=== PATIENT | female | born 1930 | race Caucasian/White ===

== ENCOUNTER 2018-08-14 10:49 | Outpatient (CLI) | payer MEDICARE, BC ==
--- NOTE | 2018-08-14 12:06 | RAD ---
Exam: XR Hip Lt 2-3 View HISTORY: Left hip pain COMPARISON: None FINDINGS: There is a left total hip prosthesis with a lateral plate and multiple cerclage wires seen. No hardwa re complication is appreciated. No fracture or dislocation is seen. There is a remote healed fracture involving the left superior and inferior pubic rami. Osteopenia is present. Vascular calcifi cations and phleboliths overlie the pelvis. IMPRESSION: 1. Osteopenia with remote fractures involving left superior and inferior pubic rami. 2. Left total hip prosthesis without hardware complication appreciated. 3. No acute fracture or dislocation is seen.
--- NOTE | 2018-08-14 12:09 | RAD ---
EXAM: XR Lumbar Spine Bending Min 4V PROVIDED CLINICAL HISTORY: Intervertebral disc disorder with radiculopathy on the left. COMPARISON: None FINDINGS: There are 5 nonrib-bearing lumbar-type vertebral bodies. Scattered minimal osteophytes are present. A wedge-shaped compression fracture is seen involving the T11 vertebral body as well as superior endplate of the T12 vertebral body. In addition there is slight wedge-shaped deformity involving the L1 vertebral body which is likely due to minimal compression fracture of indeterminate age. Schmorl's node is seen in the inferior plate of L1 vertebral body. No level of subluxation is seen. Facet degenerative changes are noted. Vascular calcifications are seen in the abdominal aorta and involving the iliac arteries. Partial vis ualization of left total hip prosthesis is noted. IMPRESSION: 1. Compression fractures involving the T11, T12, and inferior endplate L1 vertebral bodies of indeter minate age. 2. Mild degenerative changes. 3. Prominent vascular calcifications.
--- NOTE | 2018-08-14 12:26 | RAD ---
Exam: Cervical spine 4 views: HISTORY: Spondylosis of the cervical region without radiculopathy or myelopathy FINDINGS: Exam includes standing flexion and extension views. Extensive multilevel disc osteophytosis and facet arthrosis. Mild stable anterolisthesis of C6 on C7. No evidence for abnormal translation. Heterogeneous bony demineralization. No prevertebral soft tissue swelling. IMPRESSION: Severe cervical spondylosis with mild anterolisthesis of C6 on C7 without evidence for abnormal trans lation.
== END 2018-08-14 10:50 | disposition home or self-care (01) ==
LOC: RAD 10:49
PROVIDERS: ATTEND Specialist
DX: M51.16 Intervertebral disc disorders with radiculopathy, lumbar region (principal); M25.552 Pain in left hip; M47.812 Spondylosis without myelopathy or radiculopathy, cervical region; M43.12 Spondylolisthesis, cervical region; M48.54XA Collapsed vertebra, not elsewhere classified, thoracic region, initial encounter for fracture; M47.26 Other spondylosis with radiculopathy, lumbar region; I70.0 Atherosclerosis of aorta; I70.8 Atherosclerosis of other arteries; M85.80 Other specified disorders of bone density and structure, unspecified site; Z96.642 Presence of left artificial hip joint
CPT/HCPCS: 72050; 72120

== ENCOUNTER 2018-09-19 06:54 | Day surgery (SDC) | payer MEDICARE, BC ==
[2018-09-11 15:39] VITALS: BMI 33.3
--- NOTE | 2018-09-19 09:08 | RAD ---
XR Myelogram Lumbar Spine History: Intervertebral disc disorder with radiculopathy Comparison: Lumbar spine radiographs 2019 Findings: Patient was brought to the fluoroscopy suite. All questions were answered. Informed stent i s obtained. Timeout performed. Patient's back was prepped and draped in normal sterile fashion. 2 mL lidocaine was instilled into th e superficial soft tissues. Using a 22-gauge spinal needle the thecal sac was accessed at the L3/L4 interspace. 10 mL of contrast was instilled within the thecal sac. Patient tolerated the procedure we ll without complication. Impression: Technically successful fluoroscopic guided lumbar myelogram. Fluoroscopy time: 2.2 minutes Dose area product: 566 uGy meter squared.
--- NOTE | 2018-09-19 09:55 | CT ---
CT Lumbar Spine W Con History: M [age] intervertebral disc disorder Comparison: None. Findings: Visualized lung bases are clear. Moderate sliding hiatal hernia. Moderate vascular calcific ations. Mild dilatation right renal pelvis. Abnormal thickening of the presacral soft tissues. There is a compression fracture of T11, T12, and L1. Levels are as follows: L1/L2: Circumferential disc osteophyte complex. Mild facet arthrosis. No neural foraminal or spinal c anal narrowing. L2/L3: Mild degenerative posterior disc space height loss. Broad-based posterior disc osteophyte comp judith. Mild increased posterior epidural fat. No significant spinal canal narrowing. Mild ligamentum flavum flavum hypertrophy. Moderate bilateral neural foraminal narrowing. L3/L4: Circumferential disc bulge. Moderate facet arthrosis and ligamentum flavum hypertrophy. Spinal canal is narrowed to approximately 6 mm. Moderate bilateral neural foraminal narrowing. L4/L5: Mild degenerative disc space height loss and circumferential disc bulge. Moderate facet arthro federico. Moderate ligamentum flavum hypertrophy. Spinal canal measures approximately 8 mm. L5/S1: Mild degenerative disc space height loss. Circumferential disc bulge. Moderate facet arthropat hy. Moderate bilateral neural foraminal narrowing. Impression: 1. Multilevel evbl-kg-kybewkif spondylosis as described with neural foraminal and spinal canal narrow ing. 2. Compression fractures likely chronic from T11-L1 without significant retropulsion. 3. Narrowing of the interspinous space from L2-L5 with endplate sclerosis and remodeling.
== END 2018-09-19 09:45 | disposition home or self-care (01) ==
LOC: RAD 06:54
PROVIDERS: ATTEND Specialist
DX: M51.16 Intervertebral disc disorders with radiculopathy, lumbar region (principal); I10 Essential (primary) hypertension; E11.9 Type 2 diabetes mellitus without complications; E78.5 Hyperlipidemia, unspecified; F41.9 Anxiety disorder, unspecified; M10.9 Gout, unspecified; G89.29 Other chronic pain; C18.9 Malignant neoplasm of colon, unspecified; Z88.0 Allergy status to penicillin; Z88.2 Allergy status to sulfonamides; Z88.5 Allergy status to narcotic agent
CPT/HCPCS: 62304; 72132

== ENCOUNTER 2019-04-22 19:37 | Inpatient (IN) | payer MEDICARE, BC ==
[~2019-04-22 19:37] MED LIST: Iopamidol-370 76% 500 ML 1 ML ONE
[2019-04-22 20:06] LABS: #Eosinphils 0.2 thou/uL (0.0-0.7); #Lymphocytes 2.1 thou/uL (1.20-3.40); #Monocytes 0.6 thou/uL (0.11-0.59); #Neutrophils 3.7 thou/uL (1.40-6.50); %Basophils 0.6 % (0.0-1.0); %Eosinophils 2.8 % (0.0-10.0); %Lymphocytes 31.2 % (21.0-51.0); %Monocytes 9.1 % (0.0-10.0); %Neutrophils 56.3 % (42.0-75.0); Hemoglobin 13.9 g/dL (12.0-16.0); Mean Corpuscular HGB CONC 32.4 g/dL (32.0-36.0); Mean Corpuscular Hemoglobin 30.2 pg (27.0-31.0); Mean Corpuscular Volume 93.2 fL (78.0-98.0); Mean Platelet Volume 8.6 fL (7.4-10.4); Platelet Count 189 thou/uL (130-400); RBC Distribution Width 13.3 % (11.5-14.5); Red Blood Cell (RBC) Count 4.59 mill/uL (4.20-5.40); White Blood Cell (WBC) Count 6.6 thou/uL (4.8-10.8)
--- NOTE | 2019-04-22 20:22 | RAD ---
PORTABLE CHEST: 04/22/19 HISTORY: Shortness of breath. Heart size is slightly enlarged. There are atherosclerotic changes of the aorta. The lungs are clear of infiltrates. No signs of failure. IMPRESSION: No active intrathoracic disease. POS: [facility]
[2019-04-22 20:35] LABS: Albumin 3.9 g/dL (3.4-4.8); Anion Gap 17 mmol/L (10-20); BUN (Urea Nitrogen) 16 mg/dL (9.8-20.1); Bilirubin, Total 0.3 mg/dL (0.2-1.2); Calc. Creatinine Clearance 0 mL/min (70-130); Calcium 9.2 mg/dL (7.8-10.44); Carbon Dioxide 25 mmol/L (23-31); Chloride 99 mmol/L (98-107); Estimated GFR-MDRD 34; Glucose 353 mg/dL (83-110); Potassium 4.8 mmol/L (3.5-5.1); Protein, Total 6.9 g/dL (6.0-8.3); Sodium 136 mmol/L (136-145)
[2019-04-22 20:36] LABS: ALT (SGPT) 12 U/L (8-55); AST (SGOT) 13 U/L (5-34); Alkaline Phosphatase 85 U/L (40-110); CK (CPK) 48 U/L (29-168)
[2019-04-22 20:58] LABS: CKMB 1.2 ng/mL (0-6.6)
--- NOTE | 2019-04-22 21:18 | CT ---
CTA Angio Chest W WO Con HISTORY: Shortness of breath. Tachycardia. COMPARISON: None. FINDINGS: The lungs are clear of infiltrative process. No pleural effusions. No significant mediastinal or hilar adenopathy. The thoracic aorta is normal in caliber. An aortic va lve stent is present. The pulmonary artery opacification is suboptimal I see no signs of any central embolus. More peripher al emboli are not excluded. Visualized liver parenchyma shows no focal findings. IMPRESSION: No CT evidence for pulmonary embolus, peripheral emboli are not excluded on the basis of this exam.
[2019-04-22] MEDS ORDERED: Metoprolol Tartrate 5 MG/5 ML VIAL ONE (21:30)
[2019-04-22] MEDS ORDERED: Insulin Regular 300 UNITS/3 ML VIAL ONE (21:30)
[2019-04-22] MEDS ORDERED: Aspirin 325 MG TAB ONE (21:30)
[2019-04-22 22:55] VITALS: BMI 33.1
[2019-04-22] MEDS ORDERED: Ondansetron PF 4 MG/2 ML Vial IVP PRN (23:07)
[2019-04-22] MEDS ORDERED: HYDROcodone/Acetaminophen 5/325 mg Tablet PO PRN (23:07)
[2019-04-22] MEDS ORDERED: Ondansetron ODT 4 MG TAB SL PRN (23:07)
[2019-04-23] MEDS: HYDROcodone/Acetaminophen 5/325 mg Tablet PO PRN ×2 (00:14→06:25)
[2019-04-23 00:25] LABS: Troponin I 0.034 ng/mL (< 0.028)
[2019-04-23 03:09] LABS: Troponin I 0.026 ng/mL (< 0.028)
[2019-04-23] MEDS ORDERED: Zolpidem Tartrate 5 MG TAB PO PRN (07:56)
[2019-04-23] MEDS ORDERED: Ondansetron ODT 4 MG TAB PO PRN (07:56)
[2019-04-23] MEDS ORDERED: HYDROcodone/Acetaminophen 10/325 mg Tablet PO SCH (08:15)
--- NOTE | 2019-04-23 08:42 | HP ---
PRIMARY CARE PROVIDER: Dr. Larson. HISTORY OF PRESENT ILLNESS: Referred to the [facility] Hospitalist Service by [facility]. The patient states that she was just not feeling well, dizzy, a little tightness around her chest, some shortness of breath started yesterday afternoon. She had no sweats, but had some mild nausea. She had no distinct pressure or chest pain. 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 CURRENT MEDICATIONS: 1. Hydrocodone 10/325 one every 8 hours as needed for pain. 2. Gabapentin 300 mg twice a day. 3. Crestor 10 mg a day. 4. Levothyroxine 175 mcg a day. 5. Gabapentin 300 mg a day. 6. Cymbalta 30 mg a day. 7. Norvasc 10 mg a day. 8. Metformin 500 mg a day. 9. Metoprolol 50 mg a day. 10. Amiodarone 100 mg a day. 11. Protonix 40 mg a day. 12. Colace 200 mg p.o. twice a day. ALLERGIES: TO PENICILLINS AND SULFA. STATES HER REACTIONS TO PENICILLINS ARE SEVERE. PAST SURGICAL HISTORY: TAVR in 2019, colon cancer, colectomy with a colostomy 26 years ago, appendectomy at 14 years of age, benign breast biopsy. FAMILY HISTORY: Diabetes in mother, daughter, sister; heart disease, maternal grandmother had congestive heart failure, of a stroke; one sister with breast cancer. SOCIAL HISTORY: . DNAR. Nati Kinney daughter, surrogate decision maker at bedside. Tobacco, quit in 1981. Alcohol, very occasional. REVIEW OF SYSTEMS: General: Chronic headache starts in the neck goes to posterior head that is for which she takes the hydrocodone, gabapentin, etc. She sees a pain specialist, Dr. Suarez. She has decreased vision due to macular degeneration. No double vision or flashing lights. EAR, NOSE, AND THROAT: Sinus drainage. No ear pain. No nasal bleeding. No trouble swallowing. CARDIAC: See present illness. No orthopnea or paroxysmal nocturnal dyspnea. RESPIRATIONS: No cough, wheezing, or asthma. GASTROINTESTINAL: Occasional constipation, take stool softeners. No nausea, vomiting, abdominal pain, or blood in her stools. GENITOURINARY: She has a constant sensation of dysuria. She has had urine cultures that are negative. No blood. MUSCULOSKELETAL: No pain or swelling in her legs. NEUROLOGICAL: No strokes, seizures, or focal weakness. PSYCHIATRIC: No current anxiety or depression. SKIN: No bruising, bleeding, or rash. HEME/LYMPH: No tender or swollen lymph nodes in axilla, inguinal, or cervical area. PHYSICAL EXAMINATION: GENERAL: She is alert, oriented, cooperative lady, mildly hard of hearing. VITAL SIGNS: Temperature 98, pulse 120 and constant, respirations 17, O2 saturation 96, blood pressure 125/64. HEAD, EYES, EARS, NOSE, AND THROAT: Pupils are equal, round, and reactive. Extraocular movements are intact. Bilateral arcus senilis. Sclerae are white. Tympanic membranes clear. Nose clear. Oral mucous membranes are wet. Dental hygiene is good. NECK: Supple without jugular venous distention, adenopathy, or thyromegaly. CHEST: Clear to auscultation and percussion. HEART: Regular rate and rhythm, steady at 120. No appreciated gallops or murmurs. ABDOMEN: Soft. Bowel sounds are normal. No hepatosplenomegaly. No mass. No rebound. She does have a colostomy in the left lower quadrant. EXTREMITIES: No cyanosis, clubbing, or edema. PULSES: Carotid, radial, femoral, and dorsalis pedis pulses intact. SKIN: Warm and dry without bruises or rash. HEME/LYMPH: No tender or swollen lymph nodes in axilla, inguinal, or cervical area. NEUROLOGICAL: Cranial nerves 2 through 12 are intact. Moves all extremities. DIAGNOSTIC DATA: EKG; supraventricular tachycardia with wide QRS rate 120, question of delta wave reviewed by me. Chest x-ray, borderline cardiomegaly, no evidence of CHF or infiltrate reviewed by me. CTA of the thorax was done. No evidence for pulmonary emboli (I continued to be surprised that CTs are done for pulmonary emboli without a D-dimer). LABORATORY DATA: CBC normal. Comprehensive metabolic profile; creatinine 1.47, blood sugar 353, otherwise normal. BNP 267. Troponin 0.029, 0.034, 0.026. ADMITTING DIAGNOSES: 1. Supraventricular tachycardia with wide QRS. 2. Atrial fibrillation on amiodarone. 3. History of congestive heart failure. 4. Diabetes mellitus type 2. 5. Hypertension. 6. Elevated cholesterol. 7. Presence of TAVR. 8. Colostomy. PLAN: Continue home medicines. I have called Dr. Lopez. He will see her in consultation this morning. Job ID: [id number]
[2019-04-23] MEDS ORDERED: VIT E PO SCH (09:00)
[2019-04-23] MEDS ORDERED: COPPER PO SCH (09:00)
[2019-04-23] MEDS ORDERED: ZINC PO SCH (09:00)
[2019-04-23] MEDS ORDERED: Non-Formulary Item 1 EACH (Pantoprazole Sodium [Protonix] 40 MG) PO SCH (09:00)
[2019-04-23] MEDS ORDERED: VIT C PO SCH (09:00)
[2019-04-23] MEDS ORDERED: VIT A PO SCH (09:00)
[2019-04-23] MEDS ORDERED: AMIODARONE HCL 100 MG PO SCH (09:00)
[2019-04-23] MEDS ORDERED: FLU VACC TS2019-20(65YR UP)/PF 180 MCG/0.5 ML SYRINGE IM ONE (09:00)
[2019-04-23 09:05] LABS: Free T4 (Free Thyroxine) 1.28 ng/dL (0.70-1.48); Thyroid Stimulating Hormone 1.7611 uIU/mL (0.35-4.94)
[2019-04-23] MEDS ORDERED: PROPOFOL 200 MG/20 ML VIAL ONE (09:19)
[2019-04-23] MEDS: Docusate 100 MG CAP PO SCH ×2 (09:26→20:57)
[2019-04-23] MEDS: Vit A,C & E/Lutein/Minerals Tablet PO SCH (09:26)
[2019-04-23] MEDS: Levothyroxine 175 MCG TAB PO SCH (09:26)
[2019-04-23] MEDS: Amiodarone 200 MG TAB PO SCH (09:27)
[2019-04-23] MEDS: HYDROcodone/Acetaminophen 10/325 mg Tablet PO SCH ×2 (09:39→16:41)
[2019-04-23] MEDS: Gabapentin 300 MG CAP PO SCH ×2 (09:39→20:20)
[2019-04-23] MEDS ORDERED: Adenosine 6 MG/2 ML VIAL ONE (12:04)
[2019-04-23] MEDS ORDERED: Enoxaparin Sodium 100 MG/ML SYRINGE SC SCH (12:45)
--- NOTE | 2019-04-23 13:05 | CON ---
DATE OF CONSULTATION: REASON FOR CONSULTATION: Atrial flutter. HISTORY OF PRESENT ILLNESS: Ms. Rivers is an 88-year-old woman, who was seen and evaluated in the past. She has a history of atrial fibrillation, not on anticoagulation therapy in addition to TAVR in 2019. She recently presented with several weeks of heart fluttering. She was found to have a heart rate in the 130s. She proceeded to the emergency room with the above. No chest pain or pressure noted. No other associated ameliorating or exacerbating factors present. PAST MEDICAL HISTORY: Previous colon cancer, hyperlipidemia, diabetes mellitus, gout, hypertension, acid reflux, UTI, CAD, atrial fibrillation, congestive heart failure, status post TAVR, lumpectomy, hip surgery, and appendectomy. FAMILY HISTORY: Negative for CAD. HOME MEDICATIONS: Include: 1. Gabapentin. 2. Rosuvastatin. 3. Plavix. 4. Metoprolol. 5. Amlodipine. 6. Pantoprazole. 7. Gabapentin. 8. Colace. 9. Amiodarone. 10. Synthroid. 11. Cymbalta. 12. Hydrocodone. REVIEW OF SYSTEMS: A 10-point review of systems is reviewed and as above. Otherwise, negative. PHYSICAL EXAMINATION: GENERAL: Patient is a pleasant woman, who is in no acute distress. The patient appears their stated age. VITAL SIGNS: Blood pressure 150/60, pulse 129, respirations 20. NEUROLOGIC: The patient is alert and oriented x3 with no focal neurologic deficits. HEENT: Sclerae without icterus. Mouth has moist mucous membranes with normal pallor. NECK: No JVD. Carotid upstroke brisk. No bruits bilaterally. LUNGS: Clear to auscultation with unlabored respirations. BACK: No scoliosis or kyphosis. CARDIAC: Tachycardic. ABDOMEN: Soft, nontender, nondistended. No peritoneal signs present. No hepatosplenomegaly. No abnormal striae. EXTREMITIES: 2+ femoral and 2+ dorsalis pedis pulses. No cyanosis, clubbing, or edema. SKIN: No gross abnormalities. PERTINENT LABORATORY DATA: Hemoglobin 13.9. BNP 555. Peak troponin 0.03. AST and ALT 13 and 12. Creatinine 1.47. HOSPITAL COURSE: The patient was given adenosine to confirm atrial flutter. 12 mg of adenosine was given. This did confirm atrial flutter. IMPRESSION: Atrial flutter. RECOMMENDATIONS: Certainly difficult to try and rate control at this point given atrial flutter, 2:1 block. She is currently on amiodarone therapy. At this point, we would recommend proceeding with SARAY and cardioversion. I discussed procedure in full detail with Ms. Rivers as well as her . Risks included, not limited to the following: Damage to teeth, mouth, back of throat, damage to esophagus as well as emergency surgery. I also discussed cardioversion including burning of skin, failed cardioversion, stroke, need for repeat cardioversion. She may also benefit from atrial flutter ablation. We will consult with EP in a.m. Further recommendations pending the above. Job ID: [id number]
--- NOTE | 2019-04-23 14:49 | OP ---
DATE OF PROCEDURE: 04/23/2019 PREPROCEDURE DIAGNOSIS: Atrial flutter. POSTPROCEDURE DIAGNOSIS: Sinus rhythm. COMPLICATIONS: None. PROCEDURE PERFORMED: Synchronized cardioversion. DESCRIPTION OF PROCEDURE: The patient was consented for the procedure. I discussed procedure in full detail with both her and her son. Risks included, not limited to the following: Stroke, burning of skin, need for repeat cardioversion, failed cardioversion. All questions were answered. Given the above, the patient agreed to proceed with above procedure. SARAY was performed. After SARAY and no thrombus present, I decided to proceed with synchronized cardioversion. Synchronized cardioversion was successful at 150 joules. IMPRESSION: Successful synchronized cardioversion. Job ID: [id number]
--- NOTE | 2019-04-23 14:49 | OP ---
DATE OF PROCEDURE: 04/23/2019 PREPROCEDURE DIAGNOSIS: Atrial flutter. POSTPROCEDURE DIAGNOSIS: Atrial flutter. PROCEDURE PERFORMED: Transesophageal echocardiogram. DESCRIPTION OF PROCEDURE: The patient was consented for the procedure. I discussed the procedure in full detail with both her and her son-in-law. Risks included, not limited to the following: Damage to teeth, mouth, back of throat, and damage to esophagus requiring emergency surgery as well as reaction to medication. All questions were answered. Given the above, the patient agreed to proceed with above procedure. FINDINGS: Overall LVEF estimated at 55% to 60%. Left atrium appendage is well visualized. There appears to be excellent contraction of the left atrial appendage. No thrombus present. IMPRESSION: 1. No thrombus present within the left atrial appendage. 2. LVEF 55% to 60%. Job ID: [id number]
[2019-04-23] MEDS: Sodium Chloride 0.9% 1,000 ML IV SCH ×2 (15:26→16:44)
[2019-04-23] MEDS ORDERED: Dextrose 50% Abboject 50 ML SYRINGE SLOW IVP PRN (15:49)
[2019-04-23] MEDS ORDERED: Dextrose 5% in Water 1,000 ML IV PRN (15:49)
[2019-04-23 16:10] LABS: Hemoglobin A1c 10.4 % (4.0-6.0)
[2019-04-23] MEDS: HumaLOG 300 UNITS/3 ML VIAL SC PRN ×2 (16:43→20:36)
[2019-04-23] MEDS: Acetaminophen 325 MG TAB PO PRN (20:20)
[2019-04-23] MEDS: Apixaban 5 MG TAB PO SCH (20:23)
[2019-04-23] MEDS ORDERED: Rosuvastatin 10 MG TAB PO SCH (21:00)
[2019-04-23] MEDS ORDERED: DULoxetine 30 MG CAP PO SCH (21:00)
[2019-04-23] MEDS ORDERED: metFORMIN 500 MG TAB PO SCH (21:00)
[2019-04-23] MEDS ORDERED: Amlodipine 10 MG TAB PO SCH (21:00)
[2019-04-24] MEDS ORDERED: Gabapentin 300 MG CAP PO SCH
[2019-04-24] MEDS ORDERED: Gabapentin 100 MG CAP PO SCH
[2019-04-24] MEDS: HYDROcodone/Acetaminophen 10/325 mg Tablet PO SCH ×2 (01:26→09:13)
[2019-04-24 02:52] LABS: Bacteria/HPF 4+ HPF (None Seen); RBC/HPF 21-50 HPF (0-3); Squamous Epithelial 0-3 HPF (0-3); Transitional Epithelial 0-3 HPF (None Seen); WBC/HPF Greater than 50 HPF (0-3); Yeast-Budding 2+ HPF (None Seen)
[2019-04-24 02:59] LABS: Bilirubin Negative (Negative); Blood, Urine 1+ (Negative); Clarity Extra Turbid (Clear); Glucose, Urine (Dipstick) 200 mg/dL (Negative); Leukocyte 500 Leu/uL (Negative); Nitrite Negative (Negative); Protein, Urine (Dipstick) 100 mg/dL (Neg-Trace); Urobilinogen Normal mg/dL (Less than 2)
[2019-04-24 03:00] LABS: Urine Culture Reflex No No
[2019-04-24] MEDS: Sodium Chloride 0.9% 1,000 ML IV SCH (03:35)
[2019-04-24] MEDS: Acetaminophen 325 MG TAB PO PRN (03:37)
[2019-04-24 03:45] VITALS: TEMP 98
[2019-04-24 05:09] LABS: #Eosinphils 0.2 thou/uL (0.0-0.7); #Monocytes 0.6 thou/uL (0.11-0.59); #Neutrophils 2.3 thou/uL (1.40-6.50); %Basophils 0.7 % (0.0-1.0); %Eosinophils 4.1 % (0.0-10.0); %Lymphocytes 39.2 % (21.0-51.0); %Monocytes 11.3 % (0.0-10.0); %Neutrophils 44.7 % (42.0-75.0); Hemoglobin 12.1 g/dL (12.0-16.0); Mean Corpuscular Hemoglobin 30.1 pg (27.0-31.0); Mean Corpuscular Volume 93.9 fL (78.0-98.0); Mean Platelet Volume 8.8 fL (7.4-10.4); Platelet Count 173 thou/uL (130-400); RBC Distribution Width 13.3 % (11.5-14.5); Red Blood Cell (RBC) Count 4.02 mill/uL (4.20-5.40); White Blood Cell (WBC) Count 5.2 thou/uL (4.8-10.8)
[2019-04-24 05:40] LABS: Anion Gap 14 mmol/L (10-20); BUN (Urea Nitrogen) 16 mg/dL (9.8-20.1); Calc. Creatinine Clearance 44 mL/min (70-130); Carbon Dioxide 25 mmol/L (23-31); Chloride 102 mmol/L (98-107); Estimated GFR-MDRD 38; Glucose 220 mg/dL (83-110); Potassium 5.4 mmol/L (3.5-5.1); Sodium 136 mmol/L (136-145)
[2019-04-24] MEDS: HumaLOG 300 UNITS/3 ML VIAL SC PRN (06:01)
[2019-04-24] MEDS: Gabapentin 300 MG CAP PO SCH (09:14)
[2019-04-24] MEDS: Amiodarone 200 MG TAB PO SCH (09:14)
[2019-04-24] MEDS: Levothyroxine 175 MCG TAB PO SCH (09:14)
[2019-04-24] MEDS: Docusate 100 MG CAP PO SCH (09:16)
[2019-04-24] MEDS: Apixaban 5 MG TAB PO SCH (09:16)
[2019-04-24] MEDS: Vit A,C & E/Lutein/Minerals Tablet PO SCH (09:16)
--- NOTE | 2019-04-24 09:16 | PDOC.CPN ---
- Subjective Date: 04/24/19 Time: 09:14 Interval history: Patient without complaints. Has remained in NSR overnight. - Review of Systems General: denies: fever/chills, weight/appetite/sleep changes, night sweats, fatigue Respiratory: denies: cough, congestion, shortness of breath, exercise intolerance Cardiovascular: denies: chest pain, palpitation, edema, paroxysmal nocturnal dyspnea, orthopnea Gastrointestinal: denies: nausea, vomiting, diarrhea, constipation, abd pain, GI bleeding Musculoskeletal: denies: pain, tenderness, stiffness, swelling, arthritis/ arthralgias Neurological: denies: numbness, syncope, seizure, weakness - Objective Allergies/Adverse Reactions: Allergies Allergy/AdvReac Type Severity Reaction Status Date / Time Penicillins Allergy Verified 04/22/19 23:34 Sulfa (Sulfonamide Allergy Verified 04/22/19 23:34 Antibiotics) Visit Medications: Current Medications Acetaminophen (Tylenol) 650 mg PO Q4H PRN PRN Reason: Headache/Fever/Mild Pain (1-3) Last Admin: 04/24/19 03:37 Dose: 650 mg Hydrocodone Bitart/Acetaminophen ([place] 10/325) 1 tab PO Q8H [facility] Last Admin: 04/24/19 01:26 Dose: 1 tab Amiodarone HCl (Cordarone) 100 mg PO QAM [facility] Last Admin: 04/23/19 09:27 Dose: 100 mg Amlodipine Besylate (Norvasc) 10 mg PO QPM [facility] Last Admin: 04/23/19 20:23 Dose: 10 mg Apixaban (Eliquis) 5 mg PO BID [facility] Last Admin: 04/23/19 20:23 Dose: 5 mg Dextrose/Water (Dextrose 50%) 25 gm SLOW IVP PRN PRN PRN Reason: Hypoglycemia Docusate Sodium (Colace) 200 mg PO BID [facility] Last Admin: 04/23/19 20:57 Dose: Not Given Duloxetine HCl (Cymbalta) 30 mg PO QPM [facility] Last Admin: 04/23/19 20:23 Dose: 30 mg Gabapentin (Neurontin) 300 mg PO BID [facility] Last Admin: 04/23/19 20:20 Dose: 300 mg Gabapentin (Neurontin) 300 mg PO 0000 [facility] Last Admin: 04/24/19 01:27 Dose: 300 mg Glucagon (Glucagon) 1 mg IM PRN PRN PRN Reason: Hypoglycemia Sodium Chloride (Normal Saline 0.9%) 1,000 mls @ 100 mls/hr IV .Q10H [facility] Last Admin: 04/24/19 03:35 Dose: 1,000 mls Dextrose/Water (D5w) 1,000 mls @ 0 mls/hr IV .Q0M PRN PRN Reason: Hypoglycemia Insulin Human Lispro (Humalog) 0 units SC .MILD SLIDING SCALE PRN PRN Reason: Mild Correctional Scale Last Admin: 04/24/19 06:01 Dose: 3 units Levothyroxine Sodium (Synthroid) 175 mcg PO DAILY [facility] Last Admin: 04/23/19 09:26 Dose: 175 mcg Metformin HCl (Glucophage) 500 mg PO QPM [facility] Last Admin: 04/23/19 20:23 Dose: 500 mg Metoprolol Succinate (Toprol Xl) 50 mg PO QAM [facility] Last Admin: 04/23/19 09:27 Dose: 50 mg Multivitamins/Minerals (Ocuvite With Lutein) 1 tab PO DAILY [facility] Last Admin: 04/23/19 09:26 Dose: 1 tab Ondansetron HCl (Zofran Odt) 4 mg PO Q6H PRN PRN Reason: Nausea/Vomiting Pantoprazole Sodium (Protonix) 40 mg PO DAILY [facility] Last Admin: 04/23/19 09:27 Dose: 40 mg Rosuvastatin Calcium (Crestor) 10 mg PO QPM [facility] Last Admin: 04/23/19 20:20 Dose: 10 mg Sodium Chloride (Flush - Normal Saline) 10 ml IVF Q12HR [facility] Last Admin: 04/23/19 20:57 Dose: Not Given Sodium Chloride (Flush - Normal Saline) 10 ml IVF PRN PRN PRN Reason: Saline Flush Zolpidem Tartrate (Ambien) 5 mg PO HSPRN PRN PRN Reason: Insomnia Vital Signs & Weight: Vital Signs Temp Pulse Resp BP Pulse Ox 04/24/19 07:33 98 F 79 20 196/83 H 94 L 04/24/19 03:42 98 F 81 20 174/75 H 94 L Weight 199 lb - Physical Exam General: alert & oriented x3, appears well HEENT: mucus membranes moist Neck: supple neck Cardiac: regular rate and rhythm Lungs: clear to auscultation Neuro: grossly intact Abdomen: soft, non-tender Extremities: no cyanosis, no clubbing Skin: clear - Labs Result Diagrams: 04/24/19 04:38 04/24/19 04:38 Troponin/CKMB CK-MB (CK-2) 1.2 ng/mL (0-6.6) 04/22/19 19:56 Troponin I 0.026 ng/mL (< 0.028) 04/23/19 02:34 - Assessment/Plan Assessment/Plan: 1. Typical AFlutter s/p SARAY/DCCV Patient stable. Continue current meds. On Eliquis 5mg BID. Ok for discharge. F/ U in 2 weeks as outpatient. Will arrange outpatient EP evaluation.
[2019-04-24 09:23] VITALS: BP 160/68
--- NOTE | 2019-04-25 01:48 | DIS ---
DATE OF ADMISSION: 04/23/2019 DATE OF DISCHARGE: 04/24/2019 REASON FOR HOSPITALIZATION: For dizziness and tightness around her chest. SIGNIFICANT FINDINGS: The patient was found to be in atrial fibrillation with rapid ventricular response. PROCEDURES PERFORMED AND TREATMENTS RENDERED: The patient went for transesophageal echocardiogram with cardioversion on 04/23/2019, with Dr. Zamorano-please see full operative report for details. The patient tolerated the procedure well without intraoperative complications. The patient was seen and evaluated postoperatively and recommended safe for discharge by Cardiology. CONDITION ON DISCHARGE: Stable. SPECIFIC INSTRUCTIONS FOR THE PATIENT/FAMILY: 1. The patient is recommended to take all medications as directed, to be re-evaluated by primary care physician, and Cardiology in the upcoming weeks. 2. The patient is recommended to follow up with primary care physician in the next 5 to 7 days. 3. The patient is recommended to follow up with Cardiology in the next 1 to 2 weeks. 4. The patient is recommended to follow up with all other specialists as directed. 5. The patient is recommended to return to acute care hospital immediately if signs or symptoms return, worsen, or any other new symptoms occur. DISCHARGE MEDICATIONS: Please see full discharge medication list for details as there have been no changes. 1. Eliquis 5 mg one tablet p.o. b.i.d. 2. Clonidine 0.1 mg one tablet p.o. b.i.d. p.r.n. systolic blood pressure greater than 180. 3. Colace 200 mg p.o. b.i.d. 4. Protonix 40 mg p.o. q.a.m. 5. Amiodarone 100 mg p.o. q.a.m. 6. Metoprolol succinate 50 mg p.o. q.a.m. 7. Multivitamin one tablet p.o. daily. 8. Metformin 500 mg one tablet p.o. q.p.m. 9. Amlodipine 10 mg one tablet p.o. q.p.m. 10. Cymbalta 30 mg one tablet p.o. q.p.m. 11. Gabapentin 300 mg one tablet p.o. daily. 12. Synthroid 175 mcg one tablet p.o. daily. 13. Crestor 10 mg one tablet p.o. at bedtime. 14. [place] 10/325 one tab p.o. q.8 hours p.r.n. pain. Greater than 35 minutes spent coordinating care and discharge process for this patient. Job ID: [id number]
--- NOTE | 2019-04-27 00:08 | EKG ---
Test Reason : POST CARDIOVERSION Blood Pressure : / mmHG Vent. Rate : 088 BPM Atrial Rate : 088 BPM P-R Int : 178 ms QRS Dur : 102 ms QT Int : 408 ms P-R-T Axes : 067 -37 102 degrees QTc Int : 493 ms Normal sinus rhythm Left axis deviation Minimal voltage criteria for LVH, may be normal variant T wave abnormality, consider lateral ischemia Prolonged QT Abnormal ECG When compared with ECG of 22-APR-2019 20:32, (Unconfirmed) Significant changes have occurred Confirmed by Mackenzie BAUMAN ([id number]) on 04/27/2019 12:08:14 AM Referred By: MANDA Confirmed By:Mackenzie BAUMAN
--- NOTE | 2019-04-27 04:08 | PQF ---
CHITRA,KIRA ZOLTAN GONSALES [id number] [id number] CLINICAL DOCUMENTATION CLARIFICATION FORM: POST DISCHARGE Addendum to original discharge summary date: ____ Late entry note date: __ DATE:04/27/2019 ATTN: Zoltan Bejarano Please exercise your independent, professional judgment in responding to the clarification form. Clinical indicators are provided on the bottom of this form for your review Please check appropriate box(s): HEART FAILURE: A. TYPE: [ ] Systolic / HFrEF [ XX ] Diastolic / HFpEF [ ] Combined Systolic / Diastolic B. ACUITY [ ] Acute [ ] Acute on Chronic [ ] Chronic [ ] Other diagnosis [ ] Unable to determine In addition, please specify: Present on Admission (POA): [ XX ] Yes [ ] No [ ] Unable to determine For continuity of documentation, please document condition throughout progress notes and discharge summary. Thank You. CLINICAL INDICATORS - SIGNS / SYMPTOMS / LABS Laboratory Chemistry 04/22 BNP 267.0 Laboratory Chemistry 04/22 Troponin I 0.029 H&P 04/23 Dr Delong Pt states that she was just not feeling well, dizzy, a little tightness around her chest, some SOB started yesterday afternoon Cardiology Consult 04/23 Dr Zamorano She recently p[resented with several weeks of heart fluttering. She was found to have heart rate in 130s Operative report 04/23 Dr Zamorano Findings LVEF estimated 55% to 60% RISKS: H&P 04/23 88 year old H&P 04/23 Pertinent for Atrial Fibrillation H&P 04/23 Hypertension H&P 04/23 Congestive Heart failure H&P p3 04/23 Supraventricular tachycardia with wide QRS Cardiology consult 04/23 Atrial flutter TREATMENTS: MAY 23 Adenosine MAY 23 Amiodarone MAY 23 Aspirin Cardiology consult 04/23 Gregg Buckner Operative report p1 04/23 SARAY with Cardioversion (This form is maintained as a part of the permanent medical record) 2014 [email or web address], [employer]. All Rights Reserved [email or web address]
== END 2019-04-24 14:35 | disposition home health service (06) | DRG 309 ==
LOC: ERS 19:37 → 2SW 22:42 → OBSVTOIN 04-23 09:42
PROVIDERS: ADMIT Internal Medicine; ATTEND Internal Medicine
PROC: 5A2204Z Restoration of Cardiac Rhythm, Single (ICD-10-PCS; principal; 2019-04-23)
PROC: B24BZZ4 Ultrasonography of Heart with Aorta, Transesophageal (ICD-10-PCS; 2019-04-23)
DX: I48.3 Typical atrial flutter (principal); I50.32 Chronic diastolic (congestive) heart failure; I48.91 Unspecified atrial fibrillation; I47.1 Supraventricular tachycardia; I48.92 Unspecified atrial flutter; E03.8 Other specified hypothyroidism; E78.00 Pure hypercholesterolemia, unspecified; I11.0 Hypertensive heart disease with heart failure; Z79.899 Other long term (current) drug therapy; Z79.890 Hormone replacement therapy; Z88.0 Allergy status to penicillin; Z88.2 Allergy status to sulfonamides; Z90.49 Acquired absence of other specified parts of digestive tract; Z79.01 Long term (current) use of anticoagulants; Z95.2 Presence of prosthetic heart valve; Z93.3 Colostomy status; Z85.038 Personal history of other malignant neoplasm of large intestine
CPT/HCPCS: 36415; 36416; 71045; 71275; 80048; 80053; 81001; 82550; 82553; 83036; 83880; 84439; 84443; 84481; 84484; 85025; 87077; 87086; 87186; 92960; 93005; 93010; 93312; 94760; 96361; 96374; 96375; J0153; J1650; J1815; J2704; Q9967

== ENCOUNTER 2019-04-29 14:43 | Inpatient (IN) | payer MEDICARE, BC ==
[2019-04-29 15:36] LABS: #Monocytes 0.5 thou/uL (0.11-0.59); #Neutrophils 3.5 thou/uL (1.40-6.50); %Basophils 0.2 % (0.0-1.0); %Eosinophils 0.4 % (0.0-10.0); %Lymphocytes 33.1 % (21.0-51.0); %Monocytes 8.6 % (0.0-10.0); %Neutrophils 57.8 % (42.0-75.0); Mean Corpuscular HGB CONC 32.4 g/dL (32.0-36.0); Mean Corpuscular Hemoglobin 30.3 pg (27.0-31.0); Mean Corpuscular Volume 93.6 fL (78.0-98.0); Mean Platelet Volume 8.8 fL (7.4-10.4); Platelet Count 222 thou/uL (130-400); RBC Distribution Width 13.6 % (11.5-14.5); Red Blood Cell (RBC) Count 4.31 mill/uL (4.20-5.40); White Blood Cell (WBC) Count 6.1 thou/uL (4.8-10.8)
[2019-04-29 15:39] LABS: INR-International Normal Ratio 1.6; PTT 44.3 SEC (22.9-36.1); Prothrombin Time 18.5 SEC (12.0-14.7)
[2019-04-29] MEDS ORDERED: Diltiazem 125 MG in Sodium Chloride 0.9% 100 ML IVPB SCH (15:45)
--- NOTE | 2019-04-29 15:47 | RAD ---
Chest one view HISTORY: Dyspnea. COMPARISON: 04/22/2019. FINDINGS: Cardiac silhouette is magnified and enlarged. Pulmonary vasculature upper limits of normal. Patient is slightly rotated rightward. Calcification within the arterial structures. Aortic valve stent partially visualized. No lobar consolidation or evidence of pneumothorax. phototypesetting equipment monitor leads overlie the chest. Old righ t rib fractures evident. IMPRESSION: Cardiomegaly and other chronic-type findings are stable.
[2019-04-29 15:48] LABS: ALT (SGPT) 11 U/L (8-55); AST (SGOT) 14 U/L (5-34); Albumin 3.9 g/dL (3.4-4.8); Alkaline Phosphatase 80 U/L (40-110); Anion Gap 17 mmol/L (10-20); BUN (Urea Nitrogen) 16 mg/dL (9.8-20.1); Bilirubin, Total 0.6 mg/dL (0.2-1.2); CK (CPK) 55 U/L (29-168); Calc. Creatinine Clearance 0 mL/min (70-130); Calcium 8.6 mg/dL (7.8-10.44); Carbon Dioxide 24 mmol/L (23-31); Chloride 96 mmol/L (98-107); Estimated GFR-MDRD 36; Globulin 3.3 g/dL (2.4-3.5); Glucose 322 mg/dL (83-110); Potassium 4.6 mmol/L (3.5-5.1); Protein, Total 7.2 g/dL (6.0-8.3); Sodium 132 mmol/L (136-145)
[2019-04-29] MEDS ORDERED: Dextrose 5% in Water 1,000 ML IV PRN (19:10)
[2019-04-29] MEDS ORDERED: Dextrose 50% Abboject 50 ML SYRINGE SLOW IVP PRN (19:10)
[2019-04-29 19:13] LABS: Troponin I Less than 0.010 ng/mL (< 0.028)
[2019-04-29] MEDS ORDERED: Acetaminophen 650 MG Suppository PR PRN (19:14)
[2019-04-29] MEDS ORDERED: Magnesium Oxide 400 MG TAB PO SCH (19:15)
--- NOTE | 2019-04-29 19:19 | PDOC.HHP ---
Hospitalist HPI - History of Present Illness Weakness History of Present Illness: Ms. Rivers is a pleasant 88 year old woman who was referred to the ED after following up with her PCP Dr. Larson and noted to be tachycardic in the 130s. She has been in Afib RVR. She was recently discharged from the hospital on and is status post synchronized cardioversion done by Dr. 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 Per family, she became tachycardic the next day after being home and has had a HR in the 130s ever since. The appointment today was a routine follow-up. She has been generally weak since coming home from the hospital and has not been able to stand on her own with the help of her walker as she could prior to her admission. Family have put adult pads on her to lessen the trips to the bathroom. She has been complaining of dysuria for the last few days. Also has developed a cold with a productive cough however she swallows the phlegm and at times cant bring it back up. No fevers but last night family state she appeared flushed. Patient was started on Eliquis which she has continued to take. ED Course: On arrival she had a HR of 127. She was given Cardizem and HR improved to 60. It has been in the 100 range since. CXR showed cardiomegaly, no acute changes. Labs showed a low Mg+ of 1.5, elevated BNP of 468.7, normal troponin. CK 55, Na+ 132. BUN 16, Creat 1.38, GFR 36 (essentially stable renal function). FBC was unremarkable. Hospitalist ROS - Review of Systems Constitutional: reports: weakness Respiratory: reports: cough, sputum (unknown color). denies: dry, shortness of breath, hemoptysis, SOB with excertion, pleuritic pain, wheezing, other Cardiovascular: denies: chest pain, palpitations, orthopnea, paroxysmal noc. dyspnea, edema, light headedness, other Gastrointestinal: denies: nausea, vomiting, abdominal pain, diarrhea, constipation, melena, hematochezia, other Genitourinary: reports: dysuria. denies: frequency, incontinence, hematuria, retention, other Musculoskeletal: denies: neck pain, shoulder pain, arm pain, back pain, hand pain, leg pain, foot pain, other Skin: denies: rash, lesions, tania, bruising, other Neurological: denies: weakness, numbness, incoordination, change in speech, confusion, seizures, other Hospitalist History - Past Medical History Source: patient, family Cardiac: reports: AFIB, CAD, CHF, HTN, Hyperlipidemia Psych: reports: Anxiety - Past Surgical History Past Surgical History: reports: Other (Colon resection, colostomy, Synchronized cardioversion) - Family History Family History: reports: no pertinent history - Social History Smoking Status: Former smoker Alcohol: reports: None Drugs: reports: none Living Situation: With Family Activity level: uses cane/walker (currently unable to walk due to weakness) - Exam General Appearance: NAD, awake alert Eye: PERRL, anicteric sclera ENT: normocephalic atraumatic, no oropharyngeal lesions, moist mucosa Neck: supple, symmetric, no lymphadenopathy Heart: normal peripheral pulses, irregular Respiratory: CTAB, no wheezes, no rales, no ronchi, normal chest expansion Gastrointestinal: soft, non-tender, non-distended, normal bowel sounds Extremities: 2+ LE edema Extremities - other findings: swelling worse on right leg Skin: normal turgor, no lesions, no rashes Neurological: cranial nerve grossly intact, normal sensation to touch, no weakness Musculoskeletal: normal tone, normal strength, no muscle wasting Psychiatric: normal affect, normal behavior, oriented to person, oriented to place Hospitalist Results - Labs Result Diagrams: 04/29/19 15:06 04/29/19 15:06 Lab results: WBC 6.1 thou/uL (4.8-10.8) 04/29/19 15:06 Hgb 13.0 g/dL (12.0-16.0) 04/29/19 15:06 Hct 40.3 % (36.0-47.0) 04/29/19 15:06 MCV 93.6 fL (78.0-98.0) 04/29/19 15:06 Plt Count 222 thou/uL (130-400) 04/29/19 15:06 Neutrophils % 57.8 % (42.0-75.0) 04/29/19 15:06 Sodium 132 mmol/L (136-145) L 04/29/19 15:06 Potassium 4.6 mmol/L (3.5-5.1) 04/29/19 15:06 Chloride 96 mmol/L (98-107) L 04/29/19 15:06 Carbon Dioxide 24 mmol/L (23-31) 04/29/19 15:06 BUN 16 mg/dL (9.8-20.1) 04/29/19 15:06 Creatinine 1.38 mg/dL (0.6-1.1) H 04/29/19 15:06 Glucose 322 mg/dL (83-110) H 04/29/19 15:06 Calcium 8.6 mg/dL (7.8-10.44) 04/29/19 15:06 Total Bilirubin 0.6 mg/dL (0.2-1.2) 04/29/19 15:06 AST 14 U/L (5-34) 04/29/19 15:06 ALT 11 U/L (8-55) 04/29/19 15:06 Alkaline Phosphatase 80 U/L (40-110) 04/29/19 15:06 Creatine Kinase 55 U/L (29-168) 04/29/19 15:06 Troponin I Less than 0.010 ng/mL (< 0.028) 04/29/19 18:14 B-Natriuretic Peptide 468.7 pg/mL (0-100) H 04/29/19 15:06 Serum Total Protein 7.2 g/dL (6.0-8.3) 04/29/19 15:06 Albumin 3.9 g/dL (3.4-4.8) 04/29/19 15:06 - EKG Interpretation EKG: Sinus tachycardia, HR 122 Hospitalist H&P A/P - Problem (1) Tachycardia with heart rate 121-140 beats per minute Code(s): R00.0 - TACHYCARDIA, UNSPECIFIED Status: Acute (2) Weakness generalized Code(s): R53.1 - WEAKNESS Status: Acute (3) Dysuria Code(s): R30.0 - DYSURIA Status: Acute (4) Hypomagnesemia Code(s): E83.42 - HYPOMAGNESEMIA Status: Acute (5) Essential hypertension Code(s): I10 - ESSENTIAL (PRIMARY) HYPERTENSION Status: Acute (6) CAD (coronary artery disease) Code(s): I25.10 - ATHSCL HEART DISEASE OF [place] CORONARY ARTERY W/O ANG PCTRS Status: Acute (7) Atrial fibrillation status post cardioversion Code(s): I48.91 - UNSPECIFIED ATRIAL FIBRILLATION Status: Acute (8) Diabetes mellitus Code(s): E11.9 - TYPE 2 DIABETES MELLITUS WITHOUT COMPLICATIONS Status: Acute - Plan Plan: Continuous cardiac monitoring. Consult Cardiology. UA/UCx, bladder scan (post void) to assess for urinary retention. Replace magnesium, monitor electrolytes and replace as necessary. Monitor glucose, ISS ordered. Monitor BP. Resume home meds once verified. Orthostatic BPs. GI Prophylaxis with Protonix which she takes at home. Patient eating/drinking well. Fluid restriction for now, given history of CHF. Is on low dose eliquis, 2.5 mg BID. Venous doppler, given right leg swelling and sedentary. PT/OT, may benefit from rehab screening. Code status: FULL. Surrogate decision maker is her daughter Nati Kinney. Case discussed with Dr. Covarrubias who agrees with plan as above.
[2019-04-29] MEDS ORDERED: cloNIDine 0.1 MG TAB PO PRN ×2 (20:43→23:32)
[2019-04-29] MEDS ORDERED: Famotidine/PF 20 mg/2ml Vial SLOW IVP SCH (21:00)
--- NOTE | 2019-04-29 21:25 | ULT ---
US Venous Doppler Bilat History: Lower extremity pain and edema Comparison: None. Findings: Real-time grayscale, color, and spectral analysis bilateral lower extremity venous system w as performed. The common femoral, femoral, proximal portions greater saphenous and deep femoral veins as well as the popliteal and posterior tibial veins were interrogated. Normal flow, augmentation, and compression. Impression: No deep venous thrombosis.
[2019-04-29 21:38] LABS: Troponin I Less than 0.010 ng/mL (< 0.028)
[2019-04-29] MEDS: Amlodipine 10 MG TAB PO SCH (21:38)
[2019-04-29] MEDS: Apixaban 5 MG TAB PO SCH (21:41)
[2019-04-29] MEDS: HYDROcodone/Acetaminophen 10/325 mg Tablet PO SCH (21:41)
[2019-04-29] MEDS: Docusate 100 MG CAP PO SCH (21:47)
[2019-04-29] MEDS: Rosuvastatin 10 MG TAB PO SCH (21:48)
[2019-04-29] MEDS: Gabapentin 300 MG CAP PO SCH (21:48)
[2019-04-29] MEDS: DULoxetine 30 MG CAP PO SCH (21:48)
[2019-04-29] MEDS: HumaLOG 300 UNITS/3 ML VIAL SC PRN (21:49)
[2019-04-29 21:50] LABS: Bacteria/HPF 3+ HPF (None Seen); Bilirubin Negative (Negative); Blood, Urine Negative (Negative); Clarity Clear (Clear); Glucose, Urine (Dipstick) Greater than 1000 mg/dL (Negative); Leukocyte 75 Leu/uL (Negative); Nitrite Negative (Negative); Protein, Urine (Dipstick) 50 mg/dL (Neg-Trace); RBC/HPF 0-3 HPF (0-3); Squamous Epithelial 0-3 HPF (0-3); Urobilinogen Normal mg/dL (Less than 2)
[2019-04-29 21:52] LABS: Urine Culture Reflex Yes Yes
[2019-04-29 22:59] VITALS: BMI 33.0
[2019-04-30 04:35] LABS: #Eosinphils 0.1 thou/uL (0.0-0.7); #Lymphocytes 2.1 thou/uL (1.20-3.40); #Monocytes 0.6 thou/uL (0.11-0.59); #Neutrophils 2.6 thou/uL (1.40-6.50); %Basophils 0.3 % (0.0-1.0); %Eosinophils 2.3 % (0.0-10.0); %Lymphocytes 38.1 % (21.0-51.0); %Monocytes 11.4 % (0.0-10.0); %Neutrophils 47.8 % (42.0-75.0); Hemoglobin 11.6 g/dL (12.0-16.0); Mean Corpuscular HGB CONC 32.1 g/dL (32.0-36.0); Mean Corpuscular Hemoglobin 30.1 pg (27.0-31.0); Mean Corpuscular Volume 93.6 fL (78.0-98.0); Mean Platelet Volume 8.5 fL (7.4-10.4); Platelet Count 191 thou/uL (130-400); RBC Distribution Width 13.6 % (11.5-14.5); Red Blood Cell (RBC) Count 3.85 mill/uL (4.20-5.40); White Blood Cell (WBC) Count 5.5 thou/uL (4.8-10.8)
[2019-04-30 05:08] LABS: Anion Gap 12 mmol/L (10-20); BUN (Urea Nitrogen) 18 mg/dL (9.8-20.1); Calc. Creatinine Clearance 46 mL/min (70-130); Calcium 8.1 mg/dL (7.8-10.44); Carbon Dioxide 28 mmol/L (23-31); Chloride 98 mmol/L (98-107); Estimated GFR-MDRD 41; Glucose 218 mg/dL (83-110); Potassium 4.3 mmol/L (3.5-5.1); Sodium 134 mmol/L (136-145)
[2019-04-30] MEDS: HYDROcodone/Acetaminophen 10/325 mg Tablet PO SCH ×3 (05:49→23:59)
[2019-04-30] MEDS: Levothyroxine 175 MCG TAB PO SCH (05:51)
[2019-04-30] MEDS: Docusate 100 MG CAP PO SCH ×2 (09:32→20:35)
[2019-04-30] MEDS: Gabapentin 300 MG CAP PO SCH ×3 (09:32→20:36)
[2019-04-30] MEDS: Amiodarone 200 MG TAB PO SCH (09:32)
[2019-04-30] MEDS: Apixaban 5 MG TAB PO SCH ×2 (10:42→20:35)
[2019-04-30] MEDS ORDERED: Magnesium Sulfate 4 GM in Sodium Chloride 0.9% 250 ML 250 ML IVPB SCH (10:45)
[2019-04-30] MEDS ORDERED: Diabetic Tussin 200 MG/10 ML UDCUP PO PRN (11:49)
[2019-04-30] MEDS ORDERED: Ipratropium Bromide 2.5 ml Neb NEB PRN (11:50)
[2019-04-30] MEDS: HumaLOG 300 UNITS/3 ML VIAL SC PRN ×3 (12:58→21:12)
[2019-04-30] MEDS: Acetaminophen 325 MG TAB PO PRN (12:59)
[2019-04-30] MEDS: Cepastat Lozenges 1 LOZ PO PRN (17:55)
[2019-04-30] MEDS: clonazePAM 0.5 MG TABLET PO PRN (19:25)
--- NOTE | 2019-04-30 19:42 | PDOC.HOSPP ---
- Subjective Encounter Date: 04/30/19 Encounter Time: 12:00 Subjective: Patient seen and examined for Afib with RVR. No CP. No new complaints. No overnight events - Objective Vital Signs & Weight: Vital Signs (12 hours) Temp Pulse Pulse Pulse Pulse Resp BP 04/30/19 15:07 97.6 F 62 20 04/30/19 11:38 97.7 F 98 20 04/30/19 10:09 04/30/19 09:45 122 H 125 H 124 H 128/67 04/30/19 07:40 97.6 F 101 H 20 04/30/19 07:35 BP BP BP BP BP BP BP 04/30/19 15:07 103/78 04/30/19 11:38 122/60 04/30/19 10:09 129/72 116/59 L 128/67 04/30/19 09:45 129/72 116/59 L 140/77 04/30/19 07:40 127/58 L 04/30/19 07:35 Pulse Ox 04/30/19 15:07 93 L 04/30/19 11:38 93 L 04/30/19 10:09 04/30/19 09:45 04/30/19 07:40 94 L 04/30/19 07:35 94 L Weight Weight 198 lb 4.8 oz I&O: 04/29/19 04/30/19 05/01/19 06:59 06:59 06:59 Intake Total 228.6 2070 Output Total 300 980 Balance -71.4 1090 Result Diagrams: 04/30/19 04:12 04/30/19 04:12 Additional Labs: Accuchecks 04/30/19 04/30/19 04/30/19 16:52 11:00 05:50 POC Glucose 229 H 280 H 219 H 04/29/19 20:13 POC Glucose 373 H Hospitalist ROS - Medication Medications: Active Medications Generic Name Dose Route Start Last Admin Trade Name Freq PRN Reason Stop Dose Admin Acetaminophen 650 mg 04/29/19 19:14 04/30/19 12:59 Tylenol PO 650 mg Q4H PRN Administration Headache/Fever/Mild Pain (1-3) Hydrocodone Bitart/Acetaminophen 1 tab 04/29/19 22:00 04/30/19 14:56 [place] 10/325 PO 1 tab Q8HR ALEX Administration Amiodarone HCl 100 mg 04/30/19 09:00 04/30/19 09:32 Cordarone PO 100 mg QAM ALEX Administration Amlodipine Besylate 10 mg 04/29/19 21:00 04/29/19 21:38 Norvasc PO 10 mg QPM ALEX Administration Apixaban 5 mg 04/29/19 21:00 04/30/19 10:42 Eliquis PO 5 mg BID ALEX Administration Clonazepam 0.5 mg 04/29/19 20:43 04/30/19 19:25 Klonopin PO 0.5 mg BID PRN Administration Anxiety Docusate Sodium 200 mg 04/29/19 21:00 04/30/19 09:32 Colace PO 200 mg BID ALEX Administration Duloxetine HCl 30 mg 04/29/19 21:00 04/29/19 21:48 Cymbalta PO 30 mg QPM ALEX Administration Gabapentin 300 mg 04/29/19 21:00 04/30/19 14:56 Neurontin PO 300 mg TID ALEX Administration Guaifenesin 200 mg 04/30/19 11:49 04/30/19 13:24 Robitussin Sf PO 200 mg Q4H PRN Administration Cough Diltiazem HCl 125 mg/ Sodium 125 mls @ 5 mls/hr 04/29/19 15:45 04/30/19 13:02 Chloride IVPB 125 mls INF ALEX Administration 5 MG/HR Insulin Human Lispro 0 units 04/29/19 19:10 04/30/19 17:56 Humalog SC 3 unit .MILD SLIDING SCALE PRN Administration Mild Correctional Scale Insulin Human Lispro 0 units 04/29/19 19:10 04/29/19 21:49 Humalog SC 5 unit .BEDTIME SLIDING SC PRN Administration Bedtime Correctional Scale Levothyroxine Sodium 175 mcg 04/30/19 06:00 04/30/19 05:51 Synthroid PO 175 mcg 0600 ALEX Administration Metoprolol Succinate 50 mg 04/30/19 09:00 04/30/19 09:32 Toprol Xl PO 50 mg QAM ALEX Administration Pantoprazole Sodium 40 mg 04/30/19 09:00 04/30/19 09:32 Protonix PO 40 mg QAM ALEX Administration Rosuvastatin Calcium 10 mg 04/29/19 21:00 02/05/20 21:48 Crestor PO 10 mg QPM ALEX Administration Sodium Chloride 10 ml 04/29/19 21:00 04/30/19 09:33 Flush - Normal Saline IVF 10 ml Q12HR ALEX Administration Throat Lozenges 1 adriana 04/30/19 11:49 04/30/19 17:55 Cepastat Lozenges PO 1 adriana Q2H PRN Administration Sore Throat
--- NOTE | 2019-04-30 20:25 | PRG ---
DATE OF SERVICE: 04/30/2019 SUBJECTIVE: An 88-year-old female with atrial fibrillation with recent cardioversion, presented to the emergency room with palpitations. Her workup was consistent with atrial fibrillation with rapid ventricular response. She is currently on Cardizem drip. REVIEW OF SYSTEMS: The patient denies any nausea, vomiting, chest pain, palpitations, or syncope. OBJECTIVE: VITAL SIGNS: Temperature 97.6, pulse 101, respirations 20, blood pressure of 127/58, and O2 saturation 94% on room air. Orthostatic vitals were negative. Intake of 2070, output 980. GENERAL: An 88-year-old female, in no apparent distress. NECK: Supple. No JVD. No carotid bruit. LUNGS: Clear to auscultation bilaterally. No wheezing, rales, or rhonchi. HEART: S1 and S2 present. Irregularly irregular. No rubs or gallops. ABDOMEN: Soft and nontender. Bowel sounds present. EXTREMITIES: No edema or calf tenderness. NEUROLOGY: Grossly nonfocal. PSYCHIATRIC: Alert, awake, and oriented x3. Normal affect. CURRENT MEDICATIONS: Reviewed. The patient is on; 1. Amiodarone. 2. Eliquis. 3. Cardizem drip. She also received Toprol-XL 50 mg earlier. LABORATORY FINDINGS: Magnesium 1.5, sodium 134, and creatinine 1.25. Troponin was negative. Urinalysis showed 11 to 20 wbc's with 3+ bacteria. IMAGING STUDIES: Chest x-ray by my review was negative for acute findings. Telemetry monitoring by my review showed atrial flutter. IMPRESSION: 1. Atrial flutter/fibrillation with rapid ventricular response, on Cardizem drip. 2. Chronic atrial fibrillation with recent cardioversion. 3. Coronary artery disease. 4. Hypertension. 5. Hyperlipidemia. 6. Obesity with a BMI of 33. 7. Chronic kidney disease, stage 3. 8. Urinary tract infection, present on admission. 9. Former smoker. 10. Coronary artery disease. PLAN: The patient will remain on Cardizem drip. Electrophysiology has been consulted. We will start empiric antibiotics for UTI. Continue anticoagulation with Eliquis. Continue amiodarone. Recheck labs in a.m. Replace magnesium. Continue sliding scale. The patient understands the above plan of care. Job ID: [id number]
[2019-04-30] MEDS: cefTRIAXone\\ROCEPHIN 1 GM in Sodium Chloride 0.9% 100 ML IVPB SCH (20:34)
[2019-04-30] MEDS: Amlodipine 10 MG TAB PO SCH (20:35)
[2019-04-30] MEDS: guaiFENesin ER 600 MG TAB PO SCH (20:35)
[2019-04-30] MEDS: Rosuvastatin 10 MG TAB PO SCH (20:35)
[2019-04-30] MEDS: DULoxetine 30 MG CAP PO SCH (20:35)
--- NOTE | 2019-04-30 22:15 | CON ---
DATE OF CONSULTATION: 04/30/2019 REFERRING PHYSICIAN: Dr. Goodman/Dr. Zamorano. HISTORY OF PRESENT ILLNESS: I am seeing Ms. 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 Her problems are: 1. Recurrent atrial arrhythmias. a. Long-term history of atrial fibrillation usually well suppressed with amiodarone. b. Recurrent atrial flutter episodes prompting a SARAY-guided cardioversion on 04/23/2019 with subsequent recurrence. c. Typical isthmus dependent atrial flutter requiring IV diltiazem as well as continue p.o. amiodarone for rate control currently. 2. Anticoagulation with Eliquis. 3. History of aortic stenosis, status post TAVR procedure. 4. History of type 2 diabetes, elevated cholesterol, macular degeneration, and hypertension. ALLERGIES: PENICILLINS AND SULFA. MEDICATIONS: At home included, 1. Metformin. 2. Vitamin A. 3. Rosuvastatin. 4. Pantoprazole. 5. Metoprolol succinate 50 mg in the morning. 6. Gabapentin. 7. Amlodipine. 8. Amiodarone 100 mg daily. 9. Duloxetine. 10. Docusate. 11. Hydrocodone. 12. Apixaban. 13. Clonazepam. SUBJECTIVE: Ms. Rivers is here with recurrent palpitations. She had several weeks of heart fluttering back in end of March, after which, she got admitted. She underwent SARAY-guided cardioversion for what it seems to be atypical atrial flutter. No clots were found, and she left in sinus rhythm, but now she had recurrent palpitations, and she was admitted. The rhythm is still seen to be consistent with typical isthmus dependent atrial flutter based on telemetry and EKG recording. She does not pass out with these. Currently, no acute angina. No PND or orthopnea is noted. No fever, chills, or cough. REVIEW OF SYSTEMS: Rest of 12-point system otherwise unremarkable. PAST MEDICAL HISTORY: As above. SOCIAL HISTORY: She lives with a electrical solderer, but also her . She has a daughter, psychologist, who participate in some of her medical decisions, but she makes her own decisions typically. FAMILY HISTORY: Not contributory. PHYSICAL EXAMINATION: VITAL SIGNS: Blood pressure is 103/78, heart rate 62, respirations 20, and temperature 97.6 degrees Fahrenheit. GENERAL: Alert and oriented woman, in no apparent distress. NECK: Supple. Jugular veins not distended. CHEST: Coarse without crackles. HEART: Sounds are regular to rate and rhythm. No murmur or gallop. ABDOMEN: Benign. Bowel sounds are positive. EXTREMITIES: Lower extremities without edema, clubbing, or cyanosis. DATABASE: EKG is reviewed, reveals typical isthmus dependent atrial flutter of this and previous admission. LABORATORY DATA: White cell count 5.5, hemoglobin 11.6, and platelet count is 191. Sodium 134, potassium 4.3, BUN is 18, and creatinine 1.25. The lower extremity venous Doppler reveals no evidence of deep venous thrombosis. ASSESSMENT AND PLAN: Ms. Rivers is a pleasant 88-year-old woman with a long history of atrial fibrillation, which is usually well suppressed with amiodarone, but for the last two admissions, she had recurrent atrial flutters, which required SARAY-guided cardioversion in last visit but despite of continuation of the amiodarone, the rhythm recurred. We have discussed the mechanism of atrial fibrillation and flutter, both. We discussed the potential benefit from tricuspid isthmus ablation. On the other hand, at this point, I would not advocate pulmonary venous isolation procedure in this elderly somewhat frail lady. The CTI ablation on the other hand is relatively low risk procedure. Therefore, it would be reasonable to proceed with to avoid frequent re-hospitalization. She might still need antiarrhythmic agents after that for suppression of her arrhythmias. Chronic anticoagulation initiated last visit but has had underwent a SARAY at that point, it is reasonable to proceed with the ablation without further SARAY. Risks and benefits of procedure including bleeding, stroke, tamponade, recurrence were discussed. She understands and will discuss with her daughter, likely will proceed tomorrow. Job ID: [id number]
--- NOTE | 2019-05-01 01:05 | PDOC.EVN ---
Event Note - Event Note Event Note: Notified by RN, patient with coarse lung sounds and sats dropped to 80s. Improved once O2 increased to 4L NC. Came to patients bedside, patient appears pale. Had a cold rag on and felt warm to touch. I have checked her temp at bedside and it is elevated at 100.3 Denies any chest pain, does feel short of breath. Coarse lung sounds with congestive cough. Slightly increased work of breathing. Oxygen was off, I placed it back on. Sats eiw164% on 4L NC. HR 60s. BP stable. Tylenol to be given. Duoneb ordered. Stat CXR. Labs including CBC, BMP, BNP and lactic acid. Will obtain BCx. ABG ordered as well. Dr. Vinson aware and in agreement with plan as above. Has advised to add-on Azithromycin, given possible LRTI.
[2019-05-01 01:14] LABS: #Eosinphils 0.2 thou/uL (0.0-0.7); #Lymphocytes 1.2 thou/uL (1.20-3.40); #Monocytes 0.6 thou/uL (0.11-0.59); #Neutrophils 4.7 thou/uL (1.40-6.50); %Basophils 0.2 % (0.0-1.0); %Eosinophils 2.3 % (0.0-10.0); %Lymphocytes 17.9 % (21.0-51.0); %Monocytes 8.7 % (0.0-10.0); %Neutrophils 70.9 % (42.0-75.0); Hemoglobin 11.4 g/dL (12.0-16.0); Mean Corpuscular HGB CONC 31.5 g/dL (32.0-36.0); Mean Corpuscular Hemoglobin 29.2 pg (27.0-31.0); Mean Corpuscular Volume 92.6 fL (78.0-98.0); Mean Platelet Volume 8.7 fL (7.4-10.4); Platelet Count 216 thou/uL (130-400); RBC Distribution Width 13.4 % (11.5-14.5); Red Blood Cell (RBC) Count 3.91 mill/uL (4.20-5.40); White Blood Cell (WBC) Count 6.6 thou/uL (4.8-10.8)
[2019-05-01 01:16] LABS: Actual Bicarbonate (HCO3a) 23.9 mEq/L (22-28); Base Excess (BEa) -0.5 mEq/L (-2.0 to +3.0); CO2 Tension 38.3 mmHg (35.0-45.0); Calcium, Ionized 1.07 mmol/L (1.12-1.30); Carboxyhemoglobin (COHb) 0.7 gm% (0.0-3.0); Hemoglobin (Hb) 12.1 g/dL (12.0-16.0); Potassium - ABG Lab 4.39 mmol/L (3.70-5.30); pH, Arterial 7.41 (7.35-7.45)
[2019-05-01 01:22] LABS: ALV-art Gradient 71.765 (0-20); Puncture Site LRA
[2019-05-01] MEDS: Acetaminophen 325 MG TAB PO PRN (01:25)
[2019-05-01] MEDS ORDERED: Furosemide 20 MG/2 ML VIAL SLOW IVP SCH ×2 (01:30→10:33)
[2019-05-01 01:31] LABS: Anion Gap 12 mmol/L (10-20); BUN (Urea Nitrogen) 17 mg/dL (9.8-20.1); Calc. Creatinine Clearance 51 mL/min (70-130); Calcium 8.1 mg/dL (7.8-10.44); Carbon Dioxide 24 mmol/L (23-31); Chloride 98 mmol/L (98-107); Estimated GFR-MDRD 46; Glucose 223 mg/dL (83-110); Potassium 4.4 mmol/L (3.5-5.1); Sodium 130 mmol/L (136-145)
[2019-05-01] MEDS: Azithromycin 500 MG in Sodium Chloride 0.9% 250 ML 250 ML IVPB SCH (01:40)
[2019-05-01 04:31] LABS: #Lymphocytes 1.2 thou/uL (1.20-3.40); #Monocytes 0.7 thou/uL (0.11-0.59); #Neutrophils 4.7 thou/uL (1.40-6.50); %Basophils 0.4 % (0.0-1.0); %Eosinophils 0.5 % (0.0-10.0); %Lymphocytes 17.9 % (21.0-51.0); %Monocytes 10.8 % (0.0-10.0); %Neutrophils 70.5 % (42.0-75.0); Hemoglobin 11.1 g/dL (12.0-16.0); Mean Corpuscular HGB CONC 32.3 g/dL (32.0-36.0); Mean Corpuscular Volume 92.9 fL (78.0-98.0); Mean Platelet Volume 8.7 fL (7.4-10.4); Platelet Count 208 thou/uL (130-400); RBC Distribution Width 13.4 % (11.5-14.5); Red Blood Cell (RBC) Count 3.69 mill/uL (4.20-5.40); White Blood Cell (WBC) Count 6.7 thou/uL (4.8-10.8)
[2019-05-01 04:50] LABS: Anion Gap 13 mmol/L (10-20); BUN (Urea Nitrogen) 17 mg/dL (9.8-20.1); Calc. Creatinine Clearance 48 mL/min (70-130); Calcium 7.9 mg/dL (7.8-10.44); Carbon Dioxide 23 mmol/L (23-31); Chloride 98 mmol/L (98-107); Estimated GFR-MDRD 43; Glucose 253 mg/dL (83-110); Magnesium 2.3 mg/dL (1.6-2.6); Potassium 4.9 mmol/L (3.5-5.1); Sodium 129 mmol/L (136-145)
[2019-05-01] MEDS: Levothyroxine 175 MCG TAB PO SCH (06:29)
[2019-05-01] MEDS: HYDROcodone/Acetaminophen 10/325 mg Tablet PO SCH ×3 (06:30→21:08)
--- NOTE | 2019-05-01 09:00 | RAD ---
PORTABLE CHEST: DATE: 05/01/2019. PROVIDED CLINICAL HISTORY: Shortness of breath. FINDINGS: Comparison 04/29/2019. The cardiac and mediastinal silhouette is unchanged in appearance. Vascular ca lcification is noted involving the aortic arch. Prominence of the pulmonary vasculature and pulmonar y interstitium are noted. No focal consolidation, pleural fluid, or pneumothorax apparent. IMPRESSION: Findings suggesting congestive failure. POS: OFF
[2019-05-01] MEDS ORDERED: Heparin (Artline) 0 ML ONE (10:27)
[2019-05-01] MEDS ORDERED: Lidocaine 1% (PF) 30 ML VIAL ONE (10:27)
--- NOTE | 2019-05-01 12:40 | PQF ---
DATE: 05-01-19 ATTN: DR. ZOLTAN GONSALES / DR. AIDAN LOU Please exercise your independent, professional judgment in responding to the clarification form. Clinical indicators are provided on the bottom of this form for your review Please check appropriate box(s): [ ] Hyponatremia [ ] Insignificant Lab Values [ ] Associated Diagnosis: [ ] Other diagnosis [ ] Unable to determine In addition, please specify: Present on Admission (POA): [ ] Yes [ ] No [ ] Unable to determine For continuity of documentation, please document condition throughout progress notes and discharge summary. Thank You. CLINICAL INDICATORS - SIGNS / SYMPTOMS/ LABS are present in the medical record: SODIUM: 04-29-19: 132 04-30-19: 134 05-01-19: 130, 129 RISK FACTORS: H&P: 04-29-19: SHE HAS BEEN COMPLAINING OF DYSURIA FOR THE LAST FEW DAYS, SHE HAS BEEN GENERALLY WEAK SINCE COMING HOME FROM THE HOSPITAL TREATMENT: PN DR. KNIGHT 04-30-19: MONITOR ELECTROLYTES AND REPLACE NECESSARY LABS: SODIUM 04-29-19 TO 05-01-19 (This form is maintained as a part of the permanent medical record) 2014 [employer] All Rights Reserved [email or web address] Office: [phone] [facility] HOSPITALJanet
--- NOTE | 2019-05-01 12:59 | PQF ---
DATE: 05-01-19 ATTN: ZOLTAN GONSALES / DR. AIDAN LOU Please exercise your independent, professional judgment in responding to the clarification form. Clinical indicators are provided on the bottom of this form for your review Please check appropriate box(s): HEART FAILURE: A. ACUITY [ ] Acute [ ] Acute on Chronic [ ] Chronic B. TYPE [ ] Systolic / HFrEF [ ] Diastolic / HFpEF [ ] Combined Systolic / Diastolic [ ] Hypertensive Heart and Kidney disease [ ] Hypertensive Heart Disease [ ] Hypertensive Kidney Disease [ ] Other diagnosis [ ] Unable to determine In addition, please specify: Present on Admission (POA): [ ] Yes [ ] No [ ] Unable to determine For continuity of documentation, please document condition throughout progress notes and discharge summary. Thank You. CLINICAL INDICATORS - SIGNS / SYMPTOMS / LABS / RESULTS AND LOCATION IN EMR: ER NOTES: 05-01-19: RR: 24, O2 SAT 94 ON RA, SOB, REPORTS NEW ONSET SOB WITH WALKING, H/O CONGESTIVE HEART FAILURE EVENT NOTE DR. GAXIOLA 05-01-19: COURSE LUNG SOUNDS AND SATS DROPPED TO 80'S. IMPROVED ONCE O2 INCREASED TO 4L NC, DOES FEELS SOB, COARSE LUNG SOUNDS WITH CONGESTIVE COUGH, SLIGHTLY INCREASED WORK OF BREATHING, DUONEB ORDERED, STAT CXR, ABG ORDERED WELL. CXR 05-01-19: IMPRESSION: FINDINGS SUGGESTING CONGESTIVE FAILURE RISKS FACTORS / RESULTS AND LOCATION IN EMR: ER NOTES 04-29-19: ER NOTES: 05-01-19: RR: 24, O2 SAT 94 ON RA, SOB, REPORTS NEW ONSET SOB WITH WALKING, H/O CONGESTIVE HEART FAILURE, A FIB, DM 2, HTN, HYPERLIPIDEMIA TREATMENTS / RESULTS AND LOCATION IN EMR: EVENT NOTE DR. GAXIOLA 05-01-19: DUONEB ORDERED, STAT CXR, ABG ORDERED WELL. MAR: 05-01-19: LASIX 20 IVP (This form is maintained as a part of the permanent medical record) 2014 [employer]. All Rights Reserved [email or web address] [email or web address] Office: [phone] JAE
[2019-05-01] MEDS: Gabapentin 300 MG CAP PO SCH ×3 (13:14→21:08)
[2019-05-01] MEDS: Docusate 100 MG CAP PO SCH ×2 (13:14→21:07)
[2019-05-01] MEDS: guaiFENesin ER 600 MG TAB PO SCH ×2 (13:15→21:08)
[2019-05-01] MEDS: Amiodarone 200 MG TAB PO SCH (13:15)
[2019-05-01] MEDS: Apixaban 5 MG TAB PO SCH ×2 (13:16→21:08)
--- NOTE | 2019-05-01 14:26 | PRG ---
DATE OF SERVICE: SUBJECTIVE: Ms. Rivers seems to be doing fair. There is still some respiratory distress. She continues to be on IV diltiazem with moderate ventricular rate control. OBJECTIVE DATA: VITAL SIGNS: Blood pressure 161/72, heart rate 125, respirations 18, temperature 98.4 degrees Fahrenheit. GENERAL: Alert and oriented elderly woman, in no apparent distress. NECK: Supple. Jugular veins not distended. CHEST: Coarse with wheezes and some crackles. HEART: Sounds are irregularly irregular. S1 and S2 are variable. No murmur or gallop. ABDOMEN: Benign. Bowel sounds positive. EXTREMITIES: Lower extremities without edema, clubbing, or cyanosis. DATABASE: Telemetry strips revealed continued atrial flutter with occasional rapid ventricular rate. LABORATORY DATA: White cell count is 6.7, hemoglobin 11.1, platelet count is 208. Sodium 129, potassium 4.9, BUN is 17, creatinine 1.2. ASSESSMENT AND PLAN: Ms. Rivers is an 88-year-old woman with history of chronic atrial fibrillation previously suppressed with low-dose amiodarone, had presented with recurrent atrial flutter, last visit about 10 days ago, at which point, she underwent a SARAY-guided cardioversion but re-admitted with recurrent atrial flutter. She also had recent pneumonia and her pulmonary status is suboptimal, is receiving broad spectrum antibiotics and diuretic therapy as well. As I discussed with Dr. Zamorano and Dr. Khan at this point, we will hold off on the planned ablation procedure due to her pulmonary status. Hopefully, she will optimize over the weekend if necessary, possibly with help of proposal specialist. If her status improves I would advocate a cavotricuspid isthmus ablation which potentially could eliminate the presenting rhythms. On the other hand, she may not be resilient enough to undergo a full pulmonary venous isolation procedure. Risks and benefits of this discussed with her and the family and hopefully will be able to proceed on Saturday. In the meantime, continue pulmonary treatment, continue anticoagulation and rate control with diltiazem. Job ID: [id number] [facility]
--- NOTE | 2019-05-01 16:46 | PDOC.HOSPP ---
- Subjective Subjective: Seen and examined. Family at bedside. Patient was planned for ablation today, however she is short of breath and very wheezy on physical exam. Patient has been confused, talking about being escorted to [place] by the police. I had a discussion with the patient's daughter and son-in-law at bedside, time was given for questions, all answered in detail. Case discussed with legal billing specialist to will try for ablation on Saturday if for pulmonary status can be improved. - Objective Vital Signs & Weight: Vital Signs (12 hours) Temp Pulse Pulse Pulse Resp BP BP 05/01/19 15:30 99.0 F 82 16 05/01/19 15:04 82 20 05/01/19 11:59 125 H 18 05/01/19 11:33 105 H 18 05/01/19 10:34 102 H 90 148/66 H 138/63 05/01/19 07:40 98.4 F 92 20 BP BP Pulse Ox Pulse Ox Pulse Ox 05/01/19 15:30 105/51 L 93 L 05/01/19 15:04 94 L 05/01/19 11:59 161/72 H 97 05/01/19 11:33 100 05/01/19 10:34 92 L 95 05/01/19 07:40 126/60 95 Weight Weight 203 lb I&O: 04/30/19 05/01/19 05/02/19 06:59 06:59 06:59 Intake Total 228.6 2070 730 Output Total 300 980 350 Balance -71.4 1090 380 Result Diagrams: 05/01/19 04:13 05/01/19 04:13 Additional Labs: Accuchecks 05/01/19 05/01/19 04/30/19 10:53 05:26 21:03 POC Glucose 254 H 283 H 316 H 04/30/19 16:52 POC Glucose 229 H Radiology Reviewed by me: Yes Hospitalist ROS - Review of Systems All other systems reviewed; all pertinent +/- noted in HPI/Subj - Medication Medications: Active Medications Generic Name Dose Route Start Last Admin Trade Name Freq PRN Reason Stop Dose Admin Acetaminophen 650 mg 04/29/19 19:14 05/01/19 01:25 Tylenol PO 650 mg Q4H PRN Administration Headache/Fever/Mild Pain (1-3) Hydrocodone Bitart/Acetaminophen 1 tab 04/29/19 22:00 05/01/19 13:14 [place] 10/325 PO 1 tab Q8HR ALEX Administration Albuterol/Ipratropium 3 ml 05/01/19 11:00 05/01/19 15:04 Duoneb NEB 3 ml [id number] ALEX Administration Amiodarone HCl 100 mg 04/30/19 09:00 05/01/19 13:15 Cordarone PO 100 mg QAM ALEX Administration Amlodipine Besylate 10 mg 04/29/19 21:00 04/30/19 20:35 Norvasc PO 10 mg QPM ALEX Administration Apixaban 5 mg 04/29/19 21:00 05/01/19 13:16 Eliquis PO 5 mg BID ALEX Administration Clonazepam 0.5 mg 04/29/19 20:43 04/30/19 19:25 Klonopin PO 0.5 mg BID PRN Administration Anxiety Docusate Sodium 200 mg 04/29/19 21:00 05/01/19 13:14 Colace PO 200 mg BID ALEX Administration Duloxetine HCl 30 mg 04/29/19 21:00 04/30/19 20:35 Cymbalta PO 30 mg QPM ALEX Administration Gabapentin 300 mg 04/29/19 21:00 05/01/19 15:36 Neurontin PO 300 mg TID ALEX Administration Guaifenesin 600 mg 04/30/19 21:00 05/01/19 13:15 Mucinex PO 600 mg Q12HR ALEX Administration Guaifenesin 200 mg 04/30/19 11:49 04/30/19 13:24 Robitussin Sf PO 200 mg Q4H PRN Administration Cough Ceftriaxone Sodium 1 gm/ 100 mls @ 200 mls/hr 04/30/19 20:00 04/30/19 20:34 Sodium Chloride IVPB 100 mls 2000 ALEX Administration Azithromycin 500 mg/ Sodium 250 mls @ 250 mls/hr 05/01/19 02:00 05/01/19 01: 40 Chloride IVPB 250 mls Q24HR ALEX Administration Insulin Human Lispro 0 units 04/29/19 19:10 04/30/19 17:56 Humalog SC 3 unit .MILD SLIDING SCALE PRN Administration Mild Correctional Scale Insulin Human Lispro 0 units 04/29/19 19:10 04/30/19 21:12 Humalog SC 4 unit .BEDTIME SLIDING SC PRN Administration Bedtime Correctional Scale Ipratropium [place] 2.5 ml 04/30/19 11:50 05/01/19 00:58 Atrovent NEB 2.5 ml Q4H PRN Administration SOB &/or Wheezing Levothyroxine Sodium 175 mcg 04/30/19 06:00 05/01/19 06:29 Synthroid PO 175 mcg 0600 ALEX Administration Metoprolol Succinate 50 mg 04/30/19 09:00 05/01/19 06:30 Toprol Xl PO 50 mg QAM ALEX Administration Pantoprazole Sodium 40 mg 04/30/19 09:00 05/01/19 13:15 Protonix PO 40 mg QAM ALEX Administration Rosuvastatin Calcium 10 mg 04/29/19 21:00 04/30/19 20:35 Crestor PO 10 mg QPM ALEX Administration Sodium Chloride 10 ml 04/29/19 21:00 05/01/19 13:16 Flush - Normal Saline IVF 10 ml Q12HR ALEX Administration Sodium Chloride 10 ml 04/29/19 19:06 05/01/19 01:45 Flush - Normal Saline IVF 10 ml PRN PRN Administration Saline Flush Throat Lozenges 1 adriana 04/30/19 11:49 04/30/19 17:55 Cepastat Lozenges PO 1 adriana Q2H PRN Administration Sore Throat - Exam General Appearance: NAD Eye: PERRL, anicteric sclera ENT: normocephalic atraumatic, moist mucosa Neck: supple, symmetric, no lymphadenopathy Heart: no murmur, no gallops, no rubs, irregular (rapid) Respiratory: no ronchi, normal chest expansion, no tachypnea, rales, wheezes Gastrointestinal: soft, non-tender, non-distended, no guarding, no rigidity Extremities: 1+ LE edema Skin: no lesions, no rashes Neurological: cranial nerve grossly intact, normal sensation to touch, no weakness, no focal deficits Musculoskeletal: generalized weakness Psychiatric: oriented to person, somnolent Hosp A/P (1) UTI (urinary tract infection) Status: Acute (2) Atrial fibrillation status post cardioversion Code(s): I48.91 - UNSPECIFIED ATRIAL FIBRILLATION Status: Acute (3) CAD (coronary artery disease) Code(s): I25.10 - ATHSCL HEART DISEASE OF [place] CORONARY ARTERY W/O ANG PCTRS Status: Acute (4) Diabetes mellitus Code(s): E11.9 - TYPE 2 DIABETES MELLITUS WITHOUT COMPLICATIONS Status: Acute (5) Dysuria Code(s): R30.0 - DYSURIA Status: Acute (6) Essential hypertension Code(s): I10 - ESSENTIAL (PRIMARY) HYPERTENSION Status: Acute (7) Productive cough Code(s): R05 - COUGH Status: Acute (8) Tachycardia with heart rate 121-140 beats per minute Code(s): R00.0 - TACHYCARDIA, UNSPECIFIED Status: Acute - Plan Plan: medical unit with telemetry EP powered bridge specialist consultation, recommendations appreciated pulmonology consultation, recommendations appreciated Diltiazem drip for rate control, goal less than 110 BPM if pulmonary status can be improved she may go for ablation on Saturday add Lasix 20 mg IV now add echocardiogram chest x-ray in the a.m. breathing treatments Q4 hours while awake patient with low grade temperature WBC count normal patient is on antibiotics that would cover for pneumonia patient with urinary tract infection growing Klebsiella pneumoniae, sensitive to current antibiotics a.m. labs continue other home medications as able blood pressure control blood sugar control
[2019-05-01] MEDS: Diltiazem HCl 125 MG, Admixture Fee 1 EACH in Sodium Chloride 0.9% 100 ML IVPB SCH (17:38)
[2019-05-01] MEDS: HumaLOG 300 UNITS/3 ML VIAL SC PRN ×2 (18:16→21:09)
[2019-05-01] MEDS: cefTRIAXone\\ROCEPHIN 1 GM in Sodium Chloride 0.9% 100 ML IVPB SCH (21:06)
[2019-05-01] MEDS: Rosuvastatin 10 MG TAB PO SCH (21:07)
[2019-05-01] MEDS: Amlodipine 10 MG TAB PO SCH (21:07)
[2019-05-01] MEDS: DULoxetine 30 MG CAP PO SCH (21:08)
[2019-05-02] MEDS: Azithromycin 500 MG in Sodium Chloride 0.9% 250 ML 250 ML IVPB SCH (02:54)
[2019-05-02 05:08] LABS: #Eosinphils 0.1 thou/uL (0.0-0.7); #Lymphocytes 1.4 thou/uL (1.20-3.40); #Monocytes 0.5 thou/uL (0.11-0.59); #Neutrophils 2.8 thou/uL (1.40-6.50); %Basophils 0.2 % (0.0-1.0); %Eosinophils 2.8 % (0.0-10.0); %Lymphocytes 29.1 % (21.0-51.0); %Monocytes 9.7 % (0.0-10.0); %Neutrophils 58.3 % (42.0-75.0); Hemoglobin 11.1 g/dL (12.0-16.0); Mean Corpuscular HGB CONC 33.4 g/dL (32.0-36.0); Mean Corpuscular Hemoglobin 31.2 pg (27.0-31.0); Mean Corpuscular Volume 93.4 fL (78.0-98.0); Mean Platelet Volume 8.2 fL (7.4-10.4); Platelet Count 213 thou/uL (130-400); RBC Distribution Width 13.4 % (11.5-14.5); Red Blood Cell (RBC) Count 3.57 mill/uL (4.20-5.40); White Blood Cell (WBC) Count 4.8 thou/uL (4.8-10.8)
[2019-05-02 05:30] LABS: Anion Gap 14 mmol/L (10-20); BUN (Urea Nitrogen) 20 mg/dL (9.8-20.1); Calc. Creatinine Clearance 49 mL/min (70-130); Carbon Dioxide 25 mmol/L (23-31); Chloride 98 mmol/L (98-107); Estimated GFR-MDRD 42; Glucose 220 mg/dL (83-110); Potassium 3.9 mmol/L (3.5-5.1); Sodium 133 mmol/L (136-145)
[2019-05-02] MEDS: Levothyroxine 175 MCG TAB PO SCH (05:38)
[2019-05-02] MEDS: HYDROcodone/Acetaminophen 10/325 mg Tablet PO SCH ×3 (05:38→20:49)
[2019-05-02] MEDS: Amiodarone 200 MG TAB PO SCH (08:50)
[2019-05-02] MEDS: Docusate 100 MG CAP PO SCH ×2 (08:50→20:50)
[2019-05-02] MEDS: Gabapentin 300 MG CAP PO SCH ×3 (08:51→20:48)
[2019-05-02] MEDS: guaiFENesin ER 600 MG TAB PO SCH (08:51)
[2019-05-02] MEDS: Apixaban 5 MG TAB PO SCH ×2 (08:51→20:49)
[2019-05-02] MEDS: Acetaminophen 325 MG TAB PO PRN (08:54)
--- NOTE | 2019-05-02 10:57 | RAD ---
PORTABLE CHEST: HISTORY: Shortness of breath. COMPARISON: Prior day's study. FINDINGS: Heart size appears slightly enlarged. There are atherosclerotic changes of the aorta. There are chr onic-appearing lung changes seen. Pulmonary vascular engorgement appears less pronounced than on the prior examination. IMPRESSION: Cardiomegaly. Decreased prominence to the pulmonary vessels suggests possibly some resolving edema. POS: [facility]
[2019-05-02] MEDS: HumaLOG 300 UNITS/3 ML VIAL SC PRN ×3 (11:10→21:02)
--- NOTE | 2019-05-02 11:25 | PDOC.HOSPP ---
- Subjective Subjective: Seen and examined on telemetry. She is much improved today. Breathing more easily, though still with wheezing and wet sounding lungs. CXR with some improvement in pulmonary edema. Now alert and oriented x3 and better insight into clinical condition. Planned for ablation on saturday with Dr Preciado. - Objective Vital Signs & Weight: Vital Signs (12 hours) Temp Pulse Resp BP Pulse Ox 05/02/19 11:06 78 16 97 05/02/19 11:01 96.7 F L 83 20 151/67 H 96 05/02/19 07:20 97.4 F L 94 21 H 143/60 H 94 L 05/02/19 06:59 87 14 95 05/02/19 03:49 97.7 F 82 16 125/58 L 92 L Weight Weight 203 lb I&O: 05/01/19 05/02/19 05/03/19 06:59 06:59 06:59 Intake Total 2070 1480 Output Total 980 1450 Balance 1090 30 Result Diagrams: 05/02/19 04:47 05/02/19 04:47 Additional Labs: Accuchecks 05/02/19 05/01/19 05/01/19 05:28 20:14 10:53 POC Glucose 239 H 340 H 254 H Radiology Reviewed by me: Yes Hospitalist ROS - Review of Systems All other systems reviewed; all pertinent +/- noted in HPI/Subj - Medication Medications: Active Medications Generic Name Dose Route Start Last Admin Trade Name Freq PRN Reason Stop Dose Admin Acetaminophen 650 mg 04/29/19 19:14 05/02/19 08:54 Tylenol PO 650 mg Q4H PRN Administration Headache/Fever/Mild Pain (1-3) Hydrocodone Bitart/Acetaminophen 1 tab 04/29/19 22:00 05/02/19 05:38 [place] 10/325 PO 1 tab Q8HR ALEX Administration Albuterol/Ipratropium 3 ml 05/01/19 11:00 05/02/19 11:06 Duoneb NEB 3 ml [id number] ALEX Administration Amiodarone HCl 100 mg 04/30/19 09:00 05/02/19 08:50 Cordarone PO 100 mg QAM ALEX Administration Amlodipine Besylate 10 mg 04/29/19 21:00 05/01/19 21:07 Norvasc PO 10 mg QPM ALEX Administration Apixaban 5 mg 04/29/19 21:00 05/02/19 08:51 Eliquis PO 5 mg BID ALEX Administration Clonazepam 0.5 mg 04/29/19 20:43 04/30/19 19:25 Klonopin PO 0.5 mg BID PRN Administration Anxiety Docusate Sodium 200 mg 04/29/19 21:00 05/02/19 08:50 Colace PO 200 mg BID ALEX Administration Duloxetine HCl 30 mg 04/29/19 21:00 05/01/19 21:08 Cymbalta PO 30 mg QPM ALEX Administration Gabapentin 300 mg 04/29/19 21:00 05/02/19 08:51 Neurontin PO 300 mg TID ALEX Administration Guaifenesin 600 mg 04/30/19 21:00 05/02/19 08:51 Mucinex PO 600 mg Q12HR ALEX Administration Guaifenesin 200 mg 04/30/19 11:49 04/30/19 13:24 Robitussin Sf PO 200 mg Q4H PRN Administration Cough Ceftriaxone Sodium 1 gm/ 100 mls @ 200 mls/hr 04/30/19 20:00 05/01/19 21:06 Sodium Chloride IVPB 100 mls 2000 ALEX Administration Azithromycin 500 mg/ Sodium 250 mls @ 250 mls/hr 05/01/19 02:00 05/02/19 02: 54 Chloride IVPB 250 mls Q24HR ALEX Administration Diltiazem HCl 125 mg/ 125 mls @ 5 mls/hr 05/01/19 03:15 05/01/19 17:38 Miscellaneous Medication 1 IVPB 125 mls each/ Sodium Chloride INF ALEX Administration Protocol Insulin Human Lispro 0 units 04/29/19 19:10 05/01/19 21:09 Humalog SC 4 unit .BEDTIME SLIDING SC PRN Administration Bedtime Correctional Scale Insulin Human Lispro 0 units 05/02/19 07:46 05/02/19 11:10 Humalog SC 6 unit .MODERATE SLIDING SC PRN Administration Moderate Correctional Scale Ipratropium [place] 2.5 ml 04/30/19 11:50 05/01/19 00:58 Atrovent NEB 2.5 ml Q4H PRN Administration SOB &/or Wheezing Levothyroxine Sodium 175 mcg 04/30/19 06:00 05/02/19 05:38 Synthroid PO 175 mcg 0600 ALEX Administration Metoprolol Succinate 50 mg 04/30/19 09:00 05/02/19 08:51 Toprol Xl PO 50 mg QAM ALEX Administration Pantoprazole Sodium 40 mg 04/30/19 09:00 05/02/19 08:50 Protonix PO 40 mg QAM ALEX Administration Rosuvastatin Calcium 10 mg 04/29/19 21:00 05/01/19 21:07 Crestor PO 10 mg QPM ALXE Administration Sodium Chloride 10 ml 04/29/19 21:00 05/02/19 08:51 Flush - Normal Saline IVF Not Given Q12HR ALEX Sodium Chloride 10 ml 04/29/19 19:06 05/01/19 01:45 Flush - Normal Saline IVF 10 ml PRN PRN Administration Saline Flush Throat Lozenges 1 adriana 04/30/19 11:49 04/30/19 17:55 Cepastat Lozenges PO 1 adriana Q2H PRN Administration Sore Throat - Exam General Appearance: NAD, awake alert Eye: anicteric sclera ENT: normocephalic atraumatic, moist mucosa Neck: supple, symmetric, no lymphadenopathy Heart: no murmur, no gallops, no rubs, irregular Respiratory: no ronchi, normal chest expansion, no tachypnea, rales, wheezes Gastrointestinal: soft, non-tender, non-distended, no guarding, no rigidity Extremities: 1+ LE edema Skin: no lesions, no rashes Neurological: cranial nerve grossly intact, no focal deficits Musculoskeletal: generalized weakness Psychiatric: normal affect, normal behavior, A&O x 3 Hosp A/P (1) UTI (urinary tract infection) Status: Acute (2) Atrial fibrillation status post cardioversion Code(s): I48.91 - UNSPECIFIED ATRIAL FIBRILLATION Status: Acute (3) CAD (coronary artery disease) Code(s): I25.10 - ATHSCL HEART DISEASE OF [place] CORONARY ARTERY W/O ANG PCTRS Status: Acute (4) Diabetes mellitus Code(s): E11.9 - TYPE 2 DIABETES MELLITUS WITHOUT COMPLICATIONS Status: Acute (5) Dysuria Code(s): R30.0 - DYSURIA Status: Acute (6) Essential hypertension Code(s): I10 - ESSENTIAL (PRIMARY) HYPERTENSION Status: Acute (7) Productive cough Code(s): R05 - COUGH Status: Acute (8) Tachycardia with heart rate 121-140 beats per minute Code(s): R00.0 - TACHYCARDIA, UNSPECIFIED Status: Acute - Plan Plan: medical unit with telemetry EP reception specialist consultation, recommendations appreciated pulmonology consultation, recommendations appreciated Diltiazem drip for rate control, goal less than 110 BPM if pulmonary status can be improved she may go for ablation on Saturday add Lasix 40 mg IV today, eval tomorrow for additional Lasix if needed Echocardiogram pending chest x-ray in the a.m. - Improving pulmonary edema breathing treatments Q4 hours while awake patient with low grade temperature WBC count normal patient is on antibiotics that would cover for pneumonia patient with urinary tract infection growing Klebsiella pneumoniae, sensitive to current antibiotics a.m. labs continue other home medications as able blood pressure control blood sugar control
[2019-05-02] MEDS ORDERED: Furosemide 40 MG/4 ML VIAL SLOW IVP SCH (11:30)
--- NOTE | 2019-05-02 15:37 | CON ---
DATE OF CONSULTATION: HISTORY OF PRESENT ILLNESS: Ivette Rivers is an 88-year-old female, who was readmitted to the hospital on 04/29/2019 with shortness of breath and coughing. She recently underwent cardioversion for SVT. She now states that she has had bronchitis and cold for 12 days. This is persistent that she is coughing mucus that is relatively clear. She is wheezing and she is short of breath. She denies any chills or sweats. PAST MEDICAL HISTORY: Congestive heart failure; atrial fibrillation; coronary artery disease, status post stent; diabetes; high cholesterol; hyperlipidemia; hypertension; and colon cancer. PAST SURGICAL HISTORY: Cholecystectomy, colon resection, and previous colostomy. SOCIAL HISTORY: Tobacco, quit smoking years ago, though she says she did not smoke much. HOME MEDICATIONS: 1. Clonazepam 0.5 twice a day. 2. Metoprolol 50 once a day. 3. Synthroid 175. 4. Norvasc 10. 5. Amlodipine 100. 6. Cymbalta 30. 7. Eliquis 5 twice a day. 8. Catapres p.r.n. 9. Protonix 40. 10. Metformin 500. 11. Hydrocodone. 12. Gabapentin . ALLERGIES: PENICILLIN AND SULFA. REVIEW OF SYSTEMS: Otherwise, unremarkable. PHYSICAL EXAMINATION: VITAL SIGNS: Temperature 98.6, pulse 78, respirations 16, saturations 93% on 3 L, and blood pressure 150/67. CHEST: Diffuse wheezing. CARDIAC: Normal S1 and S2. No gallops. ABDOMEN: No masses. LABORATORY DATA: Creatinine 1.2. White count 4000. ASSESSMENT: 1. Recurrent supraventricular tachycardia, status post cardioversion. 2. Bronchitis, asthmatic. 3. Former smoker. 4. Diabetes. 5. Hypothyroidism. 6. Advanced age. 7. Coronary artery disease. PLAN: I have added low-dose steroids to her present regime. Otherwise, continue empiric antibiotics, PT, supportive care. We will follow. Consultation note, 70 minutes, 50% direct patient care. Job ID: [id number]
[2019-05-02] MEDS: Cepastat Lozenges 1 LOZ PO PRN ×2 (15:38→18:06)
[2019-05-02] MEDS: Budesonide 0.5 MG/2 ML NEB INH SCH (19:22)
--- NOTE | 2019-05-02 20:04 | PDOC.CPN ---
- Subjective Date: 05/02/19 Time: 20:03 Interval history: Doing well. Converted to SR last pm. - Objective Allergies/Adverse Reactions: Allergies Allergy/AdvReac Type Severity Reaction Status Date / Time Penicillins Allergy Verified 04/30/19 03:37 Sulfa (Sulfonamide Allergy Verified 04/30/19 03:37 Antibiotics) Visit Medications: Current Medications Acetaminophen (Tylenol) 650 mg PO Q4H PRN PRN Reason: Headache/Fever/Mild Pain (1-3) Last Admin: 05/02/19 08:54 Dose: 650 mg Acetaminophen (Tylenol) 650 mg ND Q4H PRN PRN Reason: Headache/Fever/Mild Pain (1-3) Hydrocodone Bitart/Acetaminophen ([place] 10/325) 1 tab PO Q8HR ALEX Last Admin: 05/02/19 13:42 Dose: 1 tab Albuterol/Ipratropium (Duoneb) 3 ml NEB [id number] PRN PRN Reason: SOB &/or Wheezing Albuterol/Ipratropium (Duoneb) 3 ml NEB [id number] [facility] Last Admin: 05/02/19 19:20 Dose: 3 ml Amiodarone HCl (Cordarone) 100 mg PO QAM [facility] Last Admin: 05/02/19 08:50 Dose: 100 mg Amlodipine Besylate (Norvasc) 10 mg PO QPM ALEX Last Admin: 05/01/19 21:07 Dose: 10 mg Apixaban (Eliquis) 5 mg PO BID [facility] Last Admin: 05/02/19 08:51 Dose: 5 mg Budesonide (Pulmicort Neb Solution) 0.5 mg INH BID-RT ALEX Last Admin: 05/02/19 19:22 Dose: 0.5 mg Clonazepam (Klonopin) 0.5 mg PO BID PRN PRN Reason: Anxiety Last Admin: 04/30/19 19:25 Dose: 0.5 mg Clonidine (Catapres) 0.1 mg PO BID PRN PRN Reason: Hypertension Dextrose/Water (Dextrose 50%) 25 gm SLOW IVP PRN PRN PRN Reason: Hypoglycemia Docusate Sodium (Colace) 200 mg PO BID [facility] Last Admin: 05/02/19 08:50 Dose: 200 mg Doxycycline Hyclate (Vibramycin) 100 mg PO BID [facility] Stop: 05/09/19 21:01 Duloxetine HCl (Cymbalta) 30 mg PO QPM [facility] Last Admin: 05/01/19 21:08 Dose: 30 mg Gabapentin (Neurontin) 300 mg PO TID [facility] Last Admin: 05/02/19 15:12 Dose: 300 mg Glucagon (Glucagon) 1 mg IM PRN PRN PRN Reason: Hypoglycemia Guaifenesin (Robitussin Sf) 200 mg PO Q4H PRN PRN Reason: Cough Last Admin: 04/30/19 13:24 Dose: 200 mg Guaifenesin/Dextromethorphan (Mucinex Dm) 1 tab PO Q12HR [facility] Dextrose/Water (D5w) 1,000 mls @ 0 mls/hr IV .Q0M PRN PRN Reason: Hypoglycemia Diltiazem HCl 125 mg/Miscellaneous Medication 1 each/ Sodium Chloride 125 mls @ 5 mls/hr IVPB INF ALEX; Protocol Last Admin: 05/01/19 17:38 Dose: 125 mls Insulin Human Lispro (Humalog) 0 units SC .BEDTIME SLIDING SC PRN PRN Reason: Bedtime Correctional Scale Last Admin: 05/01/19 21:09 Dose: 4 unit Insulin Human Lispro (Humalog) 0 units SC .MODERATE SLIDING SC PRN PRN Reason: Moderate Correctional Scale Last Admin: 05/02/19 17:09 Dose: 8 unit Ipratropium [place] (Atrovent) 2.5 ml NEB Q4H PRN PRN Reason: SOB &/or Wheezing Last Admin: 05/01/19 00:58 Dose: 2.5 ml Levothyroxine Sodium (Synthroid) 175 mcg PO 0600 [facility] Last Admin: 05/02/19 05:38 Dose: 175 mcg Methylprednisolone Sodium Succinate (Solu-Medrol) 40 mg IVP BID [facility] Metoprolol Succinate (Toprol Xl) 50 mg PO QAM [facility] Last Admin: 05/02/19 08:51 Dose: 50 mg Pantoprazole Sodium (Protonix) 40 mg PO QAM [facility] Last Admin: 05/02/19 08:50 Dose: 40 mg Rosuvastatin Calcium (Crestor) 10 mg PO QPM [facility] Last Admin: 05/01/19 21:07 Dose: 10 mg Sodium Chloride (Flush - Normal Saline) 10 ml IVF Q12HR [facility] Last Admin: 05/02/19 08:51 Dose: Not Given Sodium Chloride (Flush - Normal Saline) 10 ml IVF PRN PRN PRN Reason: Saline Flush Last Admin: 05/01/19 01:45 Dose: 10 ml Throat Lozenges (Cepastat Lozenges) 1 adriana PO Q2H PRN PRN Reason: Sore Throat Last Admin: 05/02/19 18:06 Dose: 1 adriana Vital Signs & Weight: Vital Signs Temp Pulse Resp BP BP Pulse Ox 05/02/19 19:20 80 12 94 L 05/02/19 19:12 98.7 F 80 16 152/65 H 99 05/02/19 15:10 98.2 F 81 20 155/65 H 94 L 05/02/19 14:33 79 14 94 L 05/02/19 11:06 78 16 97 05/02/19 11:01 96.7 F L 83 20 151/67 H 96 Weight 203 lb - Physical Exam General: alert & oriented x3 Neck: no masses Cardiac: no murmur, regular rate, regular rhythm Lungs: wheezes, bibasilar rales Extremities: no edema - Labs Result Diagrams: 05/02/19 04:47 05/02/19 04:47 Troponin/CKMB Troponin I Less than 0.010 ng/mL (< 0.028) 04/29/19 21:09 - Assessment/Plan Assessment/Plan: Atrial flutter TAVR COPD Pulmonary consulted Added steriods Plan is to proceed with ablation on saturday
[2019-05-02] MEDS: Diltiazem HCl 125 MG, Admixture Fee 1 EACH in Sodium Chloride 0.9% 100 ML IVPB SCH (20:48)
[2019-05-02] MEDS: Rosuvastatin 10 MG TAB PO SCH (20:49)
[2019-05-02] MEDS: DULoxetine 30 MG CAP PO SCH (20:49)
[2019-05-02] MEDS: methylPREDNISolone Sod Succ 40 MG VIAL IVP SCH (20:50)
[2019-05-02] MEDS: guaiFENesin/DM ER PO SCH (20:50)
[2019-05-02] MEDS: Doxycycline 100 MG CAP PO SCH (20:50)
[2019-05-02] MEDS: Amlodipine 10 MG TAB PO SCH (20:50)
[2019-05-03 05:09] LABS: #Lymphocytes 0.4 thou/uL (1.20-3.40); #Monocytes 0.1 thou/uL (0.11-0.59); #Neutrophils 4.3 thou/uL (1.40-6.50); %Basophils 0.3 % (0.0-1.0); %Eosinophils 0.1 % (0.0-10.0); %Lymphocytes 8.1 % (21.0-51.0); %Monocytes 1.4 % (0.0-10.0); %Neutrophils 90.2 % (42.0-75.0); Hemoglobin 10.5 g/dL (12.0-16.0); Mean Corpuscular HGB CONC 33.1 g/dL (32.0-36.0); Mean Corpuscular Volume 93.7 fL (78.0-98.0); Mean Platelet Volume 8.4 fL (7.4-10.4); Platelet Count 225 thou/uL (130-400); RBC Distribution Width 13.3 % (11.5-14.5); Red Blood Cell (RBC) Count 3.39 mill/uL (4.20-5.40); White Blood Cell (WBC) Count 4.7 thou/uL (4.8-10.8)
[2019-05-03 05:31] LABS: Anion Gap 15 mmol/L (10-20); BUN (Urea Nitrogen) 20 mg/dL (9.8-20.1); Calc. Creatinine Clearance 51 mL/min (70-130); Calcium 7.9 mg/dL (7.8-10.44); Carbon Dioxide 25 mmol/L (23-31); Chloride 95 mmol/L (98-107); Estimated GFR-MDRD 44; Glucose 489 mg/dL (83-110); Potassium 5.3 mmol/L (3.5-5.1); Sodium 130 mmol/L (136-145)
[2019-05-03] MEDS: HYDROcodone/Acetaminophen 10/325 mg Tablet PO SCH ×3 (05:38→22:16)
[2019-05-03] MEDS: Levothyroxine 175 MCG TAB PO SCH (05:40)
[2019-05-03] MEDS: HumaLOG 300 UNITS/3 ML VIAL SC PRN ×4 (05:40→19:52)
[2019-05-03] MEDS: Budesonide 0.5 MG/2 ML NEB INH SCH ×2 (06:54→18:24)
[2019-05-03] MEDS: Apixaban 5 MG TAB PO SCH ×2 (08:33→22:52)
[2019-05-03] MEDS: Gabapentin 300 MG CAP PO SCH ×3 (08:33→20:41)
[2019-05-03] MEDS: guaiFENesin/DM ER PO SCH ×2 (08:33→20:45)
[2019-05-03] MEDS: Docusate 100 MG CAP PO SCH ×2 (08:33→20:43)
[2019-05-03] MEDS: Amiodarone 200 MG TAB PO SCH (08:33)
[2019-05-03] MEDS: Doxycycline 100 MG CAP PO SCH ×2 (08:34→20:44)
[2019-05-03] MEDS: methylPREDNISolone Sod Succ 40 MG VIAL IVP SCH (08:34)
[2019-05-03] MEDS: Acetaminophen 325 MG TAB PO PRN (08:38)
--- NOTE | 2019-05-03 09:33 | RAD ---
PORTABLE CHEST: HISTORY: Shortness of breath. COMPARISON: Prior day's exam. FINDINGS: Heart size is enlarged with atherosclerotic change of the aorta. Chronic lung changes are seen. No fo jocelyn infiltrates. IMPRESSION: 1. Cardiomegaly with chronic lung change. 2. Aortic valve stent is noted. POS: [facility]
--- NOTE | 2019-05-03 11:07 | PDOC.CPN ---
- Subjective Date: 05/03/19 Time: 11:05 - Review of Systems General: reports: fatigue Respiratory: reports: cough, congestion Cardiovascular: denies: chest pain, palpitation, edema, paroxysmal nocturnal dyspnea, orthopnea Gastrointestinal: denies: nausea, vomiting, diarrhea, constipation, abd pain, GI bleeding Musculoskeletal: denies: pain, tenderness, stiffness, swelling, arthritis/ arthralgias Neurological: denies: numbness, syncope, seizure, weakness - Objective Allergies/Adverse Reactions: Allergies Allergy/AdvReac Type Severity Reaction Status Date / Time Penicillins Allergy Verified 04/30/19 03:37 Sulfa (Sulfonamide Allergy Verified 04/30/19 03:37 Antibiotics) Visit Medications: Current Medications Acetaminophen (Tylenol) 650 mg PO Q4H PRN PRN Reason: Headache/Fever/Mild Pain (1-3) Last Admin: 05/03/19 08:38 Dose: 650 mg Acetaminophen (Tylenol) 650 mg IN Q4H PRN PRN Reason: Headache/Fever/Mild Pain (1-3) Hydrocodone Bitart/Acetaminophen ([place] 10/325) 1 tab PO Q8HR FOR[facility], [facility] Last Admin: 05/03/19 05:38 Dose: 1 tab Albuterol/Ipratropium (Duoneb) 3 ml NEB [id number] PRN PRN Reason: SOB &/or Wheezing Albuterol/Ipratropium (Duoneb) 3 ml NEB [id number] [facility], [facility]1983 Last Admin: 05/03/19 10:39 Dose: 3 ml Amiodarone HCl (Cordarone) 100 mg PO QAM [facility], [facility] Last Admin: 05/03/19 08:33 Dose: 100 mg Amlodipine Besylate (Norvasc) 10 mg PO QPM [facility], [facility] Last Admin: 05/02/19 20:50 Dose: 10 mg Apixaban (Eliquis) 5 mg PO BID [facility], [facility] Last Admin: 05/03/19 08:33 Dose: 5 mg Budesonide (Pulmicort Neb Solution) 0.5 mg INH BID-RT [facility], [facility] Last Admin: 05/03/19 06:54 Dose: 0.5 mg Clonazepam (Klonopin) 0.5 mg PO BID PRN PRN Reason: Anxiety Last Admin: 04/30/19 19:25 Dose: 0.5 mg Clonidine (Catapres) 0.1 mg PO BID PRN PRN Reason: Hypertension Dextrose/Water (Dextrose 50%) 25 gm SLOW IVP PRN PRN PRN Reason: Hypoglycemia Docusate Sodium (Colace) 200 mg PO BID [facility] Last Admin: 05/03/19 08:33 Dose: 200 mg Doxycycline Hyclate (Vibramycin) 100 mg PO BID [facility] Stop: 05/09/19 21:01 Last Admin: 05/03/19 08:34 Dose: 100 mg Duloxetine HCl (Cymbalta) 30 mg PO QPM [facility] Last Admin: 05/02/19 20:49 Dose: 30 mg Gabapentin (Neurontin) 300 mg PO TID [facility] Last Admin: 05/03/19 08:33 Dose: 300 mg Glucagon (Glucagon) 1 mg IM PRN PRN PRN Reason: Hypoglycemia Guaifenesin (Robitussin Sf) 200 mg PO Q4H PRN PRN Reason: Cough Last Admin: 04/30/19 13:24 Dose: 200 mg Guaifenesin/Dextromethorphan (Mucinex Dm) 1 tab PO Q12HR [facility] Last Admin: 05/03/19 08:33 Dose: 1 tab Dextrose/Water (D5w) 1,000 mls @ 0 mls/hr IV .Q0M PRN PRN Reason: Hypoglycemia Diltiazem HCl 125 mg/Miscellaneous Medication 1 each/ Sodium Chloride 125 mls @ 5 mls/hr IVPB INF FOR[facility], [facility]; Protocol Last Admin: 05/02/19 20:48 Dose: 125 mls Insulin Human Lispro (Humalog) 0 units SC .BEDTIME SLIDING SC PRN PRN Reason: Bedtime Correctional Scale Last Admin: 05/02/19 21:02 Dose: 4 unit Insulin Human Lispro (Humalog) 0 units SC .MODERATE SLIDING SC PRN PRN Reason: Moderate Correctional Scale Last Admin: 05/03/19 05:40 Dose: 10 unit Ipratropium [place] (Atrovent) 2.5 ml NEB Q4H PRN PRN Reason: SOB &/or Wheezing Last Admin: 05/01/19 00:58 Dose: 2.5 ml Levothyroxine Sodium (Synthroid) 175 mcg PO 0600 [facility] Last Admin: 05/03/19 05:40 Dose: 175 mcg Methylprednisolone Sodium Succinate (Solu-Medrol) 40 mg IVP BID [facility], [facility] Last Admin: 05/03/19 08:34 Dose: 40 mg Metoprolol Succinate (Toprol Xl) 50 mg PO QAM [facility], [facility] Last Admin: 05/03/19 08:33 Dose: 50 mg Pantoprazole Sodium (Protonix) 40 mg PO QAM [facility] Last Admin: 05/03/19 08:33 Dose: 40 mg Rosuvastatin Calcium (Crestor) 10 mg PO QPM [facility] Last Admin: 05/02/19 20:49 Dose: 10 mg Sodium Chloride (Flush - Normal Saline) 10 ml IVF Q12HR [facility] Last Admin: 05/03/19 08:35 Dose: 10 ml Sodium Chloride (Flush - Normal Saline) 10 ml IVF PRN PRN PRN Reason: Saline Flush Last Admin: 05/01/19 01:45 Dose: 10 ml Throat Lozenges (Cepastat Lozenges) 1 adriana PO Q2H PRN PRN Reason: Sore Throat Last Admin: 05/02/19 18:06 Dose: 1 adriana Vital Signs & Weight: Vital Signs Temp Pulse Resp BP Pulse Ox 05/03/19 10:39 80 12 05/03/19 08:34 93 L 05/03/19 08:22 98.1 F 92 24 H 130/62 93 L 05/03/19 06:55 84 12 05/03/19 06:54 84 12 05/03/19 03:51 98.3 F 92 14 140/67 92 L Weight 203 lb - Physical Exam General: alert & oriented x3, appears well HEENT: mucus membranes moist Neck: supple neck Cardiac: other (regular) Lungs: no rales, decreased breath sounds Neuro: grossly intact Abdomen: soft, non-tender Extremities: no cyanosis - Labs Result Diagrams: 05/03/19 04:47 05/03/19 04:47 Troponin/CKMB Troponin I Less than 0.010 ng/mL (< 0.028) 04/29/19 21:09 - Assessment/Plan Assessment/Plan: 1. Recurrent AFlutter s/p recent SARAY/DCCV 2. COPD 3. PNA Stable on cardizem. Awaiting potential RFA in AM.
--- NOTE | 2019-05-03 13:49 | PRG ---
DATE OF SERVICE: 05/03/2019 SUBJECTIVE: Ms. Rivers is doing better. She says she is less short of breath, less coughing. She had a chest x-ray taken, which showed minimal amount of cardiomegaly, chronic changes. OBJECTIVE: VITAL SIGNS: Saturations are 93% on room air, respiratory rate 20, temperature 98, pulse 92, blood pressure 110/65. CHEST: Decreased breath sounds. No wheezing. CARDIAC: Normal S1, S2. No gallops. ABDOMEN: No masses. ASSESSMENT: Recurrence of supraventricular tachyarrhythmias, conversion; asthmatic bronchitis; former smoker. PLAN: She is much better. We will continue antibiotics, switch over to p.o. medications and steroids. Job ID: [id number]
[2019-05-03] MEDS ORDERED: Dextrose 5% in Water 1,000 ML IV PRN (18:21)
[2019-05-03] MEDS ORDERED: Dextrose 50% Abboject 50 ML SYRINGE SLOW IVP PRN (18:21)
--- NOTE | 2019-05-03 18:46 | PDOC.HOSPP ---
- Subjective Encounter Date: 05/03/19 Encounter Time: 18:48 Subjective: No overnight events. She is off the cardiazem drip this AM. No sob, cp, palpiations, or associated sxs. - Objective Vital Signs & Weight: Vital Signs (12 hours) Temp Pulse Resp BP Pulse Ox 05/03/19 15:17 97.4 F L 97 18 148/67 H 94 L 05/03/19 14:39 84 12 05/03/19 12:20 98.5 F 92 20 139/65 93 L 05/03/19 10:39 80 12 05/03/19 08:34 93 L 05/03/19 08:22 98.1 F 92 24 H 130/62 93 L 05/03/19 06:55 84 12 05/03/19 06:54 84 12 Weight Weight 203 lb I&O: 05/02/19 05/03/19 05/04/19 06:59 06:59 06:59 Intake Total 1480 1140 Output Total 1450 1600 500 Balance 30 -460 -500 Result Diagrams: 05/03/19 04:47 05/03/19 04:47 Additional Labs: Accuchecks 05/03/19 05/03/19 05/02/19 11:16 05:27 20:14 POC Glucose 448 H 484 H 310 H Hospitalist ROS - Review of Systems All other systems reviewed; all pertinent +/- noted in HPI/Subj - Medication Medications: Active Medications Generic Name Dose Route Start Last Admin Trade Name Freq PRN Reason Stop Dose Admin Acetaminophen 650 mg 04/29/19 19:14 05/03/19 08:38 Tylenol PO 650 mg Q4H PRN Administration Headache/Fever/Mild Pain (1-3) Hydrocodone Bitart/Acetaminophen 1 tab 04/29/19 22:00 05/03/19 14:30 [place] 10/325 PO 1 tab Q8HR ALEX Administration Albuterol/Ipratropium 3 ml 05/01/19 11:00 05/03/19 18:25 Duoneb NEB 3 ml [id number] ALEX Administration Amiodarone HCl 100 mg 04/30/19 09:00 05/03/19 08:33 Cordarone PO 100 mg QAM ALEX Administration Amlodipine Besylate 10 mg 04/29/19 21:00 05/02/19 20:50 Norvasc PO 10 mg QPM ALEX Administration Apixaban 5 mg 04/29/19 21:00 05/03/19 08:33 Eliquis PO 5 mg BID ALEX Administration Budesonide 0.5 mg 05/02/19 18:30 05/03/19 18:24 Pulmicort Neb Solution INH 0.5 mg BID-RT ALEX Administration Clonazepam 0.5 mg 04/29/19 20:43 04/30/19 19:25 Klonopin PO 0.5 mg BID PRN Administration Anxiety Docusate Sodium 200 mg 04/29/19 21:00 05/03/19 08:33 Colace PO 200 mg BID ALEX Administration Doxycycline Hyclate 100 mg 05/02/19 21:00 05/03/19 08:34 Vibramycin PO 05/09/19 21:01 100 mg BID ALEX Administration Duloxetine HCl 30 mg 04/29/19 21:00 05/02/19 20:49 Cymbalta PO 30 mg QPM ALEX Administration Gabapentin 300 mg 04/29/19 21:00 05/03/19 14:30 Neurontin PO 300 mg TID ALEX Administration Guaifenesin 200 mg 04/30/19 11:49 04/30/19 13:24 Robitussin Sf PO 200 mg Q4H PRN Administration Cough Guaifenesin/Dextromethorphan 1 tab 05/02/19 21:00 05/03/19 08:33 Mucinex Dm PO 1 tab Q12HR ALEX Administration Insulin Human Lispro 0 units 04/29/19 19:10 05/02/19 21:02 Humalog SC 4 unit .BEDTIME SLIDING SC PRN Administration Bedtime Correctional Scale Insulin Human Lispro 0 units 05/03/19 11:50 05/03/19 17:05 Humalog SC 13 unit .AGGRESSIVE SLIDING PRN Administration AGGRESSIVE SLIDING SCALE Protocol Ipratropium [place] 2.5 ml 04/30/19 11:50 05/01/19 00:58 Atrovent NEB 2.5 ml Q4H PRN Administration SOB &/or Wheezing Levothyroxine Sodium 175 mcg 04/30/19 06:00 05/03/19 05:40 Synthroid PO 175 mcg 0600 ALEX Administration Metoprolol Succinate 50 mg 04/30/19 09:00 05/03/19 08:33 Toprol Xl PO 50 mg QAM ALEX Administration Pantoprazole Sodium 40 mg 04/30/19 09:00 05/03/19 08:33 Protonix PO 40 mg QAM ALEX Administration Rosuvastatin Calcium 10 mg 04/29/19 21:00 05/02/19 20:49 Crestor PO 10 mg QPM ALEX Administration Sodium Chloride 10 ml 04/29/19 21:00 05/03/19 08:35 Flush - Normal Saline IVF 10 ml Q12HR ALEX Administration Sodium Chloride 10 ml 04/29/19 19:06 05/01/19 01:45 Flush - Normal Saline IVF 10 ml PRN PRN Administration Saline Flush Throat Lozenges 1 adriana 04/30/19 11:49 05/02/19 18:06 Cepastat Lozenges PO 1 adriana Q2H PRN Administration Sore Throat - Exam General Appearance: NAD, awake alert Eye: PERRL, anicteric sclera ENT: normocephalic atraumatic, no oropharyngeal lesions, moist mucosa Neck: supple, symmetric, no JVD, no thyromegaly, no lymphadenopathy, no carotid bruit Heart: RRR, no murmur, no gallops, no rubs, normal peripheral pulses Respiratory: CTAB, no wheezes, no rales, no ronchi, normal chest expansion, no tachypnea, normal percussion Gastrointestinal: soft, non-tender, non-distended, normal bowel sounds, no palpable masses, no hepatomegaly, no splenomegaly, no bruit Extremities: no cyanosis, no clubbing, no edema Skin: normal turgor, no lesions, no rashes Neurological: cranial nerve grossly intact, normal sensation to touch, no weakness, no focal deficits, no new deficit Musculoskeletal: normal tone, normal strength, no muscle wasting Psychiatric: normal affect, normal behavior, A&O x 3 Hosp A/P (1) Atrial fibrillation status post cardioversion Code(s): I48.91 - UNSPECIFIED ATRIAL FIBRILLATION Status: Acute (2) Tachycardia with heart rate 121-140 beats per minute Code(s): R00.0 - TACHYCARDIA, UNSPECIFIED Status: Acute (3) Asthmatic bronchitis Code(s): J45.909 - UNSPECIFIED ASTHMA, UNCOMPLICATED Status: Acute (4) CAD (coronary artery disease) Code(s): I25.10 - ATHSCL HEART DISEASE OF [place] CORONARY ARTERY W/O ANG PCTRS Status: Acute (5) Diabetes mellitus Code(s): E11.9 - TYPE 2 DIABETES MELLITUS WITHOUT COMPLICATIONS Status: Acute (6) Essential hypertension Code(s): I10 - ESSENTIAL (PRIMARY) HYPERTENSION Status: Acute - Plan Off diltiazem drip, continue amiodarone as per cardio reccs Continue Eliquis Continue budesonide and doxycycline as per [place] recommendations as well as 20 mg of prednisone Continue home medication Blood sugars out of control, start 20 units of Lantus at bedtime and aggressive medium dose correctional scale We will obtain an A1c Disposition: Pending RFA with EP tomorrow.
[2019-05-03 19:06] LABS: Hemoglobin A1c 10.4 % (4.0-6.0)
[2019-05-03 19:20] LABS: Glucose 620 mg/dL (83-110)
[2019-05-03] MEDS: Amlodipine 10 MG TAB PO SCH (20:41)
[2019-05-03] MEDS: Insulin Glargine 20 UNITS in Pre-Filled Syringe 1 EACH SC SCH (20:41)
[2019-05-03] MEDS: DULoxetine 30 MG CAP PO SCH (20:43)
[2019-05-03] MEDS: Rosuvastatin 10 MG TAB PO SCH (22:52)
[2019-05-04] MEDS: Acetaminophen 325 MG TAB PO PRN (01:19)
[2019-05-04 04:46] LABS: Anion Gap 13 mmol/L (10-20); BUN (Urea Nitrogen) 22 mg/dL (9.8-20.1); Calc. Creatinine Clearance 49 mL/min (70-130); Calcium 8.8 mg/dL (7.8-10.44); Carbon Dioxide 26 mmol/L (23-31); Chloride 98 mmol/L (98-107); Estimated GFR-MDRD 43; Glucose 411 mg/dL (83-110); Potassium 4.4 mmol/L (3.5-5.1); Sodium 133 mmol/L (136-145)
[2019-05-04] MEDS: HYDROcodone/Acetaminophen 10/325 mg Tablet PO SCH ×3 (05:27→22:53)
[2019-05-04] MEDS: Levothyroxine 175 MCG TAB PO SCH (05:28)
[2019-05-04] MEDS: Budesonide 0.5 MG/2 ML NEB INH SCH (07:13)
[2019-05-04] MEDS: predniSONE 20 MG TAB PO SCH (08:57)
[2019-05-04] MEDS: Amiodarone 200 MG TAB PO SCH (08:57)
[2019-05-04] MEDS: Apixaban 5 MG TAB PO SCH ×2 (08:57→22:54)
[2019-05-04] MEDS: guaiFENesin/DM ER PO SCH ×2 (08:58→22:53)
[2019-05-04] MEDS: Doxycycline 100 MG CAP PO SCH ×2 (08:58→22:51)
[2019-05-04] MEDS: Gabapentin 300 MG CAP PO SCH ×3 (08:58→22:54)
[2019-05-04] MEDS: clonazePAM 0.5 MG TABLET PO PRN (09:03)
[2019-05-04] MEDS: Docusate 100 MG CAP PO SCH ×2 (09:10→22:52)
[2019-05-04] MEDS: HumaLOG 300 UNITS/3 ML VIAL SC PRN (09:45)
--- NOTE | 2019-05-04 09:53 | PRG ---
DATE OF SERVICE: 05/04/2019 SUBJECTIVE: This morning, she is awake, alert, and responsive. She is better. Less cough, less shortness of breath. OBJECTIVE: VITAL SIGNS: Saturations are 96% on room air, temperature 98, pulse 97, respiratory rate 18, blood pressure 174/75. CHEST: No wheezing or crackles. CARDIAC: Normal S1, S2. No gallops. ABDOMEN: No masses. IMPRESSION: Status post atrial flutter, chronic obstructive pulmonary disease. PLAN: Stopping neb treatments, stopping steroids. Blood sugar is markedly elevated. She is going for EP evaluation, ablation today. We will follow. If she starts wheezing again, we will probably initiate Dulera. Job ID: [id number]
[2019-05-04] MEDS ORDERED: PROPOFOL 200 MG/20 ML VIAL ONE (14:31)
[2019-05-04] MEDS ORDERED: Heparin (Artline) 1,000 ML ONE (15:07)
[2019-05-04] MEDS ORDERED: Lidocaine 1% (PF) 30 ML VIAL ONE (15:07)
[2019-05-04] MEDS ORDERED: Heparin 10,000 UNITS/1 ML VIAL ONE (15:16)
--- NOTE | 2019-05-04 15:41 | PDOC.HOSPP ---
- Subjective Encounter Date: 05/04/19 Encounter Time: 08:00 Subjective: Pt seen for followup re: a. fib. No complaints today. Waiting for ablation. - Objective Vital Signs & Weight: Vital Signs (12 hours) Temp Pulse Resp BP Pulse Ox 05/04/19 11:39 98.0 F 82 24 H 144/63 H 95 05/04/19 07:54 98.2 F 97 18 174/75 H 96 05/04/19 07:13 90 12 Weight Weight 203 lb I&O: 05/03/19 05/04/19 05/05/19 06:59 06:59 06:59 Intake Total 1140 Output Total 1600 500 Balance -460 -500 Result Diagrams: 05/03/19 04:47 05/04/19 04:16 Additional Labs: Accuchecks 05/04/19 05/04/19 05/04/19 11:20 05:36 00:37 POC Glucose 271 H 397 H 434 H 05/03/19 05/03/19 05/03/19 18:16 18:14 16:54 POC Glucose Greater than 550 H* Greater than 550 H* Greater than 550 H* 05/01/19 05/01/19 17:18 17:17 POC Glucose 377 H 359 H Labs and MARs reviewed by me EKG Reviewed by me: Yes (Tele: NSR) Hospitalist ROS - Review of Systems Cardiovascular: denies: chest pain, palpitations, orthopnea, paroxysmal noc. dyspnea, edema, light headedness Gastrointestinal: denies: nausea, vomiting, abdominal pain, diarrhea, constipation, melena, hematochezia - Medication Medications: Active Medications Generic Name Dose Route Start Last Admin Trade Name Manuelq PRN Reason Stop Dose Admin Acetaminophen 650 mg 04/29/19 19:14 05/04/19 01:19 Tylenol PO 650 mg Q4H PRN Administration Headache/Fever/Mild Pain (1-3) Hydrocodone Bitart/Acetaminophen 1 tab 04/29/19 22:00 05/04/19 14:25 [place] 10/325 PO 1 tab Q8HR ALEX Administration Amiodarone HCl 100 mg 04/30/19 09:00 05/04/19 08:57 Cordarone PO 100 mg QAM ALEX Administration Amlodipine Besylate 10 mg 04/29/19 21:00 05/03/19 20:41 Norvasc PO 10 mg QPM ALEX Administration Apixaban 5 mg 04/29/19 21:00 05/04/19 08:57 Eliquis PO 5 mg BID ALEX Administration Clonazepam 0.5 mg 04/29/19 20:43 05/04/19 09:03 Klonopin PO 0.5 mg BID PRN Administration Anxiety Docusate Sodium 200 mg 04/29/19 21:00 05/04/19 09:10 Colace PO Not Given BID ALEX Doxycycline Hyclate 100 mg 05/02/19 21:00 05/04/19 08:58 Vibramycin PO 05/09/19 21:01 100 mg BID ALEX Administration Duloxetine HCl 30 mg 04/29/19 21:00 05/03/19 20:43 Cymbalta PO 30 mg QPM ALEX Administration Gabapentin 300 mg 04/29/19 21:00 05/04/19 14:25 Neurontin PO 300 mg TID ALEX Administration Guaifenesin 200 mg 04/30/19 11:49 04/30/19 13:24 Robitussin Sf PO 200 mg Q4H PRN Administration Cough Guaifenesin/Dextromethorphan 1 tab 05/02/19 21:00 05/04/19 08:58 Mucinex Dm PO 1 tab Q12HR ALEX Administration Insulin Glargine 20 units/ 0.2 mls @ 0 mls/hr 05/03/19 21:00 05/03/19 20:41 Miscellaneous Medication SC 0.2 mls HS ALEX Administration Insulin Human Lispro 0 units 04/29/19 19:10 05/02/19 21:02 Humalog SC 4 unit .BEDTIME SLIDING SC PRN Administration Bedtime Correctional Scale Insulin Human Lispro 0 units 05/03/19 11:50 05/04/19 09:45 Humalog SC 13 unit .AGGRESSIVE SLIDING PRN Administration AGGRESSIVE SLIDING SCALE Protocol Levothyroxine Sodium 175 mcg 04/30/19 06:00 05/04/19 05:28 Synthroid PO 175 mcg 0600 ALEX Administration Metoprolol Succinate 50 mg 04/30/19 09:00 05/04/19 08:58 Toprol Xl PO 50 mg QAM ALEX Administration Pantoprazole Sodium 40 mg 04/30/19 09:00 05/04/19 08:58 Protonix PO 40 mg QAM ALEX Administration Prednisone 20 mg 05/04/19 08:00 05/04/19 08:57 Prednisone PO 20 mg QAM-WM ALEX Administration Rosuvastatin Calcium 10 mg 04/29/19 21:00 05/03/19 22:52 Crestor PO Not Given QPM ALEX Sodium Chloride 10 ml 04/29/19 21:00 05/04/19 08:59 Flush - Normal Saline IVF 10 ml Q12HR ALEX Administration Sodium Chloride 10 ml 04/29/19 19:06 05/01/19 01:45 Flush - Normal Saline IVF 10 ml PRN PRN Administration Saline Flush Throat Lozenges 1 adriana 04/30/19 11:49 05/02/19 18:06 Cepastat Lozenges PO 1 adriana Q2H PRN Administration Sore Throat - Exam General - other findings: Obese Eye: anicteric sclera ENT: moist mucosa Neck: supple Heart: irregular Respiratory: CTAB Gastrointestinal: soft, non-tender Gastrointestinal - other findings: ostomy Skin: no rashes Psychiatric: normal affect, normal behavior Hosp A/P - Plan - Assessment (1) Atrial fibrillation Code(s): I48.91 - UNSPECIFIED ATRIAL FIBRILLATION Status: Acute (2) Asthmatic bronchitis Code(s): J45.909 - UNSPECIFIED ASTHMA, UNCOMPLICATED Status: Acute (3) CAD (coronary artery disease) Code(s): I25.10 - ATHSCL HEART DISEASE OF [place] CORONARY ARTERY W/O ANG PCTRS Status: Chronic (4) Diabetes mellitus Code(s): E11.9 - TYPE 2 DIABETES MELLITUS WITHOUT COMPLICATIONS Status: Chronic (5) Essential hypertension Code(s): I10 - ESSENTIAL (PRIMARY) HYPERTENSION Status: Chronic - Plan Pt to have ablation today Continue Eliquis and amiodarone. Continue budesonide and doxycycline. Prednisone discontinued. Lantus started for high blood sugars.
[2019-05-04] MEDS ORDERED: DOPamine 400 MG/D5W 250 ML 250 ML ONE (16:03)
[2019-05-04] MEDS ORDERED: Sodium Chloride 0.9% 1,000 ML IV SCH (18:45)
[2019-05-04] MEDS: Rosuvastatin 10 MG TAB PO SCH (22:52)
[2019-05-04] MEDS: Amlodipine 10 MG TAB PO SCH (22:52)
[2019-05-04] MEDS: DULoxetine 30 MG CAP PO SCH (22:52)
[2019-05-04] MEDS: Insulin Glargine 20 UNITS in Pre-Filled Syringe 1 EACH SC SCH (22:54)
--- NOTE | 2019-05-04 23:28 | OP ---
DATE OF PROCEDURE: 05/04/2019 PROCEDURE PERFORMED: Electrophysiology study and radiofrequency ablation. ADDITIONAL REFERRING PHYSICIAN: Gregg Zamorano MD REASON FOR PROCEDURE: Mrs. Rivers is an 88-year-old woman with prior history of atrial fibrillation, which was well suppressed with amiodarone in the past, but now she is returning repeatedly with sustained typical appearing isthmus-dependent morphology type of flutter. She has converted back to sinus rhythm, has been on anticoagulants. She is here for EP study and radiofrequency ablation. DESCRIPTION OF PROCEDURE: The patient received deep sedation by Anesthesia specialist. After adequate level of sedation achieved, the right femoral venous area was prepped, draped, and anesthetized using subcutaneous lidocaine. Under ultrasound guidance, the right femoral vein was cannulated x2. Two 8-[place] short sheath was introduced through which a ThermoCool SFST catheter was advanced to the right atrium and 3D map of the right atrium, His bundle, CS, and isthmus area was obtained. Also a decapolar catheter was advanced to the coronary sinus. Right atrium, right ventricle pacing mapping and recording was performed in each location, including pacing the left atrium via the CS. The following findings were noted: Baseline rhythm was sinus rhythm with RR interval 675 milliseconds, ND 191 milliseconds, QRS 105 milliseconds, QT 460 milliseconds, AH 142 milliseconds, HV 59 milliseconds. Sinus node recovery time is 1282 milliseconds, corrected about 400 milliseconds. The atrial ERP was 600/300 milliseconds. No VA conduction was noted with RV pacing. AV Wenckebach cycle length was 420 milliseconds. With atrial access to my testing, dual AV sumi physiology was noted, but no echo beats were seen and no AVNRT was inducible. With burst atrial pacing, we were able to induce atrial flutter revealing to be typical isthmus dependent. Pacing maneuvers terminated the atrial flutter. Due to the typical isthmus dependent morphology and activation pattern, decision was made to perform cavotricuspid isthmus ablation. Proximal CS pacing initiated and we delivered a total of 17 minutes of radiofrequency at 40 ornelas at the cavotricuspid isthmus. The aorta prolonged the cavotricuspid isthmus to 130 milliseconds. Some posterior conduction was noted. At the end of the case, burst atrial pacing maneuvers did not re-induce atrial flutter, but atrial fibrillation was induced, which eventually was cardioverted back to sinus rhythm. CONCLUSION: 1. Inducible typical-appearing isthmus-dependent morphology type of flutter. 2. Successful cavotricuspid isthmus ablation. 3. Borderline sinus sumi normal, AV sumi and His-Purkinje function noted. 4. AV sumi physiology without echo beats or AVNRT. 5. No evidence of accessory pathway. 6. Successful cavotricuspid isthmus ablation achieving cavotricuspid isthmus block with no inducible atrial flutter noted. 7. Inducible atrial fibrillation at the end of the case. PLAN: Continue amiodarone versus Multaq and continue Eliquis therapy. Job ID: [id number]
[2019-05-05] MEDS: HYDROcodone/Acetaminophen 10/325 mg Tablet PO SCH ×2 (05:58→13:56)
[2019-05-05] MEDS: Levothyroxine 175 MCG TAB PO SCH (05:58)
[2019-05-05] MEDS: predniSONE 20 MG TAB PO SCH (09:01)
[2019-05-05] MEDS: Amiodarone 200 MG TAB PO SCH (09:02)
[2019-05-05] MEDS: Apixaban 5 MG TAB PO SCH (09:02)
[2019-05-05] MEDS: guaiFENesin/DM ER PO SCH (09:03)
[2019-05-05] MEDS: Gabapentin 300 MG CAP PO SCH (09:03)
[2019-05-05] MEDS: Doxycycline 100 MG CAP PO SCH (09:03)
[2019-05-05] MEDS: Docusate 100 MG CAP PO SCH (09:03)
[2019-05-05] MEDS: HumaLOG 300 UNITS/3 ML VIAL SC PRN ×2 (09:08→13:25)
--- NOTE | 2019-05-05 09:14 | PRG ---
DATE OF SERVICE: 05/05/2019 SUBJECTIVE: Ms. Rivers is since doing well one day after her cavotricuspid isthmus ablation. OBJECTIVE: VITAL SIGNS: Blood pressure 171/72, heart rate 76, respirations 18, and temperature 97.9 degrees Fahrenheit. GENERAL: Alert and oriented elderly woman, in no apparent distress. NECK: Supple. Jugular veins not distended. CHEST: Coarse. No crackles. HEART: Heart sounds are regular to rate and rhythm. No murmur or gallop. 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 Right groin catheter insertion sites without hematoma reaction. LOWER EXTREMITIES: Without edema, clubbing or cyanosis. DIAGNOSTIC DATA: Telemetry strips reviewed revealing continued sinus rhythm. ASSESSMENT AND PLAN: Ms. Rivers is a very pleasant 88-year-old woman with history of recurrent atrial arrhythmias, longstanding history of atrial fibrillation, suppressed with low-dose amiodarone. She has been readmitted with recurrent atrial flutter, which prompted initially a SARAY-guided cardioversion on last visit, and on this admission, she underwent cavotricuspid isthmus ablation. She still has inducible atrial fibrillation, likely will require amiodarone suppression long-term. Alternatively, Multaq therapy could be contemplated, which could be considered as an outpatient. For now, as I discussed with Dr. Zamorano, it would be reasonable to continue low-dose amiodarone and continue anticoagulation as well. Her pulmonary status is improving, but still will likely require further management. At this point, she is stable from EP standpoint. I would sign off. Please call if any further questions. Job ID: [id number]
--- NOTE | 2019-05-05 10:35 | PRG ---
DATE OF SERVICE: 05/05/2019 SUBJECTIVE: This morning, she is better, less coughing, less shortness of breath. She is relatively clear. OBJECTIVE: VITAL SIGNS: Temperature 97.9, pulse 76, respiratory rate 18, sats 92% on room air, blood pressure 171/72. CHEST: Minimal wheezing. CARDIAC: Normal S1, S2. ABDOMEN: Soft, no masses. IMPRESSION AND PLAN: 1. Asthmatic bronchitis, stable. 2. Rhinitis. Taper prednisone. Supportive care, PT. Job ID: [id number]
--- NOTE | 2019-05-05 13:36 | PDOC.CPN ---
- Subjective Date: 05/05/19 Time: 13:34 Interval history: Doing well. S/p ablation of flutter. Residual PAF. On eliquis. - Objective Allergies/Adverse Reactions: Allergies Allergy/AdvReac Type Severity Reaction Status Date / Time Penicillins Allergy Verified 04/30/19 03:37 Sulfa (Sulfonamide Allergy Verified 04/30/19 03:37 Antibiotics) Visit Medications: Current Medications Acetaminophen (Tylenol) 650 mg PO Q4H PRN PRN Reason: Headache/Fever/Mild Pain (1-3) Last Admin: 05/04/19 01:19 Dose: 650 mg Acetaminophen (Tylenol) 650 mg [place] Q4H PRN PRN Reason: Headache/Fever/Mild Pain (1-3) Hydrocodone Bitart/Acetaminophen (Locke 10/325) 1 tab PO Q8HR [facility] Last Admin: 05/05/19 05:58 Dose: 1 tab Amiodarone HCl (Cordarone) 100 mg PO QAM [facility] Last Admin: 05/05/19 09:02 Dose: 100 mg Amlodipine Besylate (Norvasc) 10 mg PO QPM [facility] Last Admin: 05/04/19 22:52 Dose: 10 mg Apixaban (Eliquis) 5 mg PO BID [facility] Last Admin: 05/05/19 09:02 Dose: 5 mg Clonazepam (Klonopin) 0.5 mg PO BID PRN PRN Reason: Anxiety Last Admin: 05/04/19 09:03 Dose: 0.5 mg Clonidine (Catapres) 0.1 mg PO BID PRN PRN Reason: Hypertension Dextrose/Water (Dextrose 50%) 25 gm SLOW IVP PRN PRN PRN Reason: Hypoglycemia Docusate Sodium (Colace) 200 mg PO BID [facility] Last Admin: 05/05/19 09:03 Dose: Not Given Doxycycline Hyclate (Vibramycin) 100 mg PO BID [facility] Stop: 05/09/19 21:01 Last Admin: 05/05/19 09:03 Dose: 100 mg Duloxetine HCl (Cymbalta) 30 mg PO QPM [facility] Last Admin: 05/04/19 22:52 Dose: 30 mg Fluticasone Propionate (Flonase Nasal [place]) 0 gm NASAL DAILY [facility] Gabapentin (Neurontin) 300 mg PO TID [facility] Last Admin: 05/05/19 09:03 Dose: 300 mg Glucagon (Glucagon) 1 mg IM PRN PRN PRN Reason: Hypoglycemia Guaifenesin (Robitussin Sf) 200 mg PO Q4H PRN PRN Reason: Cough Last Admin: 04/30/19 13:24 Dose: 200 mg Guaifenesin/Dextromethorphan (Mucinex Dm) 1 tab PO Q12HR [facility] Last Admin: 05/05/19 09:03 Dose: 1 tab Insulin Glargine 20 units/ (Miscellaneous Medication) 0.2 mls @ 0 mls/hr SC [facility] Last Admin: 05/04/19 22:54 Dose: Not Given Dextrose/Water (D5w) 1,000 mls @ 0 mls/hr IV .Q0M PRN PRN Reason: Hypoglycemia Insulin Human Lispro (Humalog) 0 units SC .BEDTIME SLIDING SC PRN PRN Reason: Bedtime Correctional Scale Last Admin: 05/02/19 21:02 Dose: 4 unit Insulin Human Lispro (Humalog) 0 units SC .AGGRESSIVE SLIDING PRN; Protocol PRN Reason: AGGRESSIVE SLIDING SCALE Last Admin: 05/05/19 13:25 Dose: 6 unit Levothyroxine Sodium (Synthroid) 175 mcg PO 0600 [facility] Last Admin: 05/05/19 05:58 Dose: 175 mcg Metoprolol Succinate (Toprol Xl) 50 mg PO [facility] Last Admin: 05/05/19 09:03 Dose: 50 mg Pantoprazole Sodium (Protonix) 40 mg PO [facility] Last Admin: 05/05/19 09:03 Dose: 40 mg [facility]) [facility] Admin: 05/05/19 09:01 Dose: 20 mg Rosuvastatin Calcium (Crestor) 10 mg PO QPM [facility] Last Admin: 05/04/19 22:52 Dose: 10 mg Sodium Chloride (Flush - Normal Saline) 10 ml IVF Q12HR [facility] Last Admin: 05/05/19 09:05 Dose: 10 ml Sodium Chloride (Flush - Normal Saline) 10 ml IVF PRN PRN PRN Reason: Saline Flush Last Admin: 05/01/19 01:45 Dose: 10 ml Throat Lozenges (Cepastat Lozenges) 1 adriana PO Q2H PRN PRN Reason: Sore Throat Last Admin: 05/02/19 18:06 Dose: 1 adriana Vital Signs & Weight: Vital Signs Temp Pulse Pulse Pulse Resp BP BP 05/05/19 11:30 98.2 F 73 20 05/05/19 10:02 75 74 181/74 H 144/63 H 05/05/19 07:40 97.9 F 76 18 05/05/19 06:00 70 17 05/05/19 02:30 73 18 BP BP BP Pulse Ox 05/05/19 11:30 127/62 93 L 05/05/19 10:02 05/05/19 07:40 171/72 H 92 L 05/05/19 06:00 154/67 H 96 05/05/19 02:30 136/63 96 Weight 203 lb - Physical Exam General: alert & oriented x3, no apparent distress Neck: no masses, no bruit Cardiac: regular rate, regular rhythm Lungs: normal exam Neuro: grossly intact Abdomen: soft, non-tender, no masses - Labs Result Diagrams: 05/03/19 04:47 05/04/19 04:16 Troponin/CKMB Troponin I Less than 0.010 ng/mL (< 0.028) 04/29/19 21:09 - Telemetry Sinus rhythms and dysrhythmias: sinus rhythm - Assessment/Plan Assessment/Plan: Atrial flutter TAVR COPD Doing well Continue low dose amiodarone and eliquis Contiue metoprolol PO FU with Radha Tidwell in one week Will sign off
[2019-05-05 13:53] VITALS: BP 127/59; TEMP 98.4
--- NOTE | 2019-05-05 14:35 | PQF ---
DATE: 05-05-19 ATTN: DR. MADISON CRANE Please exercise your independent, professional judgment in responding to the clarification form. Clinical indicators are provided on the bottom of this form for your review Please check appropriate box(s): [ ] Encephalopathy: Type: [ ] Acute [ ] Subacute [ ] Chronic Etiology: [ ] Metabolic [ ] Toxic [ ] Other (please specify) [ ] Transient Alteration of Awareness [ ] Other diagnosis [ ] Unable to determine In addition, please specify: Present on Admission (POA): [ ] Yes [ ] No [ ] Unable to determine For continuity of documentation, please document condition throughout progress notes and discharge summary. Thank You. CLINICAL INDICATORS - SIGNS / SYMPTOMS / LABS / RESULTS AND LOCATION IN EMR: ER NOTES 05-03-19: CONFUSION, MENTAL STATUS CHANGES, HX OF DIABETES, SCHIZOPHRENIA H&P 05-03-19: ADMIT WITH DKA. HE IS ALERT AND ORIENTED X2. HE IS NOT VERY CLEAR ABOUT HIS CLINICAL CONDITION. RISK FACTORS / RESULTS AND LOCATION IN EMR: H&P 05-03-19: ADMIT WITH DKA. TREATMENTS / RESULTS AND LOCATION IN EMR: PN DR. MADISON CRANE 05-03-19: OFF INSULIN DRIP, D/C 1/2 NS PT ON PO INTAKE AND DOING WELL, NEEDS DIABETIC EDUCATION (This form is maintained as a part of the permanent medical record) 2014 [email or web address], [employer]. All Rights Reserved [email or web address] [email or web address] Office: [phone] [facility]
--- NOTE | 2019-05-05 21:22 | DIS ---
DATE OF ADMISSION: 04/29/2019 DATE OF DISCHARGE: 05/05/2019 PRIMARY CARE PROVIDER: Eleonora Larson MD DISCHARGE DIAGNOSES: 1. Atrial fibrillation with rapid ventricular response. 2. Asthmatic bronchitis. 3. Chronic diastolic congestive heart failure, [place] Heart Association class II. 4. Atrial flutter. 5. Klebsiella urinary tract infection. CONDITION OF PATIENT ON THE DAY OF DISCHARGE: Stable. I assessed Ms. Rivers on the day of discharge. She denies any chest pain or shortness of breath. Vital signs are stable. S1 and S2 are heard, regular. Lungs are clear to auscultation bilaterally. CONSULTATIONS DURING THIS HOSPITALIZATION: 1. Cardiology, Dr. Zamorano. 2. Electrophysiology, Dr. Preciado. 3. Pulmonology, Dr. Odom. DISCHARGE MEDICATIONS: No change was made to her pre-admission home medications, which include: 1. Amiodarone 100 mg daily. 2. Norvasc 10 mg in the evening. 3. Clonazepam 0.5 mg 2 times a day as needed. 4. Docusate 200 mg 2 times a day. 5. Cymbalta 30 mg every evening. 6. Gabapentin 300 mg 3 times a day. 7. [place] 10/325 mg every 8 hours. 8. Synthroid 175 mcg daily. 9. Metformin 500 mg every evening. 10. Metoprolol succinate 50 mg every morning. 11. Protonix 40 mg every morning. 12. Rosuvastatin 10 mg every evening. 13. PreserVision one tablet daily. 14. Eliquis 5 mg 2 times a day. 15. Clonidine 0.1 mg 2 times a day as needed. HOSPITAL COURSE: Ms. Rivers is a pleasant 88-year-old lady, who was admitted to [facility] on April 29, 2019, for atrial fibrillation with rapid ventricular response. Please refer to Ms. Heard's history and physical note dated April 29, 2019, for further details. She was seen by Cardiology and Electrophysiology Services. She was also seen by Pulmonology Service for asthmatic bronchitis. She was treated with antibiotics, bronchodilators and steroids with improvement in her symptoms. She converted to normal sinus rhythm. She underwent ablation on May 04, 2019. She was stable overnight and is being discharged home in a stable condition. Her blood sugars were elevated during this hospitalization, but improved after discontinuing her steroids. She is advised to check her blood sugars 3 times a day and show the readings to primary care provider. POST ACUTE CARE FOLLOWUP: With Dr. Zamorano in 2 to 3 weeks, with Dr. Preciado in 2 to 3 weeks, and with primary care provider in 3 days. DIET: Heart healthy, low-sodium, and diabetic diet. ACTIVITY: As tolerated. Arrangements are being made for home health for physical therapy. Creatinine was 1.19 on May 04. Hemoglobin was 10.5 on May 03. She also had urine culture that was positive for Klebsiella. She received ceftriaxone at the time of admission. Many thanks for allowing me to participate in your patient's care. Please feel free to contact me with any questions or concerns. DISCHARGE DESTINATION: Home with home health. TIME SPENT: Total amount of time spent coordinating this discharge: 34 minutes. Job ID: [id number]
[2019-05-06] MEDS ORDERED: Fluticasone Propionate Nasal Spray 16 gm Bottle NASAL SCH (09:00)
--- NOTE | 2019-05-06 09:53 | PQF ---
DATE: 05-01-19 ATTN: DR. ZOLTAN GONSALES/ DR. AIDAN LOU Please exercise your independent, professional judgment in responding to the clarification form. Clinical indicators are provided on the bottom of this form for your review Please check appropriate box(s): [ X ] Hyponatremia [ ] Insignificant Lab Values [ ] Associated Diagnosis: [ ] Other diagnosis [ ] Unable to determine In addition, please specify: Present on Admission (POA): [X ] Yes [ ] No [ ] Unable to determine For continuity of documentation, please document condition throughout progress notes and discharge summary. Thank You. CLINICAL INDICATORS - SIGNS / SYMPTOMS/ LABS are present in the medical record: SODIUM: 04-29-19: 132 04-30-19: 134 05-01-19: 130, 129 RISK FACTORS: H&P: 04-29-19: SHE HAS BEEN COMPLAINING OF DYSURIA FOR THE LAST FEW DAYS, SHE HAS BEEN GENERALLY WEAK SINCE COMING HOME FROM THE HOSPITAL TREATMENT: PN DR. KNIGHT 04-30-19: MONITOR ELECTROLYTES AND REPLACE NECESSARY LABS: SODIUM 04-29-19 TO 05-01-19 (This form is maintained as a part of the permanent medical record) 2014 [employer], [employer]. All Rights Reserved [email or web address] [email or web address] Office: [phone] [facility]ENTERJan[facility]
== END 2019-05-05 14:37 | disposition home health service (06) | DRG 274 ==
LOC: ERS 14:43 → 2NO 17:24
PROVIDERS: ADMIT Emergency Medicine; ATTEND Internal Medicine
PROC: 02583ZZ Destruction of Conduction Mechanism, Percutaneous Approach (ICD-10-PCS; principal; 2019-05-04)
DX: I48.92 Unspecified atrial flutter (principal); I50.32 Chronic diastolic (congestive) heart failure; N39.0 Urinary tract infection, site not specified; I13.0 Hypertensive heart and chronic kidney disease with heart failure and stage 1 through stage 4 chronic kidney disease, or unspecified chronic kidney disease; E87.1 Hypo-osmolality and hyponatremia; I48.20 Chronic atrial fibrillation, unspecified; N18.3 Chronic kidney disease, stage 3 (moderate); E11.22 Type 2 diabetes mellitus with diabetic chronic kidney disease; B96.1 Klebsiella pneumoniae [K. pneumoniae] as the cause of diseases classified elsewhere; J45.909 Unspecified asthma, uncomplicated; F41.9 Anxiety disorder, unspecified; E78.5 Hyperlipidemia, unspecified; I25.10 Atherosclerotic heart disease of native coronary artery without angina pectoris; R30.0 Dysuria; E83.42 Hypomagnesemia; J44.9 Chronic obstructive pulmonary disease, unspecified; E66.9 Obesity, unspecified; Z88.0 Allergy status to penicillin; Z88.2 Allergy status to sulfonamides; Z68.33 Body mass index [BMI] 33.0-33.9, adult; Z95.5 Presence of coronary angioplasty implant and graft; Z87.891 Personal history of nicotine dependence; Z87.01 Personal history of pneumonia (recurrent); Z90.49 Acquired absence of other specified parts of digestive tract
CPT/HCPCS: 36415; 36416; 71045; 76942; 80048; 80053; 81001; 82550; 82805; 83036; 83605; 83735; 83880; 84484; 85025; 85610; 85730; 87040; 87077; 87086; 87186; 92960; 93005; 93306; 93613; 93621; 93623; 93653; 93970; 94640; 94760; 96365; 96366; 96376; 99214; C1732; C1769; G0463; J0456; J0696; J1265; J1644; J1815; J1940; J2001; J2704; J2920; J3475; J3490; J7050; J7512; J7620; J7626; S0028

== ENCOUNTER 2019-06-02 11:24 | Emergency (ER) | payer MEDICARE, BC ==
[2019-06-02 12:07] LABS: #Eosinphils 0.3 thou/uL (0.0-0.7); #Lymphocytes 1.6 thou/uL (1.20-3.40); #Monocytes 0.6 thou/uL (0.11-0.59); #Neutrophils 4.6 thou/uL (1.40-6.50); %Basophils 0.3 % (0.0-1.0); %Eosinophils 4.7 % (0.0-10.0); %Lymphocytes 22.4 % (21.0-51.0); %Monocytes 8.8 % (0.0-10.0); %Neutrophils 63.9 % (42.0-75.0); Hemoglobin 12.1 g/dL (12.0-16.0); Mean Corpuscular HGB CONC 31.7 g/dL (32.0-36.0); Mean Corpuscular Hemoglobin 29.4 pg (27.0-31.0); Mean Corpuscular Volume 92.8 fL (78.0-98.0); Mean Platelet Volume 8.3 fL (7.4-10.4); Platelet Count 184 thou/uL (130-400); RBC Distribution Width 14.2 % (11.5-14.5); Red Blood Cell (RBC) Count 4.12 mill/uL (4.20-5.40); White Blood Cell (WBC) Count 7.2 thou/uL (4.8-10.8)
--- NOTE | 2019-06-02 12:23 | CT ---
CT cervical spine noncontrast HISTORY: Fall. Neck injury. FINDINGS: Vertebral body heights are maintained. Multilevel gas disc phenomenon, disc space narrowing , and prominent osteophytosis. Minimal degenerative spondylolisthesis at the C6-7 and C7-T1 levels. No acute fracture or dislocation are apparent. Multilevel severe foraminal stenoses. Prominent calcification within the carotid arteries, including the bifurcations. IMPRESSION: Prominent OsteoArthritic changes. No acute osseous abnormalities are demonstrated. Atherosclerosis.
--- NOTE | 2019-06-02 12:25 | CT ---
CT head noncontrast HISTORY: Fall. Head injury. FINDINGS: There is no evidence of acute intracranial hemorrhage or infarct. 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 Additional chronic ischemic small vessel disease. Mild diffuse cortical atrophy. There is no mass effect or shift of mid line structures. Prominent calcification within the arterial structures. Prominent mucosal thickening of the maxillary sinuses. IMPRESSION: Prominent chronic ischemic disease. No acute intracranial abnormalities are demonstrated. Atherosclerosis. Bilateral maxillary sinusitis.
[2019-06-02 12:45] LABS: ALT (SGPT) 9 U/L (8-55); AST (SGOT) 10 U/L (5-34); Albumin 3.4 g/dL (3.4-4.8); Alkaline Phosphatase 80 U/L (40-110); Anion Gap 15 mmol/L (10-20); BUN (Urea Nitrogen) 15 mg/dL (9.8-20.1); Bilirubin, Total 0.4 mg/dL (0.2-1.2); Calc. Creatinine Clearance 0 mL/min (70-130); Calcium 7.9 mg/dL (7.8-10.44); Carbon Dioxide 23 mmol/L (23-31); Chloride 102 mmol/L (98-107); Estimated GFR-MDRD 51; Globulin 2.3 g/dL (2.4-3.5); Glucose 310 mg/dL (83-110); Potassium 4.6 mmol/L (3.5-5.1); Protein, Total 5.7 g/dL (6.0-8.3); Sodium 135 mmol/L (136-145)
--- NOTE | 2019-06-02 13:21 | RAD ---
XR Hip Rt 2-3 View History: Pain Comparison: Hip radiograph December 2018 Findings: No acute fracture or malalignment. Mild vascular calcifications. The right obturator ring i s intact. Impression: No acute osseous abnormality.
--- NOTE | 2019-06-02 13:23 | RAD ---
XR Hip Lt 2-3 View History: Fall Comparison: Radiograph 2019 Findings: Continued satisfactory appearance of the left hip arthroplasty with lateral collateral plat e and screw fixation. There is sclerosis along the distal femoral stem with remodeling and stress related changes. There is stress shielding along the proximal femoral stem. Old left pubic rami fractures. Impression: No acute osseous abnormality.
--- NOTE | 2019-06-02 13:23 | RAD ---
XR Shoulder Rt 3 View STANDARD History: Injury. Fall Comparison: None. Findings: No acute fracture or malalignment. Old right rib fractures. Mild degenerative disease of th e acromioclavicular and glenohumeral joints. Impression: No acute osseous abnormality.
--- NOTE | 2019-06-02 13:24 | RAD ---
XR Knee Rt 4 View STANDARD History: Fall Comparison: None. Findings: Mild chondrocalcinosis. Mild lateral compartment joint space narrowing with osteophyte form ation. No significant joint effusion. Impression: Moderate lateral compartment degenerative changes.
--- NOTE | 2019-06-02 13:25 | RAD ---
XR Knee Lt 4 View STANDARD History: Pain Comparison: None. Findings: No significant joint effusion. There is sclerosis along the anterior margin of distal femur near the femoral stem. No acute fracture or malalignment. Impression: 1. No acute osseous abnormality. 2. Abnormal cortical sclerosis anterior distal femoral diaphysis at the femoral stem, stress related.
--- NOTE | 2019-06-02 13:25 | RAD ---
XR Elbow Rt 4 View STANDARD History: Injury Comparison: None. Findings: No significant joint effusion. No acute displaced fracture or malalignment. Mild medial sof t tissue swelling. Impression: Medial soft tissue swelling without acute fracture or malalignment.
[2019-06-02 13:40] LABS: Bilirubin Negative (Negative); Blood, Urine Negative (Negative); Clarity Clear (Clear); Glucose, Urine (Dipstick) Greater than 1000 mg/dL (Negative); Leukocyte Negative Leu/uL (Negative); Nitrite Negative (Negative); Protein, Urine (Dipstick) 20 mg/dL (Neg-Trace); Urobilinogen Normal mg/dL (Less than 2)
== END 2019-06-02 15:29 ==
LOC: ERS 11:24
DX: S50.01XA Contusion of right elbow, initial encounter (principal); M25.561 Pain in right knee; M25.562 Pain in left knee; M25.511 Pain in right shoulder; I11.0 Hypertensive heart disease with heart failure; I50.9 Heart failure, unspecified; I48.91 Unspecified atrial fibrillation; E11.9 Type 2 diabetes mellitus without complications; E78.5 Hyperlipidemia, unspecified; F41.9 Anxiety disorder, unspecified; Z87.891 Personal history of nicotine dependence; Z79.84 Long term (current) use of oral hypoglycemic drugs; Z79.899 Other long term (current) drug therapy; Z79.01 Long term (current) use of anticoagulants; W18.30XA Fall on same level, unspecified, initial encounter; Y93.01 Activity, walking, marching and hiking; Y92.59 Other trade areas as the place of occurrence of the external cause
CPT/HCPCS: 36415; 51701; 70450; 72125; 80053; 81003; 84484; 85025; 93005

== ENCOUNTER 2019-12-31 20:28 | Emergency (ER) | payer MEDICARE, BC ==
[2019-12-31 22:02] LABS: #Eosinphils 0.2 thou/uL (0.0-0.7); #Lymphocytes 1.6 thou/uL (1.20-3.40); #Neutrophils 6.3 thou/uL (1.40-6.50); %Basophils 0.3 % (0.0-1.0); %Monocytes 10.6 % (0.0-10.0); %Neutrophils 69.1 % (42.0-75.0); Hemoglobin 12.7 g/dL (12.0-16.0); Mean Corpuscular HGB CONC 32.4 g/dL (32.0-36.0); Mean Corpuscular Hemoglobin 29.2 pg (27.0-31.0); Mean Corpuscular Volume 90.2 fL (78.0-98.0); Platelet Count 221 thou/uL (130-400); RBC Distribution Width 14.1 % (11.5-14.5); Red Blood Cell (RBC) Count 4.36 mill/uL (4.20-5.40); White Blood Cell (WBC) Count 9.1 thou/uL (4.8-10.8)
[2019-12-31 22:09] LABS: INR-International Normal Ratio 1.3; PTT 34.7 sec (22.9-36.1); Prothrombin Time 16.2 sec (12.0-14.7)
[2019-12-31] MEDS ORDERED: Ondansetron PF 4 MG/2 ML Vial ONE (22:38)
[2019-12-31 23:31] LABS: ALT (SGPT) 7 U/L (8-55); AST (SGOT) 9 U/L (5-34); Albumin 3.7 g/dL (3.4-4.8); Alkaline Phosphatase 77 U/L (40-110); Anion Gap 13 mmol/L (10-20); BUN (Urea Nitrogen) 18 mg/dL (9.8-20.1); Bilirubin, Total 0.3 mg/dL (0.2-1.2); Calc. Creatinine Clearance 0 mL/min (70-130); Calcium 8.6 mg/dL (7.8-10.44); Carbon Dioxide 26 mmol/L (23-31); Chloride 100 mmol/L (98-107); Estimated GFR-MDRD 39; Globulin 3.1 g/dL (2.4-3.5); Glucose 219 mg/dL (83-110); Potassium 4.1 mmol/L (3.5-5.1); Protein, Total 6.8 g/dL (6.0-8.3); Sodium 135 mmol/L (136-145)
--- NOTE | 2020-01-01 00:03 | CT ---
EXAM: CT ABDOMEN AND PELVIS HISTORY: Abdominal pain and distention. No bowel movement x5 days. Constipation. COMPARISON: None. Procedure: Multiple contiguous axial images were obtained and a CT of the abdomen and pelvis with IV contrast. C oronal reformats were performed. FINDINGS: Lower Chest: Scarring and atelectasis. Incompletely evaluated solid nodule in the middle lobe measuri ng 6 0.7 cm. Correlation made with CT angiogram of the chest does demonstrate the nodule to be stable.. Vessels: Atherosclerosis of a nonaneurysmal aorta. Heart: Cardiomegaly. There is a stent at the root of the aorta and proximal ascending thoracic aorta Abdomen: Portal vein:Patent Gallbladder: No calcified gallstones. Normal caliber wall. Liver: within normal limits. Pancreas: Atrophy Spleen: within normal limits. Adrenals: Normal-appearing right adrenal gland. Left adrenal nodule, measuring 1.9 x 1.6 cm. Evaluati on is incomplete. Kidneys: Symmetric enhancement. No obstructive uropathy. Peritoneum: No ascites or free air, no fluid collection. Bowel: Limited evaluation of the optic canal by the lack of oral contrast. Gastric mucosa, duodenum a nd multiple normal caliber small bowel loops. Ileocecal junction appears to be normal. Appendix is not appreciated. No inflammation of the cecal apex. Copious fecal material throughout the colon. Mesentery and Retroperitoneum: No enlarged mesenteric or retroperitoneal lymph nodes. 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 There does not appear to be an associated obstruction. However, there is copious fecal material throughout the entire colon. The possibility of constipation cannot b e excluded. There is an anterior right para midline abdominal wall hernia measuring 1.6 cm. There is associated herniated mesenteric fat. Pelvis: Reproductive Organs: Uterus is surgically absent. Pelvis: No mass, lymphadenopathy, free air or free fluid. Bladder: within normal limits. Bones: Chronic changes throughout the spine. Limited evaluation of the pelvis due to beam attenuation artifact from left hip arthroplasty. Remote compression fracture at T11, T12 and L1. IMPRESSION: 1. 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 No evid ence of obstruction. However, there is a copious amount of fecal material worrisome for constipation. 2. Redemonstration of a 0.7 cm nodule in the middle lobe, incompletely evaluated 3. Indeterminate left adrenal nodule. Consider renal mass protocol CT or abdomen MRI. Code lung nodule
== END 2020-01-01 01:00 | disposition home or self-care (01) ==
LOC: ERS 20:28
DX: K43.5 Parastomal hernia without obstruction or gangrene (principal); K59.00 Constipation, unspecified; R11.0 Nausea; F41.9 Anxiety disorder, unspecified; I11.0 Hypertensive heart disease with heart failure; I50.9 Heart failure, unspecified; E11.9 Type 2 diabetes mellitus without complications; E78.5 Hyperlipidemia, unspecified; E78.00 Pure hypercholesterolemia, unspecified; I48.91 Unspecified atrial fibrillation; Z85.038 Personal history of other malignant neoplasm of large intestine; Z87.891 Personal history of nicotine dependence; Z79.84 Long term (current) use of oral hypoglycemic drugs; Z79.899 Other long term (current) drug therapy; Z79.01 Long term (current) use of anticoagulants
CPT/HCPCS: 74177; 80053; 85025; 85610; 85730; 96374; J2405; Q9967

== ENCOUNTER 2020-03-11 10:41 | Inpatient (IN) | payer MEDICARE, BC ==
[2020-03-11] MEDS ORDERED: Ibuprofen 800 MG TAB ONE (11:33)
[2020-03-11 11:35] LABS: Hemoglobin 9.5 g/dL (12.0-16.0); Mean Corpuscular HGB CONC 32.7 g/dL (32.0-36.0); Mean Corpuscular Hemoglobin 29.6 pg (27.0-31.0); Mean Corpuscular Volume 90.4 fL (78.0-98.0); Mean Platelet Volume 8.7 fL (7.4-10.4); Platelet Count 182 thou/uL (130-400); Red Blood Cell (RBC) Count 3.22 mill/uL (4.20-5.40); White Blood Cell (WBC) Count 14.6 thou/uL (4.8-10.8)
[2020-03-11 11:38] LABS: INR-International Normal Ratio 1.9; Prothrombin Time 22.1 sec (12.0-14.7)
[2020-03-11 11:53] LABS: ALT (SGPT) 9 U/L (8-55); AST (SGOT) 11 U/L (5-34); Albumin 3.6 g/dL (3.4-4.8); Alkaline Phosphatase 94 U/L (40-110); Anion Gap 18 mmol/L (10-20); BUN (Urea Nitrogen) 27 mg/dL (9.8-20.1); Band 13 % (5-11); Bilirubin, Total 0.7 mg/dL (0.2-1.2); Calc. Creatinine Clearance 0 mL/min (70-130); Calcium 8.1 mg/dL (7.8-10.44); Carbon Dioxide 20 mmol/L (23-31); Chloride 99 mmol/L (98-107); Globulin 2.7 g/dL (2.4-3.5); Glucose 288 mg/dL (83-110); Lymphocytes 10 % (21-51); MDiff Complete? YES; Monocytes 9 % (0-10); Neutrophil 68 % (42-75); Nucleated RBC 1 % (0); Platelet Morphology Comment Appears Adequate; Polychromasia SLIGHT = 2-3 cells (100X) (0-2/hpf); Potassium 5.1 mmol/L (3.5-5.1); Protein, Total 6.3 g/dL (6.0-8.3); Sodium 132 mmol/L (136-145)
[2020-03-11] MEDS ORDERED: Iopamidol-370 76% 500 ML 1 ML ONE (11:54)
[2020-03-11 12:15] LABS: Bacteria/HPF 4+ HPF (None Seen); Bilirubin Negative (Negative); Blood, Urine 2+ (Negative); Clarity Turbid (Clear); Glucose, Urine (Dipstick) 100 mg/dL (Negative); Ketone, Urine Negative (Negative); Leukocyte 500 Leu/uL (Negative); Nitrite Negative (Negative); Protein, Urine (Dipstick) 200 mg/dL (Neg-Trace); Squamous Epithelial None Seen HPF (0-3); Urobilinogen Normal mg/dL (Less than 2); WBC/HPF Greater than 50 HPF (0-3); pH, Urine 5.5 (5.0-9.0)
--- NOTE | 2020-03-11 12:19 | RAD ---
XR Chest 1 View Portable History: Altered mental status Comparison: Radiograph May 01, 2019 Findings: Heart size is similar. No pneumothorax. No effusion. Prior transcatheter aortic valve repla cement. No acute osseous abnormality. Impression: No acute intrathoracic abnormality.
[2020-03-11] MEDS ORDERED: Vancomycin 1 GM/200 ML BAG ONE (12:49)
--- NOTE | 2020-03-11 12:51 | CT ---
Head CT without contrast 03/11/2020: COMPARISON: 06/02/2019 HISTORY: Altered mental status TECHNIQUE: Axial CT imaging at 5 mm intervals from vertex through skull base without contrast FINDINGS: The partially imaged maxillary sinus demonstrates mucosal thickening and wall thickening shah ggesting chronic sinusitis. There is atherosclerotic calcification of the cavernous carotid arteries and the distal vertebral art eries. There is no displaced calvarial fracture. There is multifocal periventricular, deep, and subcortical white matter hypodensity, evidence of smal l vessel disease. Right occipital encephalomalacia noted, evidence of prior infarction. IMPRESSION: Chronic findings as detailed above. No intracranial hemorrhage.
[2020-03-11 12:59] LABS: CKMB 0.2 ng/mL (0-6.6)
--- NOTE | 2020-03-11 13:15 | CT ---
Exam: CT angiogram of the chest HISTORY: Evaluate for pulmonary artery embolism. Recently diagnosed with a tract infection. Wheezing and shortness of breath. COMPARISON: 04/22/2019 TECHNIQUE: CT angiogram of the chest is performed in the axial plane. Three-dimensional reformatted i mages are submitted for interpretation FINDINGS: Mediastinum: No mass, lymphadenopathy or hematoma. Heart: Normal size. No significant pericardial fluid. There is a stent involving the aortic outlet. T here are coronary calcifications. Aorta: Atherosclerosis. No aneurysm or dissection. Upper solid abdominal viscera: Limited evaluation of the upper abdomen. Atrophy of the pancreas is no mali. Trachea and central bronchi: Patent Pleural spaces: No effusion Lung parenchyma: Masses or consolidation. There are dependent atelectatic changes. 0.9 cm solid nodul e in the right lower lobe. Nodule is unchanged since the most recent prior. Pneumothorax: None Osseous structures: Stable endplate deformity in the lower thoracic spine, presumed to be at the T10, T11 and T12 levels. Pulmonary arteries: Adequate contrast opacification pulmonary arterial system to the level of segment al arteries. No filling defect to suggest pulmonary embolism IMPRESSION: 1. No evidence of embolism to the level segmental arteries 2. Chronic lung parenchymal changes. 3. Chronic endplate deformities of the distal thoracic spine. 4. Solid nodule in the right lower lobe. Code lung nodule
[2020-03-11] MEDS ORDERED: Acetaminophen 650 MG Suppository PR PRN (14:51)
[2020-03-11] MEDS ORDERED: Dextrose 50% Abboject 50 ML SYRINGE SLOW IVP PRN (15:03)
[2020-03-11] MEDS ORDERED: Dextrose 5% in Water 1,000 ML IV PRN (15:03)
[2020-03-11 15:12] LABS: SARS-CoV-2 NAA Rapid Test Not Detected (NotDetected)
--- NOTE | 2020-03-11 15:22 | PDOC.HHP ---
Hospitalist HPI - History of Present Illness History of Present Illness: ADMISSION DATE: 03/11/2020 TIME OF ASSESSMENT:1400 PRIMARY CARE PHYSICIAN: Dr. Larson CHIEF COMPLAINT: Weakness and confusion HPI: This is an 89-year-old woman who presents to the emergency department with increasing weakness and confusion for the last 3 days. She has had diminished p.o. intake as well. He was seen by her primary care physician earlier this week and underwent a urinalysis that was unremarkable. She has however been complaining of dysuria throughout the week and has had decreased urinary output. Family decided to bring her into the emergency department today for further evaluation. Apparently had a fall earlier this week and patient denies sustaining any head injury. The fall was not witnessed. She is a poor historian due to underlying dementia but is usually able to answer questions appropriately. She has issues with short-term memory loss and often has some delays with becoming alert after waking up in the morning or waking up from a nap. ROS: At present she denies having any pain. No chest pain palpitations or shortness of breath. No recent fevers chills or sweats. As mentioned above she has been complaining of dysuria earlier this week. Also with a diminished appetite, increasing weakness and increasing confusion. All other review of systems apart from what is mentioned above are negative. ED COURSE: Per EMS patient had a respirate of 32 with sats of 92% at home therefore placed 2 L by nasal cannula with sats 100%. Her temp was 103.1 and therefore was given 1 g of Tylenol. Laboratory studies showed a white cell count of 14.6, hemoglobin 9.5, hematocrit 29.1, platelets 182, bands 13. Lactic acid 1.7. D-dimer 1.36. Troponin 0 0.037, CK-MB 0.2. CK 32. BNP 608.5. Sodium 132, BUN 27, creatinine 1.59, glucose 288, LFTs normal. Urinalysis showed turbid appearing urine with 500 leukocytes, 200 protein, 100 glucose, 2+ blood, 11-20 red blood cells and greater than 50 white blood cells. There was 4+ bacteria. Negative for nitrates. Chest x-ray showed no acute intrathoracic abnormality. She had a CT of the head demonstrating chronic findings with no evidence of intracranial hemorrhage. CT angiogram of the chest: 1. No evidence of embolism to the level segmental arteries 2. Chronic lung parenchymal changes. 3. Chronic endplate deformities of the distal thoracic spine. 4. Solid nodule in the right lower lobe. Code lung nodule PAST MEDICAL HISTORY: 1. CHF 2. Chronic A. fib anticoagulation with Eliquis 3. Hyperlipidemia 4. Type 2 diabetes mellitus 5. Hypertension 6. History of colon cancer 7. History of anxiety PAST SURGICAL HISTORY: 1. Cholecystectomy 2. History of colon resection SOCIAL HISTORY: Patient lives with her family. She uses a walker to get around at home but other mobility is very limited at baseline. She smoked in the past but quit more than 10 years ago. No alcohol consumption. FAMILY HISTORY: Noncontributory ALLERGIES: Penicillin and sulfa CURRENT MEDICATIONS: 1. Gabapentin 300 mg p.o. daily 2. Metoprolol succinate 50 mg p.o. daily 3. Rosuvastatin 10 mg p.o. daily 4. Pantoprazole 40 mg p.o. daily 5. Cymbalta 30 mg p.o. daily 6. Metformin 500 mg p.o. daily 7. Norvasc 10 mg p.o. daily 8. Amiodarone 100 mg p.o. daily 9. Levothyroxine 175 mcg p.o. daily 10. Colace 100 mg p.o. twice daily 11. Hydrocodone/acetaminophen 10/325 mg p.o. every 6 hours as needed for pain 12. Eliquis 5 mg p.o. twice daily 13. Clonidine 0.1 mg transdermally once daily 14. Clonazepam 0.5 mg p.o. twice daily 15. MiraLAX 17 g p.o. daily 16. Zofran 4 mg p.o. every 8 hours as needed for nausea vomiting. Hospitalist History - Past Medical History Psych: reports: Anxiety - Past Surgical History Past Surgical History: reports: Other (Colon resection, colostomy, Synchronized cardioversion) - Social History Alcohol: reports: None Drugs: reports: none - Exam General Appearance: NAD, awake alert General - other findings: VS: Temp 98.5, BP 131/54, HR 75, RR 23, O2 sat 97% on 2 L by nasal cannula. Eye: PERRL, anicteric sclera ENT: normocephalic atraumatic, no oropharyngeal lesions Neck: supple, symmetric, no lymphadenopathy Heart: RRR, normal peripheral pulses Respiratory: CTAB, no wheezes, no rales, no ronchi, normal chest expansion, no tachypnea Gastrointestinal: soft, non-tender, non-distended, normal bowel sounds, no guarding, no rigidity Extremities: no edema Skin: no lesions, no rashes, tenting Musculoskeletal: generalized weakness Psychiatric: oriented to person Hospitalist Results - Labs Result Diagrams: 03/11/20 11:17 03/11/20 11:17 Lab results: WBC 14.6 thou/uL (4.8-10.8) H 03/11/20 11:17 Hgb 9.5 g/dL (12.0-16.0) L 03/11/20 11:17 Hct 29.1 % (36.0-47.0) L 03/11/20 11:17 MCV 90.4 fL (78.0-98.0) 03/11/20 11:17 Plt Count 182 thou/uL (130-400) 03/11/20 11:17 Band Neuts % (Manual) 13 % (5-11) H 03/11/20 11:17 Sodium 132 mmol/L (136-145) L 03/11/20 11:17 Potassium 5.1 mmol/L (3.5-5.1) 03/11/20 11:17 Chloride 99 mmol/L (98-107) 03/11/20 11:17 Carbon Dioxide 20 mmol/L (23-31) L 03/11/20 11:17 BUN 27 mg/dL (9.8-20.1) H 03/11/20 11:17 Creatinine 1.59 mg/dL (0.6-1.1) H 03/11/20 11:17 Glucose 288 mg/dL (83-110) H 03/11/20 11:17 Lactic Acid 1.7 mmol/L (0.5-2.2) 03/11/20 11:17 Calcium 8.1 mg/dL (7.8-10.44) 03/11/20 11:17 Total Bilirubin 0.7 mg/dL (0.2-1.2) 03/11/20 11:17 AST 11 U/L (5-34) 03/11/20 11:17 ALT 9 U/L (8-55) 03/11/20 11:17 Alkaline Phosphatase 94 U/L (40-110) 03/11/20 11:17 Creatine Kinase 32 U/L (29-168) 03/11/20 11:17 CK-MB (CK-2) 0.2 ng/mL (0-6.6) 03/11/20 12:08 Troponin I 0.037 ng/mL (< 0.028) H 03/11/20 12:08 B-Natriuretic Peptide 608.5 pg/mL (0-100) H 03/11/20 11:17 Serum Total Protein 6.3 g/dL (6.0-8.3) 03/11/20 11:17 Albumin 3.6 g/dL (3.4-4.8) 03/11/20 11:17 Urine Ketones Negative mg/dL (Negative) 03/11/20 11:52 Urine Blood 2+ (Negative) A 03/11/20 11:52 Urine Nitrite Negative (Negative) 03/11/20 11:52 Ur Leukocyte Esterase 500 Irma/uL (Negative) A 03/11/20 11:52 Urine RBC 11-20 HPF (0-3) A 03/11/20 11:52 Urine WBC Greater than 50 HPF (0-3) A 03/11/20 11:52 Ur Squamous Epith Cells None Seen HPF (0-3) 03/11/20 11:52 Urine Bacteria 4+ HPF (None Seen) A 03/11/20 11:52 - Radiology Interpretation CT scan - head Status: report reviewed by pa CT scan - chest Status: report reviewed by pa Hospitalist H&P A/P - Problem (1) UTI (urinary tract infection) Status: Acute Assessment and Plan: Febrile with bandemia UCx pending Continue IV antibiotics Bladder scan to assess for urine retention (2) [id number] kidney injury Code(s): N17.9 - ACUTE KIDNEY FAILURE, UNSPECIFIED; N18.9 - CHRONIC KIDNEY DISEASE, UNSPECIFIED Status: Acute Assessment and Plan: Gentle hydration Monitor renal function If no significant improvement, consider nephrology consult and renal US (3) Weakness generalized Code(s): R53.1 - WEAKNESS Status: Acute Assessment and Plan: Secondary to UTI and dehydration Recent fall, s/p CT head which was negative PT/OT consulted Falls precaution (4) Decreased appetite Code(s): R63.0 - ANOREXIA Status: Acute Assessment and Plan: Given generalized weakness and confusion will hold diet for now Bedside screening for dysphagia to assess risk for aspiration If clear will resume a heart healthy/consistent carb diet (5) Diabetes mellitus Code(s): E11.9 - TYPE 2 DIABETES MELLITUS WITHOUT COMPLICATIONS Status: Chronic Assessment and Plan: Monitor glucose (ACHS) Mild sliding scale Hold Metformin in light of JOSE (6) Essential hypertension Code(s): I10 - ESSENTIAL (PRIMARY) HYPERTENSION Status: Chronic Assessment and Plan: Monitor BP Resume home meds as appropriate once verified Avoid nephrotoxic agents (7) Anemia Code(s): D64.9 - ANEMIA, UNSPECIFIED Status: Acute Assessment and Plan: Iron studies Check stool for occult blood Repeat H/H in 8 hours, if further drop, hold Eliquis. (8) Chronic a-fib Code(s): I48.20 - CHRONIC ATRIAL FIBRILLATION, UNSPECIFIED Status: Chronic Assessment and Plan: Resume Eliquis, Amiodarone and Metoprolol once verified (9) CAD (coronary artery disease) Code(s): I25.10 - ATHSCL HEART DISEASE OF [place] CORONARY ARTERY W/O ANG PCTRS Status: Chronic Assessment and Plan: Resume home medications once verified (10) History of CHF (congestive heart failure) Code(s): Z86.79 - PERSONAL HISTORY OF OTHER DISEASES OF THE CIRCULATORY SYSTEM Status: Chronic Assessment and Plan: No evidence of fluid overload, stable Gentle hydration given hx of CHF - Plan Plan: DVT Prophylaxis: Patient already on anticoagulation with Eliquis CODE STATUS: FULL Surrogate decision maker is her daughter: Nati Kinney Case discussed with Dr. Pang who agrees with plan as above.
[2020-03-11 18:07] VITALS: BMI 33.6
[2020-03-11] MEDS: Sodium Chloride 0.9% 1,000 ML IV SCH (18:46)
[2020-03-11] MEDS: Acetaminophen 325 MG TAB PO PRN (18:47)
[2020-03-11] MEDS: HumaLOG 300 UNITS/3 ML VIAL SC PRN (18:47)
[2020-03-12] MEDS: Acetaminophen 325 MG TAB PO PRN ×2 (03:46→15:44)
[2020-03-12] MEDS: HumaLOG 300 UNITS/3 ML VIAL SC PRN ×3 (06:13→16:17)
[2020-03-12 07:12] LABS: Anion Gap 16 mmol/L (10-20); BUN (Urea Nitrogen) 30 mg/dL (9.8-20.1); Calc. Creatinine Clearance 37 mL/min (70-130); Calcium 7.8 mg/dL (7.8-10.44); Carbon Dioxide 21 mmol/L (23-31); Chloride 98 mmol/L (98-107); Glucose 215 mg/dL (83-110); Iron 9 ug/dL (50-170); Iron Binding Capacity, Total 223 mcg/dL (265-497); Potassium 4.8 mmol/L (3.5-5.1); Sodium 130 mmol/L (136-145)
[2020-03-12 07:13] LABS: Magnesium 1.6 mg/dL (1.6-2.6)
[2020-03-12 07:38] LABS: Ferritin 133.83 ng/mL (10-291)
[2020-03-12 07:41] LABS: Band 36 % (5-11); Hemoglobin 10.1 g/dL (12.0-16.0); Lymphocytes 6 % (21-51); MDiff Complete? YES; Mean Corpuscular HGB CONC 32.8 g/dL (32.0-36.0); Mean Corpuscular Hemoglobin 29.3 pg (27.0-31.0); Mean Corpuscular Volume 89.2 fL (78.0-98.0); Mean Platelet Volume 8.5 fL (7.4-10.4); Metamyelocyte 1 % (0-0); Monocytes 5 % (0-10); Neutrophil 52 % (42-75); Platelet Count 134 thou/uL (130-400); RBC Distribution Width 14.9 % (11.5-14.5); Red Blood Cell (RBC) Count 3.43 mill/uL (4.20-5.40); White Blood Cell (WBC) Count 10.1 thou/uL (4.8-10.8)
--- NOTE | 2020-03-12 08:38 | RAD ---
XR Chest 1 View Portable History: Shortness of breath Comparison: Radiograph prior day Findings: Prior transcatheter aortic valve replacement. Mild pulmonary venous congestion/early pulmon aleisha edema. Heart size is enlarged. Trace effusions. No pneumothorax. Impression: New mild pulmonary venous congestion.
[2020-03-12] MEDS ORDERED: Furosemide 40 MG/4 ML VIAL ONE (08:50)
[2020-03-12] MEDS ORDERED: Furosemide 100 MG/10 ML VIAL SLOW IVP SCH (09:00)
[2020-03-12] MEDS: Sodium Chloride 0.9% 1,000 ML IV SCH (10:16)
[2020-03-12] MEDS: Diltiazem 125 MG in Sodium Chloride 0.9% 100 ML IVPB SCH (11:08)
--- NOTE | 2020-03-12 11:13 | CON ---
DATE OF CONSULTATION: 03/12/2020 This is a pulmonary/critical care consultation. 50 minutes of time, of that time, greater than 50% was spent with the patient and/or the patient's unit in the hospital. REASON FOR CONSULTATION: Respiratory failure related to congestive heart failure and atrial fibrillation with rapid ventricular response. HISTORY OF PRESENT ILLNESS: The patient is an 89-year-old female, who was initially admitted to the medical floor last night with weakness and confusion. She developed severe tachycardia last night with atrial fibrillation, was transferred to the unit for purposes of diuresis and BiPAP. She is now better and I was able to take the BiPAP off around 10:35 a.m. this morning. PAST MEDICAL HISTORY: 1. Atrial fibrillation. 2. Atrial flutter. 3. Systolic congestive heart failure. 4. Hyperlipidemia. 5. Type 2 diabetes mellitus. 6. Hypertension. 7. Colon cancer. 8. Anxiety. PAST SURGICAL HISTORY: 1. Cholecystectomy. 2. Colon resection. SOCIAL HISTORY: Lives with her family. Uses a walker to get around home. Quit smoking more than 10 years ago. Does not consume alcohol. FAMILY MEDICAL HISTORY: Unremarkable. ALLERGIES: PENICILLIN AND SULFA. MEDICATIONS: Prior to admission: 1. Gabapentin. 2. Metoprolol. 3. Rosuvastatin. 4. Pantoprazole. 5. Cymbalta. 6. Metformin. 7. Norvasc. 8. Amiodarone. 9. Levothyroxine. 10. Colace. 11. Hydrocodone. 12. Eliquis. 13. Clonidine. 14. Clonazepam. 15. MiraLAX. 16. Zofran. REVIEW OF SYSTEMS: Difficult to obtain because the patient is demented. PHYSICAL EXAMINATION: VITAL SIGNS: Pulse 131, blood pressure 163/106, O2 saturation 99%, and respiratory rate 30. GENERAL: She is somewhat confused, but pleasant. HEENT: Unremarkable. NECK: No adenopathy or JVD. CARDIAC: S1 and S2. Tachycardic and irregularly irregular. LUNGS: Few crackles in the bases. ABDOMEN: Soft and nontender. EXTREMITIES: No clubbing, cyanosis, or edema. LABORATORY DATA: BNP is ranged from 443 to 608. Sodium , potassium 4.8, chloride 98, CO2 of 21, BUN 30, creatinine 1.5, glucose 215. White blood count 10.1, hematocrit 30.6, and platelet count 134 with 52% neutrophils, 36% bands. Her COVID test was negative. X-ray shows cardiomegaly, some increased interstitial markings bilaterally. She has gram-negative rods coming from her blood. Urinalysis shows greater than 50 white blood cells. ASSESSMENT: 1. Urosepsis. 2. Atrial fibrillation with rapid ventricular response. 3. Systolic congestive heart failure. PLAN: 1. Treat the infection with antibiotics as you are doing. 2. Diurese. 3. Control of atrial fibrillation with Cardizem. 4. Would also resume her baseline amiodarone. 5. Consider cardiology input. Job ID: [id number]
[2020-03-12] MEDS ORDERED: clonazePAM 0.5 MG TAB PO PRN (12:37)
[2020-03-12] MEDS: Furosemide 40 MG/4 ML VIAL SLOW IVP SCH (13:32)
--- NOTE | 2020-03-12 15:36 | PDOC.HOSPP ---
- Subjective Subjective: Patient was seen examined at bedside. Patient went into atrial fib with RVR, and also respiratory distress. Stat x-ray, confirmed vascular congestion. Her heart rate was in the 140 range. Patient was subsequently given stat dose of 80 mg IV Lasix, BNP was elevated. She also started on Cardizem drip for rate control. She is on low-dose Eliquis for stroke prophylaxis. She is currently is on IV antibiotic, blood cultures came back positive, for E. coli. She is being transferred to ICU for higher level of care. Updated her daughter at bedside - Objective Vital Signs & Weight: Vital Signs (12 hours) Temp Pulse Resp BP Pulse Ox 03/12/20 12:00 97.9 F 98 03/12/20 11:02 98 03/12/20 09:55 100 03/12/20 09:00 122 H 24 H 98 03/12/20 08:30 96 32 H 96 03/12/20 08:00 95 03/12/20 07:49 98.9 F 96 22 H 114/56 L 96 03/12/20 04:00 98.5 F 81 16 137/83 100 Weight Weight 202 lb 1.6 oz Most Recent Monitor Data Heart Rate from ECG 117 NIBP 128/67 NIBP BP-Mean 87 Respiration from ECG 28 SpO2 97 I&O: 03/11/20 03/12/20 03/13/20 06:59 06:59 06:59 Output Total 1400 Balance -1400 Result Diagrams: 03/12/20 06:37 03/12/20 06:37 Additional Labs: Accuchecks 03/12/20 03/12/20 03/11/20 11:27 04:51 19:27 POC Glucose 215 H 213 H 244 H 03/11/20 17:02 POC Glucose 278 H Radiology Reviewed by me: Yes EKG Reviewed by me: Yes Hospitalist ROS - Medication Medications: Active Medications Generic Name Dose Route Start Last Admin Trade Name Freq PRN Reason Stop Dose Admin Acetaminophen 650 mg 03/11/20 14:51 03/12/20 03:46 Acetaminophen 325 Mg Tab PO 650 mg Q4H PRN Administration Headache/Fever/Mild Pain (1-3) Albuterol/Ipratropium 3 ml 03/12/20 08:17 03/12/20 08:30 Ipratropium/Albuterol Sulfate 3 Ml Neb NEB 3 ml [id number] PRN Administration SOB &/or Wheezing Clonazepam 0.5 mg 03/12/20 12:37 03/12/20 12:43 Clonazepam 0.5 Mg Tab PO 0.5 mg BIDPRN PRN Administration .AGITATION Furosemide 40 mg 03/12/20 14:00 03/12/20 13:32 Furosemide 40 Mg/4 Ml Vial SLOW IVP 40 mg 0600,1400 ALEX Administration Diltiazem HCl 125 mg/ Sodium 125 mls @ 0 mls/hr 03/12/20 10:00 03/12/20 11:08 Chloride IVPB 125 mls INF ALEX Administration Protocol Titrate Insulin Human Lispro 0 units 03/11/20 15:03 03/12/20 11:33 Humalog 300 Units/3 Ml Vial SC 3 unit .MILD SLIDING SCALE PRN Administration Mild Correctional Scale - Exam General Appearance: NAD Eye: PERRL ENT: normocephalic atraumatic Neck: supple, symmetric Heart: irregular Respiratory: CTAB, no wheezes Gastrointestinal: soft, non-tender Extremities: no cyanosis Skin: normal turgor Neurological: cranial nerve grossly intact, normal sensation to touch Musculoskeletal: normal tone Psychiatric: normal affect, normal behavior Hosp A/P - Plan The patient is a pleasant 89 years old female who has significant past medical histories of paroxysmal atrial fib, chronic diastolic heart failure, diabetes, hypertension, anxiety disorder, who presented to the ED with complaint of generalized weakness and confusion. She was admitted for UTI. Acute hypoxic respiratory failure-secondary to volume overload/atrial fib with RVR --Transfer to [facility] --Start as needed BiPAP, IV diuresis as below --Appreciate pulmonology input Atrial fib with RVR --Start Cardizem drip with bolus for rate control --Continue home dose Eliquis for stroke prophylaxis --Check echo to assess LV function. Consider cardiology consult CHF, acute on chronic diastolic dysfunction --Start IV diuresis as above --Check echo, follow renal function Sepsis, present on admission secondary to UTI --Continue IV antibiotic, follow urine culture E. coli bacteremia --Continue Rocephin, follow sensitivity Gram-negative UTI, POA --Continue IV antibiotic as above, follow sensitivity Chronic anemia --Hemoglobin stable, follow Essential hypertension --Resume home medication CAD --Denied chest pain --Continue home medication Anxiety disorder --Resume anxiolytic DM 2 --cont ISS DVT ppx: Patient is on home dose of Eliquis GI ppx: PPI Code Status: Full code Anticipated Dispo: Home with home health when medically stable
[2020-03-12] MEDS: cefTRIAXone\\ROCEPHIN 1 GM in Sodium Chloride 0.9% 100 ML IVPB SCH (16:35)
[2020-03-12] MEDS: Gabapentin 300 MG CAP PO SCH (20:55)
[2020-03-12] MEDS: DULoxetine 30 MG CAP PO SCH (20:55)
[2020-03-12] MEDS: Apixaban 2.5 MG TAB PO SCH (20:55)
[2020-03-12] MEDS: HYDROcodone/Acetaminophen 10/325 mg Tablet PO SCH (20:56)
[2020-03-13] MEDS: HYDROcodone/Acetaminophen 10/325 mg Tablet PO SCH ×3 (04:13→21:42)
[2020-03-13] MEDS: Furosemide 40 MG/4 ML VIAL SLOW IVP SCH ×2 (05:52→14:24)
[2020-03-13] MEDS: Levothyroxine 175 MCG TAB PO SCH (05:52)
[2020-03-13] MEDS: HumaLOG 300 UNITS/3 ML VIAL SC PRN ×2 (06:17→17:26)
[2020-03-13] MEDS: Gabapentin 300 MG CAP PO SCH ×3 (09:33→21:42)
[2020-03-13] MEDS: Amiodarone 200 MG TAB PO SCH (09:33)
[2020-03-13] MEDS: Apixaban 2.5 MG TAB PO SCH ×2 (09:33→21:42)
[2020-03-13] MEDS: Diltiazem 125 MG in Sodium Chloride 0.9% 100 ML IVPB SCH (09:35)
--- NOTE | 2020-03-13 12:18 | CON ---
DATE OF CONSULTATION: 03/13/2020 REASON FOR CONSULTATION: Atrial fibrillation with RVR. HISTORY OF PRESENT ILLNESS: Ms. Rivers is an 89-year-old woman, who was recently presented with weakness and confusion. She was diagnosed with UTI. She had difficulty with atrial fibrillation with RVR. She has a previous history of paroxysmal atrial fibrillation, but over the last several visits in the office, she has been in atrial fibrillation. She likely has more consistent persistent atrial fibrillation. She is currently on IV Cardizem for rate control. No fevers; no chills; no chest pain, pressure, or associated symptoms. CURRENT HOME MEDICATIONS: Include; 1. Humalog. 2. Rosuvastatin. 3. Pantoprazole. 4. Metoprolol 50 mg q.a.m. 5. Clonidine. 6. Cymbalta. 7. Gabapentin. 8. Norvasc 10 mg daily. 9. Amiodarone 100 mg daily. 10. Levothyroxine. 11. Colace. 12. Hydrocodone/acetaminophen. 13. Eliquis 5 mg b.i.d. 14. Clonazepam. 15. MiraLAX. 16. Ondansetron. 17. Januvia. PAST MEDICAL HISTORY: 1. Aortic stenosis, status post TAVR. 2. Anxiety disorder. 3. Colon cancer. 4. Hyperlipidemia. 5. Diabetes mellitus. 6. Gout. 7. Hypertension. 8. Acid reflux. 9. Previous UTI. 10. Persistent atrial fibrillation. 11. COPD. PAST SURGICAL HISTORY: 1. Appendectomy. 2. Colectomy. 3. Hip surgery. 4. Stent placement to the LAD and diagonal in 2018. 5. Lumpectomy. 6. TAVR in 2018. SOCIAL HISTORY: No current tobacco or alcohol use. ALLERGIES: PENICILLIN REVIEW OF SYSTEMS: A 10-point review of systems is reviewed and as above, otherwise negative. PHYSICAL EXAMINATION: VITAL SIGNS: Blood pressure 119/60, pulse 120, respirations 20. GENERAL: Patient is a pleasant woman, who is in no acute distress. The patient appears their stated age. NEUROLOGIC: The patient is alert and oriented x3 with no focal neurologic deficits. HEENT: Sclerae without icterus. Mouth has moist mucous membranes with normal pallor. NECK: No JVD. Carotid upstroke brisk. No bruits bilaterally. LUNGS: Clear to auscultation with unlabored respirations. BACK: No scoliosis or kyphosis. CARDIAC: ABDOMEN: Soft, nontender, nondistended. No peritoneal signs present. No hepatosplenomegaly. No abnormal striae. EXTREMITIES: 2+ femoral and 2+ dorsalis pedis pulses. No cyanosis, clubbing, or edema. SKIN: No gross abnormalities. PERTINENT LABORATORY DATA: Hemoglobin 10.1, hematocrit 30.6, white blood cell count 10.1, platelet count 134. Telemetry monitoring shows atrial fibrillation with RVR. IMPRESSION: 1. Atrial fibrillation with RVR. 2. Urinary tract infection. 3. Confusion. RECOMMENDATIONS: 1. Continue Eliquis at current dose. 2. Continue IV Cardizem. 3. Metoprolol has been increased to 100 mg one p.o. q.a.m. with first dose already given. May consider loading with digoxin versus adding p.o. Cardizem if not rate controlled. 4. Continue IV antibiotics for recent UTI. Job ID: [id number]
--- NOTE | 2020-03-13 13:25 | PDOC.HOSPP ---
- Subjective Subjective: Patient was seen examined at bedside. Patient stated still feeling much better this morning. Her echo is pending. Blood culture positive for E. coli, sensitivity currently pending. She is currently is on Rocephin empirically. Her rate is much better controlled on Cardizem drip. Appreciate input from cardiology. - Objective Vital Signs & Weight: Vital Signs (12 hours) Temp Pulse Resp BP Pulse Ox 03/13/20 08:00 97.9 F 120 H 17 119/60 100 03/13/20 03:00 98.6 F 115 H 25 H 141/68 H 100 Weight Weight 202 lb 1.6 oz Most Recent Monitor Data Heart Rate from ECG 109 NIBP 124/61 NIBP BP-Mean 82 Respiration from ECG 23 SpO2 100 I&O: 03/12/20 03/13/20 03/14/20 06:59 06:59 06:59 Intake Total 1324 Output Total 2750 Balance -1426 Result Diagrams: 03/12/20 06:37 03/12/20 06:37 Additional Labs: Accuchecks 03/13/20 03/13/20 03/13/20 10:21 05:55 00:02 POC Glucose 183 H 227 H 195 H 03/12/20 15:56 POC Glucose 202 H Radiology Reviewed by me: Yes EKG Reviewed by me: Yes Hospitalist ROS - Medication Medications: Active Medications Generic Name Dose Route Start Last Admin Trade Name Freq PRN Reason Stop Dose Admin Acetaminophen 650 mg 03/11/20 14:51 03/12/20 15:44 Acetaminophen 325 Mg Tab PO 650 mg Q4H PRN Administration Headache/Fever/Mild Pain (1-3) Hydrocodone Bitart/Acetaminophen 1 tab 03/12/20 22:00 03/13/20 04:13 Hydrocodone/Acetaminophen 10/325 Mg Tablet PO 1 tab Q8HR ALEX Administration Albuterol/Ipratropium 3 ml 03/12/20 08:17 03/12/20 08:30 Ipratropium/Albuterol Sulfate 3 Ml Neb NEB 3 ml [id number] PRN Administration SOB &/or Wheezing Amiodarone HCl 100 mg 03/13/20 09:00 03/13/20 09:33 Amiodarone 200 Mg Tab PO 100 mg QAM ALEX Administration Apixaban 2.5 mg 03/12/20 21:00 03/13/20 09:33 Apixaban 2.5 Mg Tab PO 2.5 mg BID ALEX Administration Clonazepam 0.5 mg 03/12/20 12:37 03/12/20 12:43 Clonazepam 0.5 Mg Tab PO 0.5 mg BIDPRN PRN Administration .AGITATION Duloxetine HCl 30 mg 03/12/20 21:00 03/12/20 20:55 Duloxetine 30 Mg Cap PO 30 mg QPM ALEX Administration Furosemide 40 mg 03/12/20 14:00 03/13/20 05:52 Furosemide 40 Mg/4 Ml Vial SLOW IVP 40 mg 0600,1400 ALEX Administration Gabapentin 300 mg 03/12/20 21:00 03/13/20 09:33 Gabapentin 300 Mg Cap PO 300 mg TID ALEX Administration Ceftriaxone Sodium 1 gm/ 100 mls @ 200 mls/hr 03/12/20 17:00 03/12/20 16:35 Sodium Chloride IVPB 100 mls 1700 ALEX Administration Diltiazem HCl 125 mg/ Sodium 125 mls @ 0 mls/hr 03/12/20 10:00 03/13/20 09:35 Chloride IVPB 125 mls INF ALEX Administration Protocol Titrate Insulin Human Lispro 0 units 03/11/20 15:03 03/13/20 06:17 Humalog 300 Units/3 Ml Vial SC 3 unit .MILD SLIDING SCALE PRN Administration Mild Correctional Scale Levothyroxine Sodium 175 mcg 03/13/20 06:00 03/13/20 05:52 Levothyroxine 175 Mcg Tab PO 175 mcg 0600 ALEX Administration Metoprolol Succinate 100 mg 03/13/20 09:00 03/13/20 09:34 Metoprolol Succinate Xl 100 Mg Tab PO 100 mg QAM ALEX Administration Pantoprazole Sodium 40 mg 03/13/20 09:00 03/13/20 09:34 Pantoprazole 40 Mg Tab PO 40 mg QAM ALEX Administration - Exam General Appearance: NAD Eye: PERRL ENT: normocephalic atraumatic Neck: supple Heart: irregular Respiratory: CTAB Gastrointestinal: soft, non-tender Extremities: no cyanosis Skin: normal turgor Neurological: cranial nerve grossly intact Psychiatric: normal affect, normal behavior, A&O x 3 Hosp A/P - Plan The patient is a pleasant 89 years old female who has significant past medical history of paroxysmal atrial fib, chronic diastolic heart failure, diabetes, hypertension, anxiety disorder, who presented to the ED with complaint of generalized weakness and confusion. She was admitted for UTI. Acute hypoxic respiratory failure-secondary to volume overload/atrial fib with RVR/Pul edema --resolved with IV diuresis. Pt required BiBAP briefly. now tolerating NC. Cont mgt as below Atrial fib with RVR - rate controlled --cont Cardizem drip with bolus for rate control --Continue home dose Eliquis for stroke prophylaxis --Check echo to assess LV function - pending --resume home dose BB. Apppreciate cardiology input CHF, acute on chronic diastolic dysfunction --cont IV diuresis as above --Check echo, follow renal function Sepsis, present on admission secondary to UTI --Continue IV antibiotic, follow urine culture results E. coli bacteremia --Continue Rocephin, follow sensitivity --Repeat blood cultures in a.m. to document clearance Gram-negative UTI, POA --Continue IV antibiotic as above, follow sensitivity Chronic anemia --Hemoglobin stable, follow Essential hypertension --Resume home medication CAD --Denied chest pain --Continue home medication Anxiety disorder --Resume anxiolytic DM 2 --cont ISS DVT ppx: Patient is on home dose of Eliquis GI ppx: PPI Code Status: Full code Anticipated Dispo: Home with home health when medically stable
[2020-03-13] MEDS: cefTRIAXone\\ROCEPHIN 1 GM in Sodium Chloride 0.9% 100 ML IVPB SCH (17:26)
[2020-03-13] MEDS: DULoxetine 30 MG CAP PO SCH (21:42)
[2020-03-14] MEDS ORDERED: Docusate 100 MG CAP PO SCH (00:15)
[2020-03-14] MEDS: HYDROcodone/Acetaminophen 10/325 mg Tablet PO SCH ×3 (05:37→21:08)
[2020-03-14] MEDS: Furosemide 40 MG/4 ML VIAL SLOW IVP SCH ×2 (05:37→14:21)
[2020-03-14] MEDS: Levothyroxine 175 MCG TAB PO SCH (05:37)
[2020-03-14 06:38] LABS: #Eosinphils 0.2 thou/uL (0.0-0.7); #Monocytes 0.8 thou/uL (0.11-0.59); %Basophils 0.1 % (0.0-1.0); %Eosinophils 1.8 % (0.0-10.0); %Lymphocytes 10.8 % (21.0-51.0); %Monocytes 8.6 % (0.0-10.0); %Neutrophils 78.7 % (42.0-75.0); Hemoglobin 10.5 g/dL (12.0-16.0); Mean Corpuscular HGB CONC 33.4 g/dL (32.0-36.0); Mean Corpuscular Hemoglobin 29.4 pg (27.0-31.0); Mean Corpuscular Volume 88.1 fL (78.0-98.0); Mean Platelet Volume 8.7 fL (7.4-10.4); Platelet Count 140 thou/uL (130-400); RBC Distribution Width 15.1 % (11.5-14.5); Red Blood Cell (RBC) Count 3.58 mill/uL (4.20-5.40); White Blood Cell (WBC) Count 8.9 thou/uL (4.8-10.8)
[2020-03-14 06:45] LABS: Anion Gap 20 mmol/L (10-20); BUN (Urea Nitrogen) 35 mg/dL (9.8-20.1); Calc. Creatinine Clearance 36 mL/min (70-130); Calcium 8.1 mg/dL (7.8-10.44); Carbon Dioxide 20 mmol/L (23-31); Chloride 97 mmol/L (98-107); Glucose 177 mg/dL (83-110); Magnesium 1.5 mg/dL (1.6-2.6); Potassium 4.1 mmol/L (3.5-5.1); Sodium 133 mmol/L (136-145)
[2020-03-14] MEDS: Gabapentin 300 MG CAP PO SCH ×3 (08:26→21:08)
[2020-03-14] MEDS: Amiodarone 200 MG TAB PO SCH (08:26)
[2020-03-14] MEDS: Docusate 100 MG CAP PO SCH ×2 (08:26→21:08)
[2020-03-14] MEDS: Apixaban 2.5 MG TAB PO SCH ×2 (08:26→21:07)
[2020-03-14] MEDS ORDERED: Diltiazem HCl SR 60 mg Capsule PO SCH (09:45)
[2020-03-14] MEDS: Acetaminophen 325 MG TAB PO PRN (12:16)
[2020-03-14] MEDS: HumaLOG 300 UNITS/3 ML VIAL SC PRN ×2 (14:24→17:22)
--- NOTE | 2020-03-14 14:40 | PDOC.HOSPP ---
- Subjective Encounter Date: 03/14/20 Encounter Time: 09:30 Subjective: Patient seen for follow-up regarding atrial fibrillation. She reports feeling better. - Objective Vital Signs & Weight: Vital Signs (12 hours) Temp Pulse Pulse Pulse Resp BP BP 03/14/20 12:00 68 19 03/14/20 09:52 70 74 153/66 H 139/63 03/14/20 08:21 97.7 F 64 17 03/14/20 08:00 03/14/20 07:02 03/14/20 03:12 98.6 F 73 18 BP Pulse Ox Pulse Ox Pulse Ox 03/14/20 12:00 126/58 L 97 03/14/20 09:52 98 98 03/14/20 08:21 129/58 L 95 03/14/20 08:00 95 03/14/20 07:02 96 03/14/20 03:12 116/56 L 96 Weight Weight 201 lb 12.8 oz Most Recent Monitor Data Heart Rate from ECG 109 NIBP 124/61 NIBP BP-Mean 82 Respiration from ECG 23 SpO2 100 I&O: 03/13/20 03/14/20 03/15/20 06:59 06:59 06:59 Intake Total 1324 1080 Output Total 2750 1250 Balance -1426 -170 Result Diagrams: 03/14/20 06:31 03/14/20 06:01 Additional Labs: Accuchecks 03/14/20 03/14/20 03/13/20 10:52 05:58 20:01 POC Glucose 282 H 162 H 160 H 03/13/20 16:26 POC Glucose 192 H Labs and MAR reviewed by me EKG Reviewed by me: Yes (Telemetry: A. fib with controlled ventricular response) Hospitalist ROS - Review of Systems Constitutional: reports: weakness Cardiovascular: denies: chest pain, palpitations, orthopnea, paroxysmal noc. dyspnea, edema, light headedness Gastrointestinal: denies: nausea, vomiting, abdominal pain, diarrhea, constipation, melena, hematochezia - Medication Medications: Active Medications Generic Name Dose Route Start Last Admin Trade Name Freq PRN Reason Stop Dose Admin Acetaminophen 650 mg 03/11/20 14:51 03/14/20 12:16 Acetaminophen 325 Mg Tab PO 650 mg Q4H PRN Administration Headache/Fever/Mild Pain (1-3) Hydrocodone Bitart/Acetaminophen 1 tab 03/12/20 22:00 03/14/20 14:21 Hydrocodone/Acetaminophen 10/325 Mg Tablet PO 1 tab Q8HR ALEX Administration Albuterol/Ipratropium 3 ml 03/12/20 08:17 03/12/20 08:30 Ipratropium/Albuterol Sulfate 3 Ml Neb NEB 3 ml [id number] PRN Administration SOB &/or Wheezing Apixaban 2.5 mg 03/12/20 21:00 03/14/20 08:26 Apixaban 2.5 Mg Tab PO 2.5 mg BID ALEX Administration Clonazepam 0.5 mg 03/12/20 12:37 03/12/20 12:43 Clonazepam 0.5 Mg Tab PO 0.5 mg BIDPRN PRN Administration .AGITATION Docusate Sodium 200 mg 03/14/20 09:00 03/14/20 08:26 Docusate 100 Mg Cap PO 200 mg BID ALEX Administration Duloxetine HCl 30 mg 03/12/20 21:00 03/13/20 21:42 Duloxetine 30 Mg Cap PO 30 mg QPM ALEX Administration Furosemide 40 mg 03/12/20 14:00 03/14/20 14:21 Furosemide 40 Mg/4 Ml Vial SLOW IVP 40 mg 0600,1400 ALEX Administration Gabapentin 300 mg 03/12/20 21:00 03/14/20 14:21 Gabapentin 300 Mg Cap PO 300 mg TID ALEX Administration Ceftriaxone Sodium 1 gm/ 100 mls @ 200 mls/hr 03/12/20 17:00 03/13/20 17:26 Sodium Chloride IVPB 100 mls 1700 ALEX Administration Insulin Human Lispro 0 units 03/11/20 15:03 03/14/20 14:24 Humalog 300 Units/3 Ml Vial SC 4 unit .MILD SLIDING SCALE PRN Administration Mild Correctional Scale Levothyroxine Sodium 175 mcg 03/13/20 06:00 03/14/20 05:37 Levothyroxine 175 Mcg Tab PO 175 mcg 0600 ALEX Administration Metoprolol Succinate 100 mg 03/13/20 09:00 03/14/20 08:27 Metoprolol Succinate Xl 100 Mg Tab PO 100 mg QAM ALEX Administration Pantoprazole Sodium 40 mg 03/13/20 09:00 03/14/20 08:28 Pantoprazole 40 Mg Tab PO 40 mg QAM ALEX Administration - Exam General Appearance: awake alert Eye: anicteric sclera ENT: moist mucosa Neck: supple Heart: no rubs, irregular Respiratory: CTAB Gastrointestinal: soft, non-tender Skin: no rashes Psychiatric: normal affect, normal behavior Hosp A/P - Plan Assessment/plan: Atrial fib -- rate controlled --Patient has been transitioned to oral Cardizem --Continue apixaban E. coli UTI --continue IV ceftriaxone E. coli bacteremia --Continue ceftriaxone Essential hypertension --Controlled and stable DM 2 --cont ISS Acute hypoxic respiratory failure-secondary to volume overload/atrial fib with RVR/Pul edema --resolved with IV diuresis. Pt required BiBAP briefly. CHF, acute on chronic diastolic dysfunction --Resolved Sepsis, present on admission secondary to UTI --Continue IV ceftriaxone
--- NOTE | 2020-03-14 16:16 | PDOC.CPN ---
- Subjective Date: 03/14/20 Time: 08:50 Interval history: Patient resting. No changes overnight. - Review of Systems ROS unobtainable: due to mental status - Objective Allergies/Adverse Reactions: Allergies Allergy/AdvReac Type Severity Reaction Status Date / Time Penicillins Allergy Verified 03/11/20 17:43 Sulfa (Sulfonamide Allergy Verified 03/11/20 17:43 Antibiotics) Visit Medications: Current Medications Acetaminophen (Acetaminophen 325 Mg Tab) 650 mg PO Q4H PRN PRN Reason: Headache/Fever/Mild Pain (1-3) Last Admin: 03/14/20 12:16 Dose: 650 mg Documented by: Acetaminophen (Acetaminophen 650 Mg Suppository) 650 mg FL Q4H PRN PRN Reason: Headache/Fever/Mild Pain (1-3) Hydrocodone Bitart/Acetaminophen (Hydrocodone/Acetaminophen 10/325 Mg Tablet) 1 tab PO Q8HR ALEX Last Admin: 03/14/20 14:21 Dose: 1 tab Documented by: Albuterol/Ipratropium (Ipratropium/Albuterol Sulfate 3 Ml Neb) 3 ml NEB [id number] PRN PRN Reason: SOB &/or Wheezing Last Admin: 03/12/20 08:30 Dose: 3 ml Documented by: Apixaban (Apixaban 2.5 Mg Tab) 2.5 mg PO BID [facility] Last Admin: 03/14/20 08:26 Dose: 2.5 mg Documented by: Clonazepam (Clonazepam 0.5 Mg Tab) 0.5 mg PO BIDPRN PRN PRN Reason: .AGITATION Last Admin: 03/12/20 12:43 Dose: 0.5 mg Documented by: Dextrose/Water (Dextrose 50% Abboject 50 Ml Syringe) 25 gm SLOW IVP PRN PRN PRN Reason: Hypoglycemia Diltiazem HCl (Diltiazem Hcl Sr 60 Mg Capsule) 60 mg PO BID ALEX Docusate Sodium (Docusate 100 Mg Cap) 200 mg PO BID [facility] Last Admin: 03/14/20 08:26 Dose: 200 mg Documented by: Duloxetine HCl (Duloxetine 30 Mg Cap) 30 mg PO QPM [facility] Last Admin: 03/13/20 21:42 Dose: 30 mg Documented by: Furosemide (Furosemide 40 Mg/4 Ml Vial) 40 mg SLOW IVP 0600,1400 [facility] Last Admin: 03/14/20 14:21 Dose: 40 mg Documented by: Gabapentin (Gabapentin 300 Mg Cap) 300 mg PO TID [facility] Last Admin: 03/14/20 14:21 Dose: 300 mg Documented by: Glucagon (Glucagon 1 Mg/Ml Vial) 1 mg IM PRN PRN PRN Reason: Hypoglycemia Ceftriaxone Sodium 1 gm/ (Sodium Chloride) 100 mls @ 200 mls/hr IVPB 1700 [facility] Last Admin: 03/13/20 17:26 Dose: 100 mls Documented by: Insulin Human Lispro (Humalog 300 Units/3 Ml Vial) 0 units SC .MILD SLIDING SCALE PRN PRN Reason: Mild Correctional Scale Last Admin: 03/14/20 14:24 Dose: 4 unit Documented by: Insulin Human Lispro (Humalog 300 Units/3 Ml Vial) 0 units SC .BEDTIME SLIDING SC PRN PRN Reason: Bedtime Correctional Scale Levothyroxine Sodium (Levothyroxine 175 Mcg Tab) 175 mcg PO 0600 [facility] Last Admin: 03/14/20 05:37 Dose: 175 mcg Documented by: Metoprolol Succinate (Metoprolol Succinate Xl 100 Mg Tab) 100 mg PO [facility] Last Admin: 03/14/20 08:27 Dose: 100 mg Documented by: Pantoprazole Sodium (Pantoprazole 40 Mg Tab) 40 mg PO [facility] Last Admin: 03/14/20 08:28 Dose: 40 mg Documented by: Sodium Chloride (Flush - Normal Saline 10 Ml Syringe) 10 ml IVF PRN PRN PRN Reason: Saline Flush Vital Signs & Weight: Vital Signs Temp Pulse Pulse Pulse Resp BP BP 03/14/20 15:46 98.4 F 71 18 03/14/20 12:00 68 19 03/14/20 09:52 70 74 153/66 H 139/63 03/14/20 08:21 97.7 F 64 17 03/14/20 08:00 03/14/20 07:02 BP Pulse Ox Pulse Ox Pulse Ox 03/14/20 15:46 145/63 H 95 03/14/20 12:00 126/58 L 97 03/14/20 09:52 98 98 03/14/20 08:21 129/58 L 95 03/14/20 08:00 95 03/14/20 07:02 96 Weight 201 lb 12.8 oz - Physical Exam General: no apparent distress HEENT: mucus membranes moist Neck: supple neck Cardiac: other (IRR IRR) Lungs: no wheezes, no rales Neuro: grossly intact Abdomen: soft Skin: clear Musculoskeletal: no pain - Labs Result Diagrams: 03/14/20 06:31 03/14/20 06:01 Troponin/CKMB CK-MB (CK-2) 0.2 ng/mL (0-6.6) 03/11/20 12:08 Troponin I 0.037 ng/mL (< 0.028) H 03/11/20 12:08 - Assessment/Plan Assessment/Plan: 1. Persistent AF 2. MS changes Will stop Amio as she has been in AF for some time now. Continue bblocker. Cardizem added q6 yesterday. Will change to SR BID. On ACT at appropriate dose for age and Cr.
[2020-03-14] MEDS: cefTRIAXone\\ROCEPHIN 1 GM in Sodium Chloride 0.9% 100 ML IVPB SCH (17:23)
[2020-03-14] MEDS: Diltiazem HCl SR 60 mg Capsule PO SCH (21:08)
[2020-03-14] MEDS: DULoxetine 30 MG CAP PO SCH (21:09)
[2020-03-15] MEDS: HYDROcodone/Acetaminophen 10/325 mg Tablet PO SCH ×3 (05:41→21:01)
[2020-03-15] MEDS: Levothyroxine 175 MCG TAB PO SCH (05:41)
[2020-03-15] MEDS: Furosemide 40 MG/4 ML VIAL SLOW IVP SCH ×2 (05:42→14:23)
[2020-03-15] MEDS: Gabapentin 300 MG CAP PO SCH ×3 (09:01→20:57)
[2020-03-15] MEDS: Diltiazem HCl SR 60 mg Capsule PO SCH ×2 (09:02→20:57)
[2020-03-15] MEDS: Apixaban 2.5 MG TAB PO SCH ×2 (09:02→20:57)
[2020-03-15] MEDS: Docusate 100 MG CAP PO SCH ×2 (09:02→20:57)
--- NOTE | 2020-03-15 10:49 | PRG ---
DATE OF SERVICE: 03/15/2020 SUBJECTIVE: Ms. Rivers is doing much better. Heart rate appears stable. She is off IV Cardizem. OBJECTIVE: VITAL SIGNS: Heart rate 89, blood pressure 132/62, temperature 97.6. LUNGS: Clear to auscultation. HEART: Irregularly irregular. ABDOMEN: Soft, nontender, nondistended. EXTREMITIES: No edema. IMPRESSION: 1. Atrial fibrillation with rapid ventricular response. 2. Urinary tract infection. 3. Mental status changes. RECOMMENDATIONS: Ms. Rivers's heart rate appears stable. She is in a persistent chronic atrial fibrillation. There is no benefit to amiodarone therapy in this situation. I will switch her p.o. Cardizem to long-acting Cardizem. Continue metoprolol at current dose. I would also recommend continuing Eliquis at 2.5 mg p.o. b.i.d. No further recommendations. We will sign off. Please re-consult if needed. We will follow up as an outpatient. Job ID: [id number]
[2020-03-15] MEDS: HumaLOG 300 UNITS/3 ML VIAL SC PRN ×3 (11:01→20:57)
[2020-03-15] MEDS: Acetaminophen 325 MG TAB PO PRN (11:05)
[2020-03-15] MEDS: cefTRIAXone\\ROCEPHIN 1 GM in Sodium Chloride 0.9% 100 ML IVPB SCH (16:46)
--- NOTE | 2020-03-15 17:53 | PDOC.HOSPP ---
- Subjective Encounter Date: 03/15/20 Encounter Time: 08:00 Subjective: Patient seen for follow-up regarding atrial fibrillation. She reports feeling better. - Objective Vital Signs & Weight: Vital Signs (12 hours) Temp Pulse Pulse Pulse Resp BP BP 03/15/20 15:20 98.5 F 80 17 03/15/20 11:07 98.7 F 85 19 03/15/20 10:32 80 86 132/62 151/113 H 03/15/20 08:40 03/15/20 08:03 97.6 F 03/15/20 08:00 89 19 BP Pulse Ox Pulse Ox Pulse Ox 03/15/20 15:20 131/61 96 03/15/20 11:07 151/113 H 97 03/15/20 10:32 97 96 03/15/20 08:40 97 03/15/20 08:03 03/15/20 08:00 132/62 97 Weight Weight 201 lb 12.8 oz Most Recent Monitor Data Heart Rate from ECG 109 NIBP 124/61 NIBP BP-Mean 82 Respiration from ECG 23 SpO2 100 I&O: 03/14/20 03/15/20 03/16/20 06:59 06:59 06:59 Intake Total 1080 1335 584 Output Total 1250 750 900 Balance -170 585 -316 Result Diagrams: 03/14/20 06:31 03/14/20 06:01 Additional Labs: Accuchecks 03/15/20 03/15/20 03/15/20 16:24 10:29 05:45 POC Glucose 268 H 311 H 203 H 03/14/20 20:41 POC Glucose 267 H I reviewed patient's labs and MAR EKG Reviewed by me: Yes (Telemetry: Kandi stern) Hospitalist ROS - Review of Systems Cardiovascular: denies: chest pain, palpitations, orthopnea, paroxysmal noc. dyspnea, edema, light headedness Gastrointestinal: denies: nausea, vomiting, abdominal pain, diarrhea, constipation, melena, hematochezia - Medication Medications: Active Medications Generic Name Dose Route Start Last Admin Trade Name Freq PRN Reason Stop Dose Admin Acetaminophen 650 mg 03/11/20 14:51 03/15/20 11:05 Acetaminophen 325 Mg Tab PO 650 mg Q4H PRN Administration Headache/Fever/Mild Pain (1-3) Hydrocodone Bitart/Acetaminophen 1 tab 03/12/20 22:00 03/15/20 14:16 Hydrocodone/Acetaminophen 10/325 Mg Tablet PO 1 tab Q8HR ALEX Administration Albuterol/Ipratropium 3 ml 03/12/20 08:17 03/12/20 08:30 Ipratropium/Albuterol Sulfate 3 Ml Neb NEB 3 ml [id number] PRN Administration SOB &/or Wheezing Apixaban 2.5 mg 03/12/20 21:00 03/15/20 09:02 Apixaban 2.5 Mg Tab PO 2.5 mg BID ALXE Administration Clonazepam 0.5 mg 03/12/20 12:37 03/12/20 12:43 Clonazepam 0.5 Mg Tab PO 0.5 mg BIDPRN PRN Administration .AGITATION Diltiazem HCl 60 mg 03/14/20 21:00 03/15/20 09:02 Diltiazem Hcl Sr 60 Mg Capsule PO 60 mg BID ALEX Administration Docusate Sodium 200 mg 03/14/20 09:00 03/15/20 09:02 Docusate 100 Mg Cap PO 200 mg BID ALEX Administration Duloxetine HCl 30 mg 03/12/20 21:00 03/14/20 21:09 Duloxetine 30 Mg Cap PO 30 mg QPM ALEX Administration Furosemide 40 mg 03/12/20 14:00 03/15/20 14:23 Furosemide 40 Mg/4 Ml Vial SLOW IVP 40 mg 0600,1400 ALEX Administration Gabapentin 300 mg 03/12/20 21:00 03/15/20 14:21 Gabapentin 300 Mg Cap PO 300 mg TID ALEX Administration Ceftriaxone Sodium 1 gm/ 100 mls @ 200 mls/hr 03/12/20 17:00 03/15/20 16:46 Sodium Chloride IVPB 100 mls 1700 ALEX Administration Insulin Human Lispro 0 units 03/11/20 15:03 03/15/20 16:43 Humalog 300 Units/3 Ml Vial SC 4 unit .MILD SLIDING SCALE PRN Administration Mild Correctional Scale Levothyroxine Sodium 175 mcg 03/13/20 06:00 03/15/20 05:41 Levothyroxine 175 Mcg Tab PO 175 mcg 0600 ALEX Administration Metoprolol Succinate 100 mg 03/13/20 09:00 03/15/20 09:02 Metoprolol Succinate Xl 100 Mg Tab PO 100 mg QAM ALEX Administration Pantoprazole Sodium 40 mg 03/13/20 09:00 03/15/20 09:03 Pantoprazole 40 Mg Tab PO 40 mg QAM ALEX Administration Sodium Chloride 10 ml 03/11/20 14:51 03/15/20 05:42 Flush - Normal Saline 10 Ml Syringe IVF 10 ml PRN PRN Administration Saline Flush - Exam General - other findings: Obese Eye: anicteric sclera ENT: moist mucosa Neck: supple Heart: irregular Respiratory: CTAB Gastrointestinal: soft Skin: no rashes Psychiatric: normal affect, normal behavior Hosp A/P - Plan Assessment/plan: Atrial fib -- rate controlled --Continue calcium channel livier E. coli UTI --Patient is on IV ceftriaxone E. coli bacteremia --Patient is on ceftriaxone Essential hypertension --Controlled and stable DM 2 --cont sliding scale Acute hypoxic respiratory failure-secondary to volume overload/atrial fib with RVR/Pul edema --Solved CHF, acute on chronic diastolic dysfunction --Resolved Sepsis, present on admission secondary to UTI --Resolved
[2020-03-15] MEDS: DULoxetine 30 MG CAP PO SCH (20:57)
[2020-03-16] MEDS: HYDROcodone/Acetaminophen 10/325 mg Tablet PO SCH ×3 (05:35→20:12)
[2020-03-16] MEDS: Levothyroxine 175 MCG TAB PO SCH (05:35)
[2020-03-16] MEDS: Furosemide 40 MG/4 ML VIAL SLOW IVP SCH ×2 (05:37→12:51)
[2020-03-16] MEDS: HumaLOG 300 UNITS/3 ML VIAL SC PRN ×4 (06:06→20:14)
[2020-03-16] MEDS: Diltiazem HCl SR 60 mg Capsule PO SCH ×2 (08:11→20:12)
[2020-03-16] MEDS: Gabapentin 300 MG CAP PO SCH ×3 (08:11→20:12)
[2020-03-16] MEDS: Docusate 100 MG CAP PO SCH ×2 (08:11→20:11)
[2020-03-16] MEDS: Apixaban 2.5 MG TAB PO SCH ×2 (08:11→20:12)
--- NOTE | 2020-03-16 15:47 | PDOC.HOSPP ---
- Subjective Encounter Date: 03/16/20 Encounter Time: 08:00 Subjective: Patient seen for follow-up regarding atrial fibrillation. She reports feeling well, denies chest pain or shortness of breath. - Objective Vital Signs & Weight: Vital Signs (12 hours) Temp Pulse Resp BP Pulse Ox 03/16/20 11:59 97.7 F 83 17 133/63 96 03/16/20 08:03 98.5 F 79 19 143/66 H 96 Weight Weight 201 lb 12.8 oz Most Recent Monitor Data Heart Rate from ECG 109 NIBP 124/61 NIBP BP-Mean 82 Respiration from ECG 23 SpO2 100 I&O: 03/15/20 03/16/20 03/17/20 06:59 06:59 06:59 Intake Total 1335 944 Output Total 750 1325 Balance 585 -381 Result Diagrams: 03/14/20 06:31 03/14/20 06:01 Additional Labs: Accuchecks 03/16/20 03/16/20 03/15/20 10:51 06:04 20:04 POC Glucose 195 H 268 H 309 H 03/15/20 16:24 POC Glucose 268 H Labs and MAR reviewed by me EKG Reviewed by me: Yes (Atrial fibrillation on telemetry) Hospitalist ROS - Review of Systems Cardiovascular: denies: chest pain, palpitations, orthopnea, paroxysmal noc. dyspnea, edema, light headedness Musculoskeletal: denies: neck pain, shoulder pain, arm pain, back pain, hand pain, leg pain, foot pain - Medication Medications: Active Medications Generic Name Dose Route Start Last Admin Trade Name Freq PRN Reason Stop Dose Admin Acetaminophen 650 mg 03/11/20 14:51 03/15/20 11:05 Acetaminophen 325 Mg Tab PO 650 mg Q4H PRN Administration Headache/Fever/Mild Pain (1-3) Hydrocodone Bitart/Acetaminophen 1 tab 03/12/20 22:00 03/16/20 12:51 Hydrocodone/Acetaminophen 10/325 Mg Tablet PO 1 tab Q8HR ALEX Administration Albuterol/Ipratropium 3 ml 03/12/20 08:17 03/12/20 08:30 Ipratropium/Albuterol Sulfate 3 Ml Neb NEB 3 ml [id number] PRN Administration SOB &/or Wheezing Apixaban 2.5 mg 03/12/20 21:00 03/16/20 08:11 Apixaban 2.5 Mg Tab PO 2.5 mg BID ALEX Administration Clonazepam 0.5 mg 03/12/20 12:37 03/12/20 12:43 Clonazepam 0.5 Mg Tab PO 0.5 mg BIDPRN PRN Administration .AGITATION Diltiazem HCl 60 mg 03/14/20 21:00 03/16/20 08:11 Diltiazem Hcl Sr 60 Mg Capsule PO 60 mg BID ALEX Administration Docusate Sodium 200 mg 03/14/20 09:00 03/16/20 08:11 Docusate 100 Mg Cap PO 200 mg BID ALEX Administration Duloxetine HCl 30 mg 03/12/20 21:00 03/15/20 20:57 Duloxetine 30 Mg Cap PO 30 mg QPM ALEX Administration Furosemide 40 mg 03/12/20 14:00 03/16/20 12:51 Furosemide 40 Mg/4 Ml Vial SLOW IVP 40 mg 0600,1400 ALEX Administration Gabapentin 300 mg 03/12/20 21:00 03/16/20 08:11 Gabapentin 300 Mg Cap PO 300 mg TID ALEX Administration Ceftriaxone Sodium 1 gm/ 100 mls @ 200 mls/hr 03/12/20 17:00 03/15/20 16:46 Sodium Chloride IVPB 100 mls 1700 ALEX Administration Insulin Human Lispro 0 units 03/11/20 15:03 03/16/20 12:50 Humalog 300 Units/3 Ml Vial SC 2 unit .MILD SLIDING SCALE PRN Administration Mild Correctional Scale Insulin Human Lispro 0 units 03/11/20 15:03 03/15/20 20:57 Humalog 300 Units/3 Ml Vial SC 4 unit .BEDTIME SLIDING SC PRN Administration Bedtime Correctional Scale Levothyroxine Sodium 175 mcg 03/13/20 06:00 03/16/20 05:35 Levothyroxine 175 Mcg Tab PO 175 mcg 0600 ALEX Administration Metoprolol Succinate 100 mg 03/13/20 09:00 03/16/20 08:11 Metoprolol Succinate Xl 100 Mg Tab PO 100 mg QAM ALEX Administration Pantoprazole Sodium 40 mg 03/13/20 09:00 03/16/20 08:11 Pantoprazole 40 Mg Tab PO 40 mg QAM ALEX Administration Sodium Chloride 10 ml 03/11/20 14:51 03/16/20 05:37 Flush - Normal Saline 10 Ml Syringe IVF 10 ml PRN PRN Administration Saline Flush - Exam General Appearance: awake alert ENT: normocephalic atraumatic Neck: supple Heart: irregular Respiratory: CTAB Gastrointestinal: soft Skin: no rashes Psychiatric: normal affect, normal behavior Hosp A/P - Plan Assessment/plan: Atrial fib -- rate controlled --Continue diltiazem E. coli UTI --Continue IV ceftriaxone E. coli bacteremia --Continue ceftriaxone Essential hypertension --Controlled and stable DM 2 --cont sliding scale Acute hypoxic respiratory failure-secondary to volume overload/atrial fib with RVR/Pul edema --Resolved CHF, acute on chronic diastolic dysfunction --Resolved Sepsis, present on admission secondary to UTI --Resolved
[2020-03-16] MEDS: cefTRIAXone\\ROCEPHIN 1 GM in Sodium Chloride 0.9% 100 ML IVPB SCH (16:03)
[2020-03-16] MEDS: DULoxetine 30 MG CAP PO SCH (20:12)
[2020-03-17 05:09] LABS: #Eosinphils 0.3 thou/uL (0.0-0.7); #Lymphocytes 1.5 thou/uL (1.20-3.40); #Monocytes 0.9 thou/uL (0.11-0.59); #Neutrophils 5.3 thou/uL (1.40-6.50); %Basophils 0.2 % (0.0-1.0); %Eosinophils 3.6 % (0.0-10.0); %Lymphocytes 18.8 % (21.0-51.0); %Monocytes 11.3 % (0.0-10.0); %Neutrophils 66.2 % (42.0-75.0); Hemoglobin 10.9 g/dL (12.0-16.0); Mean Corpuscular Hemoglobin 28.4 pg (27.0-31.0); Mean Corpuscular Volume 88.7 fL (78.0-98.0); Mean Platelet Volume 8.8 fL (7.4-10.4); Platelet Count 225 thou/uL (130-400); RBC Distribution Width 15.2 % (11.5-14.5); Red Blood Cell (RBC) Count 3.85 mill/uL (4.20-5.40)
[2020-03-17] MEDS: Levothyroxine 175 MCG TAB PO SCH (05:32)
[2020-03-17] MEDS: Furosemide 40 MG/4 ML VIAL SLOW IVP SCH ×2 (05:32→14:30)
[2020-03-17] MEDS: HYDROcodone/Acetaminophen 10/325 mg Tablet PO SCH ×2 (05:32→14:30)
[2020-03-17 05:35] LABS: Anion Gap 15 mmol/L (10-20); BUN (Urea Nitrogen) 37 mg/dL (9.8-20.1); Calc. Creatinine Clearance 42 mL/min (70-130); Calcium 8.2 mg/dL (7.8-10.44); Carbon Dioxide 30 mmol/L (23-31); Chloride 96 mmol/L (98-107); Glucose 239 mg/dL (83-110); Potassium 3.9 mmol/L (3.5-5.1); Sodium 137 mmol/L (136-145)
[2020-03-17] MEDS: HumaLOG 300 UNITS/3 ML VIAL SC PRN ×2 (06:26→12:09)
[2020-03-17] MEDS: Apixaban 2.5 MG TAB PO SCH (08:51)
[2020-03-17] MEDS: Gabapentin 300 MG CAP PO SCH ×2 (08:51→14:29)
[2020-03-17] MEDS: Diltiazem HCl SR 60 mg Capsule PO SCH (08:52)
[2020-03-17] MEDS: Docusate 100 MG CAP PO SCH (08:52)
--- NOTE | 2020-03-17 11:17 | PDOC.DS.DS ---
Provider - Provider Date of Admission: 03/11/20 13:05 Date of Discharge: 03/17/20 Admitting Provider: True Pang DO Consultations: Cardiology (Dr. Zamorano), Pulmonary (Dr. Rivera) Primary Care Physician: Eleonora Larson Course - Hospital Course Hospital Course: Discharge diagnosis: 1. Acute hypoxic respiratory failure 2. Acute on chronic diastolic congestive heart failure NYHA class III 3. Pulmonary edema 4. Sepsis secondary to UTI 5. E. coli UTI 6. E. coli bacteremia 7. A. fib with RVR 8. Acute on chronic stage III renal failure 9. Physical deconditioning Hospital course: Patient is a pleasant 89-year-old lady who was admitted to the hospital on March 11, 2020 for acute hypoxic respiratory failure secondary to CHF exacerbation. She was also found to have UTI. She also had atrial fibrillation with rapid ventricular response. She was seen by cardiology service. She was treated with Cardizem drip, subsequently transitioned to oral Cardizem. Renal function improved. 2 out of 2 blood cultures grew E. coli that was resistant to ampicillin but was otherwise pansensitive. She is being discharged on a total of 2 weeks of IV ceftriaxone. She was also physically deconditioned. She is being discharged to [facility] rehab. Many thanks for allowing me to participate in your patient's care. Please feel free to contact me with any questions or concerns. Discharge destination: Inpatient rehab Total amount of time spent coordinating this discharge: 32 minutes Resuscitation Status: 03/11/20 14:51 Resuscitation Status Routine Co-Sign Provider: Resuscitation Status: FULL: Full Resuscitation - Labs Lab Results: 03/17/20 04:49 03/17/20 04:49 Abnormal Lab Results - Last 48 hrs 03/17/20 04:49: Chloride 96 L, BUN 37 H, Creatinine 1.36 H 03/17/20 04:49: RBC 3.85 L, Hgb 10.9 L, Hct 34.2 L, RDW 15.2 H, Lymphocytes % 18.8 L, Monocytes % 11.3 H, Monocytes # 0.9 H Microbiology - Entire Visit 03/14/20 06:01 Venous blood - Right Hand Blood Culture - Preliminary NO GROWTH AT 48 HOURS 03/14/20 03:58 Venous blood - Right Hand Blood Culture - Preliminary NO GROWTH AT 48 HOURS 03/11/20 11:17 Venous blood - Right Hand Blood Culture - Final Escherichia coli 03/11/20 11:17 Venous blood - Left Arm Blood Culture - Final Escherichia coli - Physical Exam Vitals: Vital Signs (12 hours) Temp Pulse Resp BP Pulse Ox 03/17/20 07:42 98.4 F 80 16 109/61 96 03/17/20 04:00 98.4 F 74 20 124/60 92 L Weight Weight 188 lb 1.6 oz Most Recent Monitor Data Heart Rate from ECG 109 NIBP 124/61 NIBP BP-Mean 82 Respiration from ECG 23 SpO2 100 Physical Exam: The patient was seen and examined on the day of discharge. Plan - Discharge Medications Prescriptions: Furosemide [Lasix] 40 mg PO DAILY-AC #30 tab Home Medications: Medication Instructions Recorded Confirmed Type Gabapentin 300 mg PO TID 09/11/18 03/11/20 History Metoprolol Succinate 100 mg PO QAM 09/11/18 03/11/20 History Pantoprazole Sodium [Protonix] 40 mg PO QAM 09/11/18 03/11/20 History Vit A/Vit C/Vit E/Zinc/Copper 1 tab PO QAM 09/11/18 03/11/20 History [PreserVision AREDS] DULoxetine [Cymbalta] 30 mg PO QPM 04/22/19 03/11/20 History Levothyroxine Sodium [Synthroid] 175 mcg PO DAILY 04/22/19 03/11/20 History HYDROcodone/Acetaminophen 1 each PO Q8H 04/23/19 03/11/20 History [Hydrocodone-Acetamin 10-325 mg] clonazePAM 0.5 mg PO BID PRN 04/29/19 03/11/20 History Docusate [Colace] 200 mg PO BID 03/13/20 03/13/20 History Apixaban [Eliquis] 2.5 mg PO BID tab 03/17/20 Rx Diltiazem HCl [Cardizem SR] 60 mg PO BID cap 03/17/20 Rx Furosemide [Lasix] 40 mg PO DAILY-AC #30 tab 03/17/20 Rx cefTRIAXone\ROCEPHIN [Rocephin] 1 gm IVPB 1700 #8 vial 03/17/20 Rx Allergies: Penicillins Allergy (Verified 03/11/20 17:43) per pt Sulfa (Sulfonamide Antibiotics) Allergy (Verified 03/11/20 17:43) per pt - Discharge Instructions Activity:: Activity as Tolerated Nourishment:: Diabetic Diet, Heart Healthy Diet, Low Sodium Diet - Follow up Plan [facility] ([facility] Eleonora Larson MD [Primary Care Provider] - 3 Days Reina Rice MD [Active] - (Accepting pcp at [facility] Disposition: REHABILITATION INPATIENT
[2020-03-17 12:42] VITALS: BP 139/65; TEMP 98.6
== END 2020-03-17 15:07 | DRG 871 ==
LOC: ERS 10:41 → T4-B 13:05 → CCU 03-12 09:44 → 2NO 03-12 18:26
PROVIDERS: ADMIT Family Medicine; ATTEND Internal Medicine
DX: A41.51 Sepsis due to Escherichia coli [E. coli] (principal); J96.01 Acute respiratory failure with hypoxia; I50.33 Acute on chronic diastolic (congestive) heart failure; N39.0 Urinary tract infection, site not specified; I48.20 Chronic atrial fibrillation, unspecified; N17.9 Acute kidney failure, unspecified; I13.0 Hypertensive heart and chronic kidney disease with heart failure and stage 1 through stage 4 chronic kidney disease, or unspecified chronic kidney disease; Z20.828 Contact with and (suspected) exposure to other viral communicable diseases; F03.90 Unspecified dementia, unspecified severity, without behavioral disturbance, psychotic disturbance, mood disturbance, and anxiety; E78.5 Hyperlipidemia, unspecified; F41.9 Anxiety disorder, unspecified; E86.0 Dehydration; D64.9 Anemia, unspecified; R63.0 Anorexia; I25.10 Atherosclerotic heart disease of native coronary artery without angina pectoris; N18.30 Chronic kidney disease, stage 3 unspecified; R53.81 Other malaise; E11.22 Type 2 diabetes mellitus with diabetic chronic kidney disease; Z79.01 Long term (current) use of anticoagulants; Z85.038 Personal history of other malignant neoplasm of large intestine; Z90.49 Acquired absence of other specified parts of digestive tract; Z87.891 Personal history of nicotine dependence; Z88.0 Allergy status to penicillin; Z88.2 Allergy status to sulfonamides
CPT/HCPCS: 36415; 36416; 51701; 70450; 71045; 71275; 80048; 80053; 81003; 81015; 82550; 82553; 82607; 82728; 82746; 83540; 83550; 83605; 83735; 83880; 84484; 85025; 85379; 85610; 85730; 87040; 87077; 87149; 87186; 93005; 93306; 94640; 94660; 94760; 96365; 96367; J0696; J1940; J1956; J3370; J3490; J7620; Q9967; U0002

== ENCOUNTER 2020-09-01 11:47 | Inpatient (IN) | payer MEDICARE, BC ==
[2020-09-01 12:28] LABS: #Basophils 0.1 thou/uL (0.0-0.2); #Eosinphils 0.3 thou/uL (0.0-0.7); #Lymphocytes 2.5 thou/uL (1.20-3.40); #Monocytes 1.4 thou/uL (0.11-0.59); #Neutrophils 5.5 thou/uL (1.40-6.50); %Basophils 0.6 % (0.0-1.0); %Eosinophils 3.3 % (0.0-10.0); %Lymphocytes 25.1 % (21.0-51.0); %Monocytes 14.5 % (0.0-10.0); %Neutrophils 56.5 % (42.0-75.0); Hemoglobin 11.9 g/dL (12.0-16.0); Mean Corpuscular HGB CONC 32.8 g/dL (32.0-36.0); Mean Corpuscular Hemoglobin 28.9 pg (27.0-31.0); Mean Corpuscular Volume 88.4 fL (78.0-98.0); Platelet Count 249 thou/uL (130-400); Red Blood Cell (RBC) Count 4.11 mill/uL (4.20-5.40); White Blood Cell (WBC) Count 9.8 thou/uL (4.8-10.8)
[2020-09-01 12:51] LABS: ALT (SGPT) Less than 7 U/L (8-55); AST (SGOT) 8 U/L (5-34); Albumin 3.5 g/dL (3.4-4.8); Alkaline Phosphatase 84 U/L (40-110); Anion Gap 13 mmol/L (10-20); BUN (Urea Nitrogen) 27 mg/dL (9.8-20.1); Bilirubin, Total 0.3 mg/dL (0.2-1.2); Calc. Creatinine Clearance 0 mL/min (70-130); Calcium 9.1 mg/dL (7.8-10.44); Carbon Dioxide 24 mmol/L (23-31); Chloride 101 mmol/L (98-107); Globulin 3.4 g/dL (2.4-3.5); Glucose 120 mg/dL (83-110); Lipase Less than 4 U/L (8-78); Potassium 4.7 mmol/L (3.5-5.1); Protein, Total 6.9 g/dL (5.8-8.1); Sodium 133 mmol/L (136-145)
[2020-09-01 14:07] LABS: Bilirubin Negative (Negative); Blood, Urine Trace (Negative); Glucose, Urine (Dipstick) Negative (Negative); Ketone, Urine Negative (Negative); Leukocyte Small (Negative); Nitrite Positive (Negative); Protein, Urine (Dipstick) Negative (Neg-Trace); Specific Gravity, Urine 1.015 (1.005-1.030); Urobilinogen 0.2 mg/dL (Less than 2)
[2020-09-01 14:15] LABS: Clarity Clear (Clear)
[2020-09-01 14:17] LABS: Bacteria/HPF 3+ HPF (None Seen); RBC/HPF 0-3 HPF (0-3); Squamous Epithelial None Seen HPF (0-3)
[2020-09-01] MEDS ORDERED: cefTRIAXone\\ROCEPHIN 1 GM VIAL ONE (15:36)
[2020-09-01] MEDS ORDERED: Acetaminophen 500 MG TAB ONE (16:24)
[2020-09-01] MEDS ORDERED: Acetaminophen 650 MG Suppository PR PRN (17:14)
[2020-09-01] MEDS ORDERED: Ondansetron PF 4 MG/2 ML Vial IVP PRN (17:14)
[2020-09-01] MEDS ORDERED: Ondansetron ODT 4 MG TAB PO PRN (17:14)
[2020-09-01] MEDS ORDERED: Dextrose 50% Abboject 50 ML SYRINGE SLOW IVP PRN (17:15)
[2020-09-01] MEDS ORDERED: Dextrose 5% in Water 1,000 ML IV PRN (17:15)
[2020-09-01] MEDS: Sodium Chloride 0.9% 1,000 ML IV SCH (21:12)
[2020-09-01] MEDS: Apixaban 2.5 MG TAB PO SCH (21:13)
[2020-09-01] MEDS: Acetaminophen 325 MG TAB PO PRN (21:14)
[2020-09-01] MEDS: Diltiazem HCl SR 60 mg Capsule PO SCH (21:27)
[2020-09-01 21:34] VITALS: BMI 28.7
[2020-09-02] MEDS ORDERED: HYDROcodone/Acetaminophen 5/325 mg Tablet PO SCH (04:00)
[2020-09-02] MEDS: Sodium Chloride 0.9% 1,000 ML IV SCH ×2 (05:15→15:31)
[2020-09-02 06:32] LABS: Anion Gap 13 mmol/L (10-20); BUN (Urea Nitrogen) 22 mg/dL (9.8-20.1); Calc. Creatinine Clearance 40 mL/min (70-130); Calcium 8.2 mg/dL (7.8-10.44); Carbon Dioxide 22 mmol/L (23-31); Chloride 104 mmol/L (98-107); Glucose 97 mg/dL (83-110); Potassium 4.3 mmol/L (3.5-5.1); Sodium 135 mmol/L (136-145)
[2020-09-02 06:44] LABS: Band 16 % (5-11); Hemoglobin 10.5 g/dL (12.0-16.0); Hypochromia SLIGHT = 6-15 cells (100X) (0-5/hpf); Lymphocytes 12 % (21-51); MDiff Complete? YES; Mean Corpuscular HGB CONC 31.6 g/dL (32.0-36.0); Mean Corpuscular Hemoglobin 28.1 pg (27.0-31.0); Mean Platelet Volume 7.8 fL (7.4-10.4); Metamyelocyte 1 % (0-0); Monocytes 23 % (0-10); Neutrophil 47 % (42-75); Platelet Count 221 thou/uL (130-400); Platelet Morphology Comment Appears Adequate; RBC Distribution Width 15.1 % (11.5-14.5); Reactive Lymphocytes 1 % (0-10); Red Blood Cell (RBC) Count 3.74 mill/uL (4.20-5.40); White Blood Cell (WBC) Count 8.2 thou/uL (4.8-10.8)
[2020-09-02] MEDS: Apixaban 2.5 MG TAB PO SCH ×2 (08:54→20:33)
[2020-09-02] MEDS: Diltiazem HCl SR 60 mg Capsule PO SCH ×2 (08:54→20:32)
[2020-09-02 11:14] LABS: SARS-CoV-2 PCR by NAA Not Detected (NotDetected)
[2020-09-02] MEDS: Vancomycin HCl 25 MG/ML Oral PO SCH ×2 (11:53→17:46)
[2020-09-02] MEDS: cefTRIAXone\\ROCEPHIN 1 GM in Sodium Chloride 0.9% 100 ML IVPB SCH (15:31)
[2020-09-02] MEDS: Acetaminophen 325 MG TAB PO PRN ×2 (17:42→20:32)
[2020-09-02] MEDS: Insulin Regular 300 UNITS/3 ML VIAL SC PRN (21:28)
[2020-09-03] MEDS: Vancomycin HCl 25 MG/ML Oral PO SCH ×4 (00:38→17:38)
[2020-09-03] MEDS: Diltiazem HCl SR 60 mg Capsule PO SCH ×2 (09:02→21:09)
[2020-09-03] MEDS: Apixaban 2.5 MG TAB PO SCH ×2 (09:02→21:07)
[2020-09-03] MEDS: Sodium Chloride 0.9% 1,000 ML IV SCH (09:03)
[2020-09-03] MEDS: HYDROcodone/Acetaminophen 10/325 mg Tablet PO SCH ×2 (12:36→21:39)
[2020-09-03] MEDS: cefTRIAXone\\ROCEPHIN 1 GM in Sodium Chloride 0.9% 100 ML IVPB SCH (15:43)
[2020-09-03] MEDS: Gabapentin 300 MG CAP PO SCH ×2 (15:48→21:08)
[2020-09-03] MEDS: clonazePAM 0.5 MG TAB PO PRN (15:48)
[2020-09-03] MEDS: HumaLOG 300 UNITS/3 ML VIAL SC SCH ×2 (15:49→21:11)
[2020-09-03] MEDS: DULoxetine 30 MG CAP PO SCH (21:08)
[2020-09-04] MEDS: Sodium Chloride 0.9% 1,000 ML IV SCH ×2 (00:05→05:43)
[2020-09-04] MEDS: Vancomycin HCl 25 MG/ML Oral PO SCH ×4 (05:45→18:26)
[2020-09-04] MEDS: Levothyroxine 175 MCG TAB PO SCH (05:45)
[2020-09-04] MEDS: HYDROcodone/Acetaminophen 10/325 mg Tablet PO SCH ×3 (05:46→22:35)
[2020-09-04] MEDS ORDERED: Furosemide 40 MG TAB PO SCH (07:30)
[2020-09-04] MEDS: Apixaban 2.5 MG TAB PO SCH ×2 (08:48→21:04)
[2020-09-04] MEDS: Gabapentin 300 MG CAP PO SCH ×3 (08:48→20:37)
[2020-09-04] MEDS: Rosuvastatin 10 MG TAB PO SCH (08:48)
[2020-09-04] MEDS: Diltiazem HCl SR 60 mg Capsule PO SCH ×2 (08:49→20:36)
[2020-09-04] MEDS: Lantus 1000 UNITS/10 ML VIAL SC SCH (08:49)
[2020-09-04] MEDS: HumaLOG 300 UNITS/3 ML VIAL SC SCH ×3 (08:49→21:04)
[2020-09-04 09:23] LABS: #Eosinphils 0.4 thou/uL (0.0-0.7); #Lymphocytes 2.5 thou/uL (1.20-3.40); #Monocytes 0.8 thou/uL (0.11-0.59); #Neutrophils 3.4 thou/uL (1.40-6.50); %Basophils 0.5 % (0.0-1.0); %Eosinophils 5.2 % (0.0-10.0); %Lymphocytes 35.5 % (21.0-51.0); %Monocytes 10.7 % (0.0-10.0); Hemoglobin 11.6 g/dL (12.0-16.0); Mean Corpuscular HGB CONC 32.8 g/dL (32.0-36.0); Mean Corpuscular Hemoglobin 29.2 pg (27.0-31.0); Mean Corpuscular Volume 89.2 fL (78.0-98.0); Mean Platelet Volume 7.5 fL (7.4-10.4); Platelet Count 271 thou/uL (130-400); RBC Distribution Width 14.9 % (11.5-14.5); Red Blood Cell (RBC) Count 3.97 mill/uL (4.20-5.40); White Blood Cell (WBC) Count 7.1 thou/uL (4.8-10.8)
[2020-09-04 09:33] LABS: Anion Gap 15 mmol/L (10-20); BUN (Urea Nitrogen) 12 mg/dL (9.8-20.1); Calc. Creatinine Clearance 44 mL/min (70-130); Calcium 8.5 mg/dL (7.8-10.44); Carbon Dioxide 18 mmol/L (23-31); Chloride 107 mmol/L (98-107); Glucose 214 mg/dL (83-110); Sodium 136 mmol/L (136-145)
[2020-09-04] MEDS: cefTRIAXone\\ROCEPHIN 1 GM in Sodium Chloride 0.9% 100 ML IVPB SCH (15:32)
[2020-09-04] MEDS: Cipro 250 MG TAB PO SCH (20:36)
[2020-09-04] MEDS: DULoxetine 30 MG CAP PO SCH (20:36)
[2020-09-04] MEDS: Acetaminophen 325 MG TAB PO PRN (20:38)
[2020-09-04] MEDS: Insulin Regular 300 UNITS/3 ML VIAL SC PRN (21:05)
[2020-09-05] MEDS: Vancomycin HCl 25 MG/ML Oral PO SCH ×4 (00:26→18:16)
[2020-09-05] MEDS: Cipro 250 MG TAB PO SCH ×2 (05:08→20:24)
[2020-09-05] MEDS: Levothyroxine 175 MCG TAB PO SCH (05:08)
[2020-09-05] MEDS: HYDROcodone/Acetaminophen 10/325 mg Tablet PO SCH ×3 (05:08→22:23)
[2020-09-05] MEDS: Apixaban 2.5 MG TAB PO SCH ×2 (10:18→20:22)
[2020-09-05] MEDS: Gabapentin 300 MG CAP PO SCH ×3 (10:19→20:23)
[2020-09-05] MEDS: Rosuvastatin 10 MG TAB PO SCH (10:19)
[2020-09-05] MEDS: HumaLOG 300 UNITS/3 ML VIAL SC SCH ×3 (10:22→20:25)
[2020-09-05] MEDS: Diltiazem HCl SR 60 mg Capsule PO SCH ×2 (10:22→20:22)
[2020-09-05] MEDS: Lantus 1000 UNITS/10 ML VIAL SC SCH (10:23)
[2020-09-05] MEDS: Docusate 100 MG CAP PO PRN (20:23)
[2020-09-05] MEDS: DULoxetine 30 MG CAP PO SCH (20:24)
[2020-09-05] MEDS: clonazePAM 0.5 MG TAB PO PRN (20:25)
[2020-09-06] MEDS: Vancomycin HCl 25 MG/ML Oral PO SCH ×4 (00:28→17:47)
[2020-09-06] MEDS: Levothyroxine 175 MCG TAB PO SCH (05:20)
[2020-09-06] MEDS: HYDROcodone/Acetaminophen 10/325 mg Tablet PO SCH ×3 (05:20→22:14)
[2020-09-06] MEDS: Cipro 250 MG TAB PO SCH ×2 (05:20→20:25)
[2020-09-06] MEDS: Gabapentin 300 MG CAP PO SCH ×3 (07:58→20:24)
[2020-09-06] MEDS: Apixaban 2.5 MG TAB PO SCH ×2 (07:58→20:24)
[2020-09-06] MEDS: HumaLOG 300 UNITS/3 ML VIAL SC SCH ×3 (07:59→20:26)
[2020-09-06] MEDS: Lantus 1000 UNITS/10 ML VIAL SC SCH (07:59)
[2020-09-06] MEDS: Rosuvastatin 10 MG TAB PO SCH (07:59)
[2020-09-06] MEDS: Diltiazem HCl SR 60 mg Capsule PO SCH ×2 (09:25→20:24)
[2020-09-06] MEDS: Insulin Regular 300 UNITS/3 ML VIAL SC PRN ×2 (11:26→17:48)
[2020-09-06] MEDS: DULoxetine 30 MG CAP PO SCH (20:24)
[2020-09-06] MEDS: clonazePAM 0.5 MG TAB PO PRN (20:25)
[2020-09-06] MEDS: Docusate 100 MG CAP PO PRN (20:25)
[2020-09-07] MEDS: Vancomycin HCl 25 MG/ML Oral PO SCH ×4 (00:36→17:21)
[2020-09-07] MEDS: HYDROcodone/Acetaminophen 10/325 mg Tablet PO SCH ×2 (05:29→13:34)
[2020-09-07] MEDS: Cipro 250 MG TAB PO SCH (05:29)
[2020-09-07] MEDS: Levothyroxine 175 MCG TAB PO SCH (05:29)
[2020-09-07] MEDS: Gabapentin 300 MG CAP PO SCH ×2 (08:08→15:39)
[2020-09-07] MEDS: HumaLOG 300 UNITS/3 ML VIAL SC SCH ×2 (08:09→15:39)
[2020-09-07] MEDS: Lantus 1000 UNITS/10 ML VIAL SC SCH (08:09)
[2020-09-07] MEDS: Rosuvastatin 10 MG TAB PO SCH (08:09)
[2020-09-07] MEDS: Diltiazem HCl SR 60 mg Capsule PO SCH (08:09)
[2020-09-07] MEDS: Apixaban 2.5 MG TAB PO SCH (09:25)
[2020-09-07 17:37] VITALS: BP 135/79; TEMP 98.3
== END 2020-09-07 18:06 | disposition home or self-care (01) | DRG 371 ==
LOC: ERS 11:47 → T4-B 15:59 → OBSVTOIN 09-02 09:49
PROVIDERS: ADMIT Internal Medicine; ATTEND Internal Medicine
DX: A04.72 Enterocolitis due to Clostridium difficile, not specified as recurrent (principal); G93.41 Metabolic encephalopathy; N39.0 Urinary tract infection, site not specified; N17.9 Acute kidney failure, unspecified; E87.1 Hypo-osmolality and hyponatremia; E87.2 Acidosis; E78.5 Hyperlipidemia, unspecified; I48.91 Unspecified atrial fibrillation; E03.9 Hypothyroidism, unspecified; K21.9 Gastro-esophageal reflux disease without esophagitis; I12.9 Hypertensive chronic kidney disease with stage 1 through stage 4 chronic kidney disease, or unspecified chronic kidney disease; L89.159 Pressure ulcer of sacral region, unspecified stage; D63.1 Anemia in chronic kidney disease; N28.1 Cyst of kidney, acquired; E11.22 Type 2 diabetes mellitus with diabetic chronic kidney disease; B96.20 Unspecified Escherichia coli [E. coli] as the cause of diseases classified elsewhere; N18.30 Chronic kidney disease, stage 3 unspecified; Z20.822 Contact with and (suspected) exposure to COVID-19; Z85.038 Personal history of other malignant neoplasm of large intestine; Z79.01 Long term (current) use of anticoagulants; Z88.0 Allergy status to penicillin; Z88.2 Allergy status to sulfonamides; Z79.899 Other long term (current) drug therapy; Z90.49 Acquired absence of other specified parts of digestive tract; Z93.3 Colostomy status; Z87.891 Personal history of nicotine dependence
CPT/HCPCS: 36415; 36416; 51702; 74018; 74176; 76770; 80048; 80053; 81003; 81015; 83605; 83690; 84484; 85025; 87040; 87045; 87046; 87077; 87086; 87149; 87186; 87324; 87427; 87449; 93005; 96374; G0378; J0696; J1815; J3490; U0003; U0005

== ENCOUNTER 2020-12-19 02:11 | Observation (INO) | payer MEDICARE, BC ==
[2020-12-19] MEDS ORDERED: methylPREDNISolone Sod Succ/PF 125 MG/2 ML VIAL ONE (02:44)
[2020-12-19 03:35] LABS: #Eosinphils 0.5 thou/uL (0.0-0.7); #Monocytes 0.7 thou/uL (0.11-0.59); #Neutrophils 9.9 thou/uL (1.40-6.50); %Basophils 0.1 % (0.0-1.0); %Eosinophils 3.6 % (0.0-10.0); %Lymphocytes 15.4 % (21.0-51.0); %Monocytes 5.7 % (0.0-10.0); %Neutrophils 75.2 % (42.0-75.0); Hemoglobin 10.5 g/dL (12.0-16.0); Mean Corpuscular HGB CONC 32.1 g/dL (32.0-36.0); Mean Corpuscular Hemoglobin 28.4 pg (27.0-31.0); Mean Corpuscular Volume 88.3 fL (78.0-98.0); Mean Platelet Volume 7.9 fL (7.4-10.4); Platelet Count 274 thou/uL (130-400); RBC Distribution Width 15.6 % (11.5-14.5); Red Blood Cell (RBC) Count 3.69 mill/uL (4.20-5.40); White Blood Cell (WBC) Count 13.1 thou/uL (4.8-10.8)
[2020-12-19 03:52] LABS: ALT (SGPT) 7 U/L (8-55); AST (SGOT) 7 U/L (5-34); Albumin 3.4 g/dL (3.4-4.8); Alkaline Phosphatase 96 U/L (40-110); Anion Gap 16 mmol/L (10-20); BUN (Urea Nitrogen) 36 mg/dL (9.8-20.1); Bilirubin, Total 0.7 mg/dL (0.2-1.2); Calc. Creatinine Clearance 0 mL/min (70-130); Calcium 8.7 mg/dL (7.8-10.44); Carbon Dioxide 26 mmol/L (23-31); Chloride 99 mmol/L (98-107); Globulin 3.1 g/dL (2.4-3.5); Glucose 218 mg/dL (83-110); Potassium 4.6 mmol/L (3.5-5.1); Protein, Total 6.5 g/dL (5.8-8.1); Sodium 136 mmol/L (136-145)
[2020-12-19 03:55] LABS: INR-International Normal Ratio 1.6; Prothrombin Time 19.1 sec (12.0-14.7)
[2020-12-19 03:56] LABS: PTT 54.2 sec (22.9-36.1)
[2020-12-19] MEDS ORDERED: Cefepime 2 GM VIAL ONE (04:45)
[2020-12-19] MEDS ORDERED: Vancomycin 1 GM/200 ML BAG ONE (06:01)
[2020-12-19 06:54] LABS: SARS-CoV-2 NAA Rapid Test Not Detected (NotDetected)
[2020-12-19] MEDS ORDERED: Ondansetron ODT 4 MG TAB SL PRN (10:15)
[2020-12-19] MEDS ORDERED: Ondansetron PF 4 MG/2 ML Vial IVP PRN ×2 (10:15→19:35)
[2020-12-19] MEDS ORDERED: Furosemide 20 MG/2 ML VIAL SLOW IVP SCH (10:30)
[2020-12-19] MEDS ORDERED: clonazePAM 0.5 MG TAB PO PRN (10:34)
[2020-12-19] MEDS ORDERED: Dextrose 50% Abboject 50 ML SYRINGE SLOW IVP PRN ×2 (10:35→22:54)
[2020-12-19] MEDS ORDERED: Dextrose 5% in Water 1,000 ML IV PRN ×2 (10:35→22:54)
[2020-12-19] MEDS ORDERED: Non-Formulary Item 1 EACH (Cholecalciferol (Vitamin D3) [Vitamin D3] 5,000 UNITS Capsule) PO SCH (10:45)
[2020-12-19 10:58] VITALS: BMI 30.2
[2020-12-19] MEDS ORDERED: Cefepime 2 GM in Sodium Chloride 0.9% 100 ML IVPB SCH (13:00)
[2020-12-19] MEDS ORDERED: HumaLOG 300 UNITS/3 ML VIAL SC SCH (13:45)
[2020-12-19] MEDS ORDERED: Lantus 1000 UNITS/10 ML VIAL SC SCH (14:00)
[2020-12-19] MEDS: Gabapentin 300 MG CAP PO SCH ×2 (16:40→23:56)
[2020-12-19] MEDS: HumaLOG 300 UNITS/3 ML VIAL SC PRN (17:38)
[2020-12-19] MEDS: Rosuvastatin 10 MG TAB PO SCH ×2 (21:00→23:49)
[2020-12-19] MEDS: Apixaban 2.5 MG TAB PO SCH ×2 (21:00→23:45)
[2020-12-19] MEDS: DULoxetine 30 MG CAP PO SCH ×2 (21:00→23:49)
[2020-12-19] MEDS: Docusate 100 MG CAP PO SCH ×2 (21:00→23:47)
[2020-12-19] MEDS: Vit A,C & E/Lutein/Minerals Tablet PO SCH ×2 (21:03→23:49)
[2020-12-19] MEDS ORDERED: HumaLOG 300 UNITS/3 ML VIAL SC PRN (22:54)
[2020-12-20] MEDS: HumaLOG 300 UNITS/3 ML VIAL SC PRN (05:54)
[2020-12-20] MEDS ORDERED: Levothyroxine 175 MCG TAB PO SCH (06:00)
[2020-12-20] MEDS ORDERED: HumaLOG 300 UNITS/3 ML VIAL SC PRN ×2 (08:09)
[2020-12-20] MEDS: Apixaban 2.5 MG TAB PO SCH (08:37)
[2020-12-20] MEDS: Docusate 100 MG CAP PO SCH (08:37)
[2020-12-20] MEDS: Gabapentin 300 MG CAP PO SCH (08:38)
[2020-12-20 08:53] LABS: #Lymphocytes 1.3 thou/uL (1.20-3.40); #Monocytes 0.8 thou/uL (0.11-0.59); #Neutrophils 9.8 thou/uL (1.40-6.50); %Monocytes 6.3 % (0.0-10.0); %Neutrophils 82.7 % (42.0-75.0); Hemoglobin 10.7 g/dL (12.0-16.0); Mean Corpuscular HGB CONC 31.5 g/dL (32.0-36.0); Mean Corpuscular Hemoglobin 27.5 pg (27.0-31.0); Mean Corpuscular Volume 87.3 fL (78.0-98.0); Platelet Count 298 thou/uL (130-400); RBC Distribution Width 15.5 % (11.5-14.5); White Blood Cell (WBC) Count 11.9 thou/uL (4.8-10.8)
[2020-12-20] MEDS ORDERED: Vit A,C & E/Lutein/Minerals Tablet PO SCH (09:00)
[2020-12-20] MEDS ORDERED: Lantus 1000 UNITS/10 ML VIAL SC SCH ×2 (09:00)
[2020-12-20 09:14] LABS: ALT (SGPT) Less than 7 U/L (8-55); AST (SGOT) 7 U/L (5-34); Albumin 3.2 g/dL (3.4-4.8); Alkaline Phosphatase 86 U/L (40-110); Anion Gap 16 mmol/L (10-20); BUN (Urea Nitrogen) 32 mg/dL (9.8-20.1); Bilirubin, Total 0.4 mg/dL (0.2-1.2); Calc. Creatinine Clearance 40 mL/min (70-130); Calcium 8.6 mg/dL (7.8-10.44); Carbon Dioxide 24 mmol/L (23-31); Chloride 98 mmol/L (98-107); Globulin 3.2 g/dL (2.4-3.5); Glucose 308 mg/dL (83-110); Magnesium 1.8 mg/dL (1.6-2.6); Phosphorus 2.6 mg/dL (2.3-4.7); Potassium 4.3 mmol/L (3.5-5.1); Protein, Total 6.4 g/dL (5.8-8.1); Sodium 134 mmol/L (136-145)
[2020-12-20 09:19] LABS: Troponin I Less than 0.010 ng/mL (< 0.028)
[2020-12-20 18:06] VITALS: BP 119/55; TEMP 98.3
== END 2020-12-20 14:42 | disposition home or self-care (01) ==
LOC: ERS 02:11 → T4-B 05:06
PROVIDERS: ADMIT Student in an Organized Health Care Education/Training Program; ATTEND Internal Medicine
DX: I48.20 Chronic atrial fibrillation, unspecified (principal); I25.10 Atherosclerotic heart disease of native coronary artery without angina pectoris; I13.0 Hypertensive heart and chronic kidney disease with heart failure and stage 1 through stage 4 chronic kidney disease, or unspecified chronic kidney disease; E11.22 Type 2 diabetes mellitus with diabetic chronic kidney disease; N18.9 Chronic kidney disease, unspecified; I50.32 Chronic diastolic (congestive) heart failure; D63.1 Anemia in chronic kidney disease; J81.1 Chronic pulmonary edema; R06.89 Other abnormalities of breathing; D72.829 Elevated white blood cell count, unspecified; R53.81 Other malaise; J44.9 Chronic obstructive pulmonary disease, unspecified; E03.9 Hypothyroidism, unspecified; E78.5 Hyperlipidemia, unspecified; E78.00 Pure hypercholesterolemia, unspecified; R41.82 Altered mental status, unspecified; E66.9 Obesity, unspecified; Z68.30 Body mass index [BMI] 30.0-30.9, adult; Z79.01 Long term (current) use of anticoagulants; Z79.4 Long term (current) use of insulin; Z79.899 Other long term (current) drug therapy; Z88.0 Allergy status to penicillin; Z88.1 Allergy status to other antibiotic agents; Z88.2 Allergy status to sulfonamides; Z90.49 Acquired absence of other specified parts of digestive tract; Z66 Do not resuscitate; Z20.822 Contact with and (suspected) exposure to COVID-19
CPT/HCPCS: 71045; 80053; 82962 ×2; 83735; 83880; 84100; 84484 ×2; 85025; 85610; 85730; 93005; 93306; 94640; 96365; 96366; 96367; 96375 ×2; 97116 ×2; 97139; 97530; 99285; G0378 ×3; U0002; 36415; 36416; 84443; 93010; J0692; J1815; J1940; J2930; J3370; J3490; J7620

== ENCOUNTER 2021-08-30 16:07 | Inpatient (IN) | payer MEDICARE, BC ==
[2021-08-30 16:53] LABS: Clarity Turbid (Clear); Leukocyte Large Leu/uL (Negative); Nitrite Negative (Negative); Protein, Urine (Dipstick) 100 mg/dL (Neg-Trace); Specific Gravity, Urine 1.018 (1.002-1.036)
[2021-08-30 16:54] LABS: Bilirubin Negative (Negative); Blood, Urine Large (Negative); Glucose, Urine (Dipstick) Negative (Negative); Ketone, Urine Trace mg/dL (Negative); Urobilinogen 0.2 mg/dL (Less than 2)
[2021-08-30 16:55] LABS: Bacteria/HPF 4+ HPF (None Seen); Squamous Epithelial 0-3 HPF (0-3); WBC/HPF Greater than 50 HPF (0-3)
[2021-08-30 17:08] LABS: #Eosinphils 0.4 thou/uL (0.0-0.7); #Neutrophils 5.2 thou/uL (1.40-6.50); %Basophils 0.4 % (0.0-1.0); %Eosinophils 4.3 % (0.0-10.0); %Lymphocytes 31.1 % (21.0-51.0); %Monocytes 10.2 % (0.0-10.0); Hemoglobin 11.8 g/dL (12.0-16.0); Mean Corpuscular Hemoglobin 26.7 pg (27.0-31.0); Mean Corpuscular Volume 83.6 fL (78.0-98.0); Mean Platelet Volume 8.1 fL (7.4-10.4); Platelet Count 259 thou/uL (130-400); RBC Distribution Width 19.1 % (11.5-14.5); Red Blood Cell (RBC) Count 4.41 mill/uL (4.20-5.40); White Blood Cell (WBC) Count 9.6 thou/uL (4.8-10.8)
[2021-08-30 17:31] LABS: Anion Gap 13 mmol/L (10-20); BUN (Urea Nitrogen) 29 mg/dL (9.8-20.1); Calc. Creatinine Clearance 0 mL/min (70-130); Carbon Dioxide 26 mmol/L (23-31); Chloride 100 mmol/L (98-107); Potassium 4.8 mmol/L (3.5-5.1); Sodium 134 mmol/L (136-145)
[2021-08-30 17:32] LABS: ALT (SGPT) Less than 7 U/L (8-55); AST (SGOT) 7 U/L (5-34); Albumin 3.3 g/dL (3.4-4.8); Alkaline Phosphatase 108 U/L (40-110); Bilirubin, Total 0.2 mg/dL (0.2-1.2); Calcium 8.5 mg/dL (7.8-10.44); Globulin 3.3 g/dL (2.4-3.5); Glucose 195 mg/dL (83-110); Protein, Total 6.6 g/dL (5.8-8.1)
[2021-08-30] MEDS ORDERED: cefTRIAXone\\ROCEPHIN 1 GM VIAL ONE (17:34)
[2021-08-30] MEDS ORDERED: Acetaminophen 325 MG TAB PO PRN (18:49)
[2021-08-30] MEDS ORDERED: Ondansetron PF 4 MG/2 ML Vial IVP PRN (18:49)
[2021-08-30] MEDS ORDERED: clonazePAM 0.5 MG TAB PO PRN (18:51)
[2021-08-30] MEDS ORDERED: Meropenem 1 GM in Sodium Chloride 0.9% 100 ML IVPB SCH ×2 (19:15→22:00)
[2021-08-30 19:39] VITALS: BMI 29.3
[2021-08-30] MEDS ORDERED: Heparin 5,000 UNITS/ML VIAL SC SCH (21:00)
[2021-08-30] MEDS: Lactated Ringer's 1,000 ML IV SCH (21:36)
[2021-08-30] MEDS: DULoxetine 30 MG CAP PO SCH (21:37)
[2021-08-30] MEDS: Docusate 100 MG CAP PO SCH (21:37)
[2021-08-30] MEDS: HYDROcodone/Acetaminophen 10/325 mg Tablet PO PRN (21:37)
[2021-08-30] MEDS: Rosuvastatin 10 MG TAB PO SCH (21:38)
[2021-08-30] MEDS: Apixaban 2.5 MG TAB PO SCH (21:38)
[2021-08-30] MEDS: Gabapentin 300 MG CAP PO SCH (21:38)
[2021-08-30] MEDS: Vit A,C & E/Lutein/Minerals Tablet PO SCH (21:51)
[2021-08-31] MEDS: Meropenem 500 MG in Sodium Chloride 0.9% 100 ML IVPB SCH ×2 (02:21→17:45)
[2021-08-31] MEDS: Melatonin 3 MG TAB PO PRN (02:21)
[2021-08-31] MEDS: HYDROcodone/Acetaminophen 10/325 mg Tablet PO PRN ×2 (04:18→16:25)
[2021-08-31] MEDS ORDERED: Dextrose 50% Abboject 50 ML SYRINGE SLOW IVP PRN (05:09)
[2021-08-31] MEDS ORDERED: HumaLOG 300 UNITS/3 ML VIAL SC PRN (05:09)
[2021-08-31] MEDS ORDERED: Dextrose 5% in Water 1,000 ML IV PRN (05:09)
[2021-08-31] MEDS: HumaLOG 300 UNITS/3 ML VIAL SC PRN (05:37)
[2021-08-31] MEDS: Levothyroxine 175 MCG TAB PO SCH (05:37)
[2021-08-31 07:00] LABS: #Eosinphils 0.4 thou/uL (0.0-0.7); #Lymphocytes 2.9 thou/uL (1.20-3.40); #Monocytes 0.9 thou/uL (0.11-0.59); #Neutrophils 4.3 thou/uL (1.40-6.50); %Eosinophils 4.5 % (0.0-10.0); %Lymphocytes 34.2 % (21.0-51.0); %Monocytes 10.6 % (0.0-10.0); %Neutrophils 50.7 % (42.0-75.0); Hemoglobin 10.6 g/dL (12.0-16.0); Mean Corpuscular HGB CONC 31.8 g/dL (32.0-36.0); Mean Corpuscular Volume 84.8 fL (78.0-98.0); Mean Platelet Volume 7.8 fL (7.4-10.4); Platelet Count 233 thou/uL (130-400); RBC Distribution Width 18.9 % (11.5-14.5); Red Blood Cell (RBC) Count 3.95 mill/uL (4.20-5.40); White Blood Cell (WBC) Count 8.5 thou/uL (4.8-10.8)
[2021-08-31 07:26] LABS: Anion Gap 12 mmol/L (10-20); BUN (Urea Nitrogen) 25 mg/dL (9.8-20.1); Calc. Creatinine Clearance 33 mL/min (70-130); Calcium 8.2 mg/dL (7.8-10.44); Carbon Dioxide 27 mmol/L (23-31); Chloride 101 mmol/L (98-107); Glucose 124 mg/dL (83-110); Potassium 4.5 mmol/L (3.5-5.1); Sodium 135 mmol/L (136-145)
[2021-08-31] MEDS: Gabapentin 300 MG CAP PO SCH ×3 (08:58→20:27)
[2021-08-31] MEDS: Apixaban 2.5 MG TAB PO SCH ×2 (08:58→20:27)
[2021-08-31] MEDS: Insulin Glargine 30 UNITS/0.3 ML VIAL SC SCH (08:59)
[2021-08-31] MEDS: Lactated Ringer's 1,000 ML IV SCH ×2 (08:59→21:46)
[2021-08-31] MEDS: Furosemide 40 MG TAB PO SCH (08:59)
[2021-08-31] MEDS: Docusate 100 MG CAP PO SCH ×2 (08:59→20:27)
[2021-08-31] MEDS: Vit A,C & E/Lutein/Minerals Tablet PO SCH (20:26)
[2021-08-31] MEDS: DULoxetine 30 MG CAP PO SCH (20:27)
[2021-08-31] MEDS: Rosuvastatin 10 MG TAB PO SCH (20:27)
[2021-09-01] MEDS: Meropenem 500 MG in Sodium Chloride 0.9% 100 ML IVPB SCH ×2 (02:10→14:51)
[2021-09-01] MEDS: Levothyroxine 175 MCG TAB PO SCH (05:26)
[2021-09-01] MEDS: HumaLOG 300 UNITS/3 ML VIAL SC PRN ×3 (05:27→17:33)
[2021-09-01] MEDS: HYDROcodone/Acetaminophen 10/325 mg Tablet PO PRN (06:04)
[2021-09-01] MEDS: Furosemide 40 MG TAB PO SCH (10:19)
[2021-09-01] MEDS: Docusate 100 MG CAP PO SCH ×2 (10:20→21:29)
[2021-09-01] MEDS: Apixaban 2.5 MG TAB PO SCH ×2 (10:20→21:29)
[2021-09-01] MEDS: Insulin Glargine 30 UNITS/0.3 ML VIAL SC SCH (10:21)
[2021-09-01] MEDS: Lactated Ringer's 1,000 ML IV SCH ×2 (10:23→21:27)
[2021-09-01] MEDS: Rosuvastatin 10 MG TAB PO SCH (21:29)
[2021-09-01] MEDS: Vit A,C & E/Lutein/Minerals Tablet PO SCH (21:29)
[2021-09-01] MEDS: Melatonin 3 MG TAB PO PRN (21:29)
[2021-09-02] MEDS: HYDROcodone/Acetaminophen 10/325 mg Tablet PO PRN ×3 (00:14→21:29)
[2021-09-02] MEDS: Meropenem 500 MG in Sodium Chloride 0.9% 100 ML IVPB SCH ×2 (03:12→15:26)
[2021-09-02] MEDS: Levothyroxine 175 MCG TAB PO SCH (05:49)
[2021-09-02 06:55] LABS: Anion Gap 12 mmol/L (10-20); BUN (Urea Nitrogen) 17 mg/dL (9.8-20.1); Calc. Creatinine Clearance 45 mL/min (70-130); Calcium 8.8 mg/dL (7.8-10.44); Carbon Dioxide 27 mmol/L (23-31); Chloride 101 mmol/L (98-107); Glucose 134 mg/dL (83-110); Potassium 4.1 mmol/L (3.5-5.1); Sodium 136 mmol/L (136-145)
[2021-09-02] MEDS: Furosemide 40 MG TAB PO SCH (09:03)
[2021-09-02] MEDS: Docusate 100 MG CAP PO SCH ×2 (09:03→21:24)
[2021-09-02] MEDS: Apixaban 2.5 MG TAB PO SCH ×2 (09:04→21:25)
[2021-09-02] MEDS: Insulin Glargine 30 UNITS/0.3 ML VIAL SC SCH (09:04)
[2021-09-02] MEDS: HumaLOG 300 UNITS/3 ML VIAL SC PRN ×2 (12:30→17:04)
[2021-09-02] MEDS: Vit A,C & E/Lutein/Minerals Tablet PO SCH (21:24)
[2021-09-02] MEDS: Rosuvastatin 10 MG TAB PO SCH (21:25)
[2021-09-02] MEDS: Nitrofurantoin Monohyd/M-Cryst 100 MG CAP PO SCH (21:25)
[2021-09-03] MEDS: Levothyroxine 175 MCG TAB PO SCH (05:09)
[2021-09-03] MEDS: HYDROcodone/Acetaminophen 10/325 mg Tablet PO PRN ×2 (08:43→20:46)
[2021-09-03] MEDS: Furosemide 40 MG TAB PO SCH (08:44)
[2021-09-03] MEDS: Insulin Glargine 30 UNITS/0.3 ML VIAL SC SCH ×2 (08:44→09:43)
[2021-09-03] MEDS: Nitrofurantoin Monohyd/M-Cryst 100 MG CAP PO SCH (08:44)
[2021-09-03] MEDS: Docusate 100 MG CAP PO SCH ×2 (08:44→20:44)
[2021-09-03] MEDS: Apixaban 2.5 MG TAB PO SCH ×2 (08:44→20:44)
[2021-09-03 10:25] LABS: Hemoglobin 12.5 g/dL (12.0-16.0); Mean Corpuscular HGB CONC 31.5 g/dL (32.0-36.0); Mean Corpuscular Hemoglobin 26.7 pg (27.0-31.0); Mean Platelet Volume 7.6 fL (7.4-10.4); Platelet Count 279 thou/uL (130-400); Red Blood Cell (RBC) Count 4.68 mill/uL (4.20-5.40); White Blood Cell (WBC) Count 13.7 thou/uL (4.8-10.8)
[2021-09-03] MEDS ORDERED: Diltiazem HCl 125 MG in Premix Bag 1 BAG IVPB SCH (10:30)
[2021-09-03 10:55] LABS: Anisocytosis SLIGHT = 6-15 cells (100X) (0-5/hpf); Band 12 % (5-11); Eosinophils 1 % (0-10); Lymphocytes 10 % (21-51); MDiff Complete? YES; Monocytes 3 % (0-10); Neutrophil 72 % (42-75); Platelet Morphology Comment Appears Adequate; Reactive Lymphocytes 2 % (0-10)
[2021-09-03 10:56] LABS: ALT (SGPT) Less than 7 U/L (8-55); AST (SGOT) 10 U/L (5-34); Albumin 3.1 g/dL (3.4-4.8); Alkaline Phosphatase 100 U/L (40-110); Anion Gap 17 mmol/L (10-20); BUN (Urea Nitrogen) 15 mg/dL (9.8-20.1); Bilirubin, Total 0.6 mg/dL (0.2-1.2); Calc. Creatinine Clearance 45 mL/min (70-130); Calcium 8.4 mg/dL (7.8-10.44); Carbon Dioxide 23 mmol/L (23-31); Chloride 101 mmol/L (98-107); Globulin 3.7 g/dL (2.4-3.5); Glucose 215 mg/dL (83-110); Protein, Total 6.8 g/dL (5.8-8.1); Sodium 137 mmol/L (136-145)
[2021-09-03] MEDS: HumaLOG 300 UNITS/3 ML VIAL SC PRN (12:16)
[2021-09-03] MEDS: Sodium Chloride 0.9% 1,000 ML IV SCH (12:16)
[2021-09-03] MEDS: Meropenem 500 MG in Sodium Chloride 0.9% 100 ML IVPB SCH (14:34)
[2021-09-03] MEDS ORDERED: Non-Formulary Item 1 EACH (Diltiazem Hcl [Diltiazem 24hr Cd] 240 MG Cap.Er.24h) PO SCH (16:45)
[2021-09-03] MEDS: Rosuvastatin 10 MG TAB PO SCH (20:44)
[2021-09-03] MEDS: Vit A,C & E/Lutein/Minerals Tablet PO SCH (20:44)
[2021-09-04] MEDS: Meropenem 500 MG in Sodium Chloride 0.9% 100 ML IVPB SCH (00:37)
[2021-09-04] MEDS: Levothyroxine 175 MCG TAB PO SCH (05:43)
[2021-09-04] MEDS: Furosemide 40 MG TAB PO SCH (05:43)
[2021-09-04] MEDS: Docusate 100 MG CAP PO SCH ×3 (10:01→21:35)
[2021-09-04] MEDS: Insulin Glargine 30 UNITS/0.3 ML VIAL SC SCH (10:01)
[2021-09-04] MEDS: Apixaban 2.5 MG TAB PO SCH ×3 (10:02→21:35)
[2021-09-04] MEDS: Sodium Chloride 0.9% 1,000 ML IV SCH (10:02)
[2021-09-04] MEDS: HYDROcodone/Acetaminophen 10/325 mg Tablet PO PRN ×2 (14:28→21:28)
[2021-09-04] MEDS: Meropenem 1 GM in Sodium Chloride 0.9% 100 ML IVPB SCH (15:58)
[2021-09-04 16:21] LABS: #Basophils 0.1 thou/uL (0.0-0.2); #Eosinphils 0.3 thou/uL (0.0-0.7); #Lymphocytes 1.9 thou/uL (1.20-3.40); #Monocytes 0.8 thou/uL (0.11-0.59); #Neutrophils 10.4 thou/uL (1.40-6.50); %Basophils 0.5 % (0.0-1.0); %Eosinophils 2.1 % (0.0-10.0); %Lymphocytes 14.3 % (21.0-51.0); %Monocytes 5.9 % (0.0-10.0); %Neutrophils 77.3 % (42.0-75.0); Mean Corpuscular HGB CONC 31.9 g/dL (32.0-36.0); Mean Corpuscular Volume 84.6 fL (78.0-98.0); Mean Platelet Volume 7.9 fL (7.4-10.4); Platelet Count 241 thou/uL (130-400); RBC Distribution Width 19.3 % (11.5-14.5); Red Blood Cell (RBC) Count 4.06 mill/uL (4.20-5.40); White Blood Cell (WBC) Count 13.5 thou/uL (4.8-10.8)
[2021-09-04 16:39] LABS: Anion Gap 15 mmol/L (10-20); BUN (Urea Nitrogen) 23 mg/dL (9.8-20.1); Calc. Creatinine Clearance 39 mL/min (70-130); Carbon Dioxide 24 mmol/L (23-31); Chloride 102 mmol/L (98-107); Potassium 3.6 mmol/L (3.5-5.1); Sodium 137 mmol/L (136-145)
[2021-09-04 16:40] LABS: Calcium 8.1 mg/dL (7.8-10.44); Glucose 141 mg/dL (83-110)
[2021-09-04] MEDS: Cholecalciferol 1,000 UNITS (25 MCG) TAB PO SCH ×2 (21:23→21:35)
[2021-09-04] MEDS: Vit A,C & E/Lutein/Minerals Tablet PO SCH ×2 (21:23→21:35)
[2021-09-04] MEDS: Rosuvastatin 10 MG TAB PO SCH ×2 (21:24→21:35)
[2021-09-05] MEDS: Sodium Chloride 0.9% 1,000 ML IV SCH (01:56)
[2021-09-05] MEDS: Meropenem 1 GM in Sodium Chloride 0.9% 100 ML IVPB SCH ×2 (01:56→14:59)
[2021-09-05] MEDS: Apixaban 2.5 MG TAB PO SCH ×2 (10:21→20:43)
[2021-09-05] MEDS: Levothyroxine 175 MCG TAB PO SCH (10:22)
[2021-09-05] MEDS: Docusate 100 MG CAP PO SCH ×2 (10:22→20:40)
[2021-09-05] MEDS: Insulin Glargine 30 UNITS/0.3 ML VIAL SC SCH (10:22)
[2021-09-05] MEDS: Furosemide 40 MG TAB PO SCH (10:24)
[2021-09-05 11:41] LABS: #Eosinphils 0.3 thou/uL (0.0-0.7); #Lymphocytes 2.2 thou/uL (1.20-3.40); #Monocytes 0.8 thou/uL (0.11-0.59); #Neutrophils 7.7 thou/uL (1.40-6.50); %Basophils 0.4 % (0.0-1.0); %Eosinophils 2.3 % (0.0-10.0); %Lymphocytes 20.4 % (21.0-51.0); %Neutrophils 69.9 % (42.0-75.0); Hemoglobin 11.7 g/dL (12.0-16.0); Mean Corpuscular HGB CONC 31.6 g/dL (32.0-36.0); Mean Corpuscular Hemoglobin 26.8 pg (27.0-31.0); Mean Platelet Volume 7.2 fL (7.4-10.4); Platelet Count 252 thou/uL (130-400); RBC Distribution Width 18.9 % (11.5-14.5); Red Blood Cell (RBC) Count 4.36 mill/uL (4.20-5.40)
[2021-09-05 12:04] LABS: Anion Gap 17 mmol/L (10-20); BUN (Urea Nitrogen) 19 mg/dL (9.8-20.1); Calc. Creatinine Clearance 48 mL/min (70-130); Calcium 8.5 mg/dL (7.8-10.44); Carbon Dioxide 24 mmol/L (23-31); Chloride 101 mmol/L (98-107); Glucose 149 mg/dL (83-110); Potassium 3.6 mmol/L (3.5-5.1); Sodium 138 mmol/L (136-145)
[2021-09-05] MEDS: HYDROcodone/Acetaminophen 10/325 mg Tablet PO PRN ×2 (12:12→20:44)
[2021-09-05] MEDS: Cholecalciferol 1,000 UNITS (25 MCG) TAB PO SCH (20:39)
[2021-09-05] MEDS: Rosuvastatin 10 MG TAB PO SCH (20:40)
[2021-09-05] MEDS: Vit A,C & E/Lutein/Minerals Tablet PO SCH (20:40)
[2021-09-05] MEDS: Nitrofurantoin Monohyd/M-Cryst 100 MG CAP PO SCH (20:43)
[2021-09-06] MEDS: HYDROcodone/Acetaminophen 10/325 mg Tablet PO PRN (04:39)
[2021-09-06] MEDS: Levothyroxine 175 MCG TAB PO SCH (04:40)
[2021-09-06] MEDS: Furosemide 40 MG TAB PO SCH (10:08)
[2021-09-06] MEDS: Apixaban 2.5 MG TAB PO SCH (10:08)
[2021-09-06] MEDS: Insulin Glargine 30 UNITS/0.3 ML VIAL SC SCH (10:09)
[2021-09-06] MEDS: Nitrofurantoin Monohyd/M-Cryst 100 MG CAP PO SCH (10:09)
[2021-09-06] MEDS: Sodium Chloride 0.9% 1,000 ML IV SCH (10:09)
[2021-09-06] MEDS: Docusate 100 MG CAP PO SCH (10:09)
[2021-09-06 11:19] LABS: Anion Gap 16 mmol/L (10-20); BUN (Urea Nitrogen) 18 mg/dL (9.8-20.1); Calc. Creatinine Clearance 50 mL/min (70-130); Calcium 8.1 mg/dL (7.8-10.44); Carbon Dioxide 25 mmol/L (23-31); Chloride 97 mmol/L (98-107); Glucose 221 mg/dL (83-110); Potassium 3.5 mmol/L (3.5-5.1); Sodium 134 mmol/L (136-145)
[2021-09-06 11:56] LABS: Hemoglobin 12.4 g/dL (12.0-16.0); Mean Corpuscular HGB CONC 31.5 g/dL (32.0-36.0); Mean Corpuscular Hemoglobin 26.9 pg (27.0-31.0); Mean Corpuscular Volume 85.5 fL (78.0-98.0); Mean Platelet Volume 8.2 fL (7.4-10.4); Platelet Count 287 thou/uL (130-400); RBC Distribution Width 19.3 % (11.5-14.5); Red Blood Cell (RBC) Count 4.59 mill/uL (4.20-5.40); White Blood Cell (WBC) Count 18.1 thou/uL (4.8-10.8)
[2021-09-06 12:15] LABS: Band 20 % (5-11); Hypochromia SLIGHT = 6-15 cells (100X) (0-5/hpf); Lymphocytes 8 % (21-51); MDiff Complete? YES; Monocytes 4 % (0-10); Neutrophil 68 % (42-75); Platelet Morphology Comment Appears Adequate; Polychromasia SLIGHT = 2-3 cells (100X) (0-2/hpf)
[2021-09-06 12:42] VITALS: BP 137/63; TEMP 98.5
== END 2021-09-06 14:40 | disposition home or self-care (01) | DRG 682 ==
LOC: ERS 16:07 → T4-A 17:41 → OBSVTOIN 08-31 11:11 → 2NO 09-03 11:40
PROVIDERS: ADMIT Internal Medicine; ATTEND Internal Medicine
DX: N17.9 Acute kidney failure, unspecified (principal); G93.41 Metabolic encephalopathy; N39.0 Urinary tract infection, site not specified; I13.0 Hypertensive heart and chronic kidney disease with heart failure and stage 1 through stage 4 chronic kidney disease, or unspecified chronic kidney disease; Z20.822 Contact with and (suspected) exposure to COVID-19; E78.5 Hyperlipidemia, unspecified; E11.22 Type 2 diabetes mellitus with diabetic chronic kidney disease; K21.9 Gastro-esophageal reflux disease without esophagitis; E03.9 Hypothyroidism, unspecified; D63.1 Anemia in chronic kidney disease; E83.42 Hypomagnesemia; I25.10 Atherosclerotic heart disease of native coronary artery without angina pectoris; E66.9 Obesity, unspecified; I50.9 Heart failure, unspecified; I25.5 Ischemic cardiomyopathy; N18.30 Chronic kidney disease, stage 3 unspecified; F41.9 Anxiety disorder, unspecified; F03.90 Unspecified dementia, unspecified severity, without behavioral disturbance, psychotic disturbance, mood disturbance, and anxiety; I48.0 Paroxysmal atrial fibrillation; Z79.01 Long term (current) use of anticoagulants; Z87.440 Personal history of urinary (tract) infections; Z93.3 Colostomy status; Z88.0 Allergy status to penicillin; Z88.1 Allergy status to other antibiotic agents; Z88.2 Allergy status to sulfonamides; Z68.29 Body mass index [BMI] 29.0-29.9, adult; Z87.891 Personal history of nicotine dependence; Z79.899 Other long term (current) drug therapy; Z79.4 Long term (current) use of insulin; Z79.890 Hormone replacement therapy
CPT/HCPCS: 36415; 36416; 80048; 80053; 81001; 81015; 82140; 83605; 83880; 84443; 84484; 85025; 87077; 87086; 87186; 96365; 96375; G0378; J0696; J1815; J2185; J3490; J7050; J7120; U0003; U0005

== ENCOUNTER 2021-11-04 12:30 | Emergency (ER) | payer MEDICARE, BC ==
[2021-11-04 13:56] LABS: #Eosinphils 0.4 thou/uL (0.0-0.7); #Lymphocytes 2.4 thou/uL (1.20-3.40); #Monocytes 0.8 thou/uL (0.11-0.59); #Neutrophils 5.8 thou/uL (1.40-6.50); %Basophils 0.3 % (0.0-1.0); %Eosinophils 4.6 % (0.0-10.0); %Lymphocytes 25.6 % (21.0-51.0); %Monocytes 8.4 % (0.0-10.0); %Neutrophils 61.2 % (42.0-75.0); Hemoglobin 12.1 g/dL (12.0-16.0); Mean Corpuscular HGB CONC 30.6 g/dL (32.0-36.0); Mean Corpuscular Hemoglobin 26.1 pg (27.0-31.0); Mean Corpuscular Volume 85.2 fL (78.0-98.0); Mean Platelet Volume 7.6 fL (7.4-10.4); Platelet Count 339 thou/uL (130-400); RBC Distribution Width 17.3 % (11.5-14.5); Red Blood Cell (RBC) Count 4.65 mill/uL (4.20-5.40); White Blood Cell (WBC) Count 9.4 thou/uL (4.8-10.8)
[2021-11-04 14:15] LABS: ALT (SGPT) 10 U/L (8-55); AST (SGOT) 14 U/L (5-34); Albumin 3.1 g/dL (3.4-4.8); Alkaline Phosphatase 102 U/L (40-110); Anion Gap 19 mmol/L (10-20); BUN (Urea Nitrogen) 35 mg/dL (9.8-20.1); Bilirubin, Total 0.2 mg/dL (0.2-1.2); Calc. Creatinine Clearance 0 mL/min (70-130); Carbon Dioxide 24 mmol/L (23-31); Chloride 99 mmol/L (98-107); Estimated GFR 28; Globulin 4.3 g/dL (2.4-3.5); Glucose 70 mg/dL (83-110); Potassium 4.5 mmol/L (3.5-5.1); Protein, Total 7.4 g/dL (5.8-8.1); Sodium 137 mmol/L (136-145)
[2021-11-04 17:49] LABS: Bacteria/HPF 2+ HPF (None Seen); Bilirubin Negative (Negative); Blood, Urine 3+ (Negative); Glucose, Urine (Dipstick) 30 mg/dL (Negative); Ketone, Urine Negative (Negative); Leukocyte 500 Leu/uL (Negative); Nitrite Negative (Negative); Protein, Urine (Dipstick) 70 mg/dL (Neg-Trace); RBC/HPF Greater than 50 HPF (0-3); Specific Gravity, Urine 1.012 (1.002-1.036); Squamous Epithelial None Seen HPF (0-3); Urobilinogen Normal mg/dL (Less than 2); WBC/HPF Greater than 50 HPF (0-3); pH, Urine 5.5 (5.0-9.0)
[2021-11-04 17:50] LABS: Clarity Cloudy (Clear)
== END 2021-11-04 19:00 | disposition home or self-care (01) ==
LOC: ERS 12:30
DX: N30.00 Acute cystitis without hematuria (principal); I48.91 Unspecified atrial fibrillation; E11.9 Type 2 diabetes mellitus without complications; E78.5 Hyperlipidemia, unspecified; E78.00 Pure hypercholesterolemia, unspecified; I11.0 Hypertensive heart disease with heart failure; I50.9 Heart failure, unspecified; E03.9 Hypothyroidism, unspecified; Z79.4 Long term (current) use of insulin; Z79.899 Other long term (current) drug therapy; Z79.01 Long term (current) use of anticoagulants
CPT/HCPCS: 36415; 80053; 81003; 81015; 85025; 87077; 87086; 87186; 93005

== ENCOUNTER 2021-11-23 11:32 | Inpatient (IN) | payer MEDICARE, BC ==
[2021-11-23 13:22] LABS: #Eosinphils 0.5 thou/uL (0.0-0.7); #Lymphocytes 2.6 thou/uL (1.20-3.40); #Monocytes 0.9 thou/uL (0.11-0.59); #Neutrophils 5.5 thou/uL (1.40-6.50); %Basophils 0.1 % (0.0-1.0); %Eosinophils 5.4 % (0.0-10.0); %Lymphocytes 27.7 % (21.0-51.0); %Monocytes 8.9 % (0.0-10.0); %Neutrophils 57.8 % (42.0-75.0); Hemoglobin 10.5 g/dL (12.0-16.0); Mean Corpuscular HGB CONC 31.3 g/dL (32.0-36.0); Mean Corpuscular Hemoglobin 26.4 pg (27.0-31.0); Mean Corpuscular Volume 84.3 fL (78.0-98.0); Mean Platelet Volume 7.8 fL (7.4-10.4); Platelet Count 262 thou/uL (130-400); RBC Distribution Width 18.2 % (11.5-14.5); Red Blood Cell (RBC) Count 3.98 mill/uL (4.20-5.40); White Blood Cell (WBC) Count 9.5 thou/uL (4.8-10.8)
[2021-11-23 14:00] LABS: ALT (SGPT) 11 U/L (8-55); AST (SGOT) 11 U/L (5-34); Albumin 2.8 g/dL (3.4-4.8); Alkaline Phosphatase 109 U/L (40-110); Anion Gap 14 mmol/L (10-20); BUN (Urea Nitrogen) 30 mg/dL (9.8-20.1); Bilirubin, Total 0.3 mg/dL (0.2-1.2); CK (CPK) 10 U/L (29-168); Calc. Creatinine Clearance 0 mL/min (70-130); Calcium 8.5 mg/dL (7.8-10.44); Carbon Dioxide 26 mmol/L (23-31); Chloride 100 mmol/L (98-107); Estimated GFR 32; Globulin 3.9 g/dL (2.4-3.5); Glucose 154 mg/dL (83-110); Lipase 6 U/L (8-78); Potassium 4.2 mmol/L (3.5-5.1); Protein, Total 6.7 g/dL (5.8-8.1); Sodium 136 mmol/L (136-145)
[2021-11-23] MEDS ORDERED: Iopamidol-370 76% 500 ML 1 ML ONE (14:48)
[2021-11-23 15:19] LABS: SARS-CoV-2 NAA Rapid Test Not Detected (NotDetected)
[2021-11-23 17:22] LABS: Bacteria/HPF 3+ HPF (None Seen); Bilirubin Negative (Negative); Blood, Urine 3+ (Negative); Clarity Extra Turbid (Clear); Glucose, Urine (Dipstick) Normal (Negative); Ketone, Urine Negative (Negative); Leukocyte 500 Leu/uL (Negative); Nitrite Negative (Negative); Protein, Urine (Dipstick) 70 mg/dL (Neg-Trace); Specific Gravity, Urine 1.017 (1.002-1.036); Urobilinogen Normal mg/dL (Less than 2); WBC/HPF Greater than 50 HPF (0-3)
[2021-11-23] MEDS ORDERED: Acetaminophen 325 MG TAB PO PRN (17:28)
[2021-11-23] MEDS ORDERED: Ondansetron ODT 4 MG TAB PO PRN (17:28)
[2021-11-23] MEDS ORDERED: HYDROcodone/Acetaminophen 10/325 mg Tablet PO PRN (17:28)
[2021-11-23] MEDS ORDERED: Senokot S 8.6-50 MG TAB PO PRN (17:28)
[2021-11-23 17:30] LABS: Pregnancy Test - Urine (BHCG) Negative (Negative); Pregu Control Background? CLEAR/WHITE (CLR/WHITE); Pregu Control Bar Appear? YES (CONTROL BAR); Specific Gravity 1.017 (1.002-1.036)
[2021-11-23 17:36] LABS: Squamous Epithelial 0-3 HPF (0-3)
[2021-11-23] MEDS ORDERED: cefTRIAXone\\ROCEPHIN 2 GM VIAL ONE (17:57)
[2021-11-23] MEDS ORDERED: Fentanyl 100 MCG/2 ML VIAL ONE (18:06)
[2021-11-23] MEDS: Sodium Chloride 0.9% 1,000 ML IV SCH (20:50)
[2021-11-23] MEDS: Famotidine/PF 20 mg/2ml Vial SLOW IVP SCH (22:23)
[2021-11-23 22:45] VITALS: BMI 28.4
[2021-11-24 00:43] LABS: Bilirubin Negative (Negative); Blood, Urine 3+ (Negative); Clarity Extra Turbid (Clear); Glucose, Urine (Dipstick) Normal (Negative); Ketone, Urine Negative (Negative); Leukocyte 500 Leu/uL (Negative); Nitrite Negative (Negative); Protein, Urine (Dipstick) 30 mg/dL (Neg-Trace); Specific Gravity, Urine 1.018 (1.002-1.036); Urobilinogen Normal mg/dL (Less than 2)
[2021-11-24 00:59] LABS: Squamous Epithelial 0-3 HPF (0-3)
[2021-11-24 01:00] LABS: Bacteria/HPF None Seen HPF (None Seen)
[2021-11-24 05:46] LABS: #Eosinphils 0.6 thou/uL (0.0-0.7); #Lymphocytes 2.1 thou/uL (1.20-3.40); #Monocytes 0.7 thou/uL (0.11-0.59); %Basophils 0.1 % (0.0-1.0); %Eosinophils 5.9 % (0.0-10.0); %Lymphocytes 20.3 % (21.0-51.0); %Neutrophils 66.7 % (42.0-75.0); Hemoglobin 10.4 g/dL (12.0-16.0); Mean Corpuscular HGB CONC 30.7 g/dL (32.0-36.0); Mean Corpuscular Hemoglobin 26.2 pg (27.0-31.0); Mean Corpuscular Volume 85.4 fL (78.0-98.0); Platelet Count 285 thou/uL (130-400); RBC Distribution Width 18.4 % (11.5-14.5); Red Blood Cell (RBC) Count 3.96 mill/uL (4.20-5.40); White Blood Cell (WBC) Count 10.5 thou/uL (4.8-10.8)
[2021-11-24 06:16] LABS: ALT (SGPT) 13 U/L (8-55); AST (SGOT) 24 U/L (5-34); Albumin 2.7 g/dL (3.4-4.8); Alkaline Phosphatase 109 U/L (40-110); Anion Gap 17 mmol/L (10-20); BUN (Urea Nitrogen) 22 mg/dL (9.8-20.1); Bilirubin, Total 0.3 mg/dL (0.2-1.2); Calc. Creatinine Clearance 41 mL/min (70-130); Calcium 8.4 mg/dL (7.8-10.44); Carbon Dioxide 23 mmol/L (23-31); Chloride 102 mmol/L (98-107); Estimated GFR 45; Globulin 4.9 g/dL (2.4-3.5); Glucose 106 mg/dL (83-110); Potassium 4.8 mmol/L (3.5-5.1); Protein, Total 7.6 g/dL (5.8-8.1); Sodium 137 mmol/L (136-145)
[2021-11-24] MEDS ORDERED: clonazePAM 0.5 MG TAB PO PRN (09:02)
[2021-11-24] MEDS ORDERED: HYDROcodone/Acetaminophen 10/325 mg Tablet PO PRN (09:08)
[2021-11-24] MEDS: Sodium Chloride 0.9% 1,000 ML IV SCH ×2 (10:18→21:38)
[2021-11-24] MEDS ORDERED: Fleet Enema 133 ML BOT FS SCH (11:45)
[2021-11-24] MEDS: HYDROcodone/Acetaminophen 5/325 mg Tablet PO PRN (16:09)
[2021-11-24] MEDS ORDERED: Polyethylene Glycol 3350 17 GM Packet PO SCH (16:45)
[2021-11-24] MEDS: cefTRIAXone\\ROCEPHIN 1 GM in Sodium Chloride 0.9% 100 ML IVPB SCH (17:28)
[2021-11-24] MEDS: Polyethylene Glycol 3350 17 GM Packet PO SCH (21:36)
[2021-11-24] MEDS: Famotidine/PF 20 mg/2ml Vial SLOW IVP SCH (21:36)
[2021-11-24] MEDS: Gabapentin 300 MG CAP PO SCH (21:37)
[2021-11-24] MEDS: Apixaban 5 MG TAB PO SCH (21:37)
[2021-11-24] MEDS: Docusate 100 MG CAP PO SCH (21:37)
[2021-11-24] MEDS: Cholecalciferol 1,000 UNITS (25 MCG) TAB PO SCH (21:37)
[2021-11-24] MEDS: DULoxetine 30 MG CAP PO SCH (21:37)
[2021-11-24] MEDS: Rosuvastatin 10 MG TAB PO SCH (21:38)
[2021-11-24] MEDS: Vit A,C & E/Lutein/Minerals Tablet PO SCH (21:38)
[2021-11-25] MEDS: Levothyroxine 150 MCG TAB PO SCH (06:19)
[2021-11-25] MEDS: Apixaban 5 MG TAB PO SCH ×2 (08:20→20:22)
[2021-11-25] MEDS: Docusate 100 MG CAP PO SCH ×2 (08:20→20:25)
[2021-11-25] MEDS: Gabapentin 300 MG CAP PO SCH ×2 (08:20→20:16)
[2021-11-25] MEDS: Empagliflozin 10 MG TAB PO SCH (08:21)
[2021-11-25] MEDS: Insulin Glargine 30 UNITS/0.3 ML VIAL SC SCH (08:22)
[2021-11-25] MEDS: Polyethylene Glycol 3350 17 GM Packet PO SCH ×2 (08:22→20:24)
[2021-11-25] MEDS: Sodium Chloride 0.9% 1,000 ML IV SCH ×2 (12:27→13:30)
[2021-11-25] MEDS: cefTRIAXone\\ROCEPHIN 1 GM in Sodium Chloride 0.9% 100 ML IVPB SCH (17:27)
[2021-11-25] MEDS: Vit A,C & E/Lutein/Minerals Tablet PO SCH (20:19)
[2021-11-25] MEDS: HYDROcodone/Acetaminophen 5/325 mg Tablet PO PRN (20:20)
[2021-11-25] MEDS: Cholecalciferol 1,000 UNITS (25 MCG) TAB PO SCH (20:22)
[2021-11-25] MEDS: DULoxetine 30 MG CAP PO SCH (20:22)
[2021-11-25] MEDS: Rosuvastatin 10 MG TAB PO SCH (20:23)
[2021-11-25] MEDS: Famotidine/PF 20 mg/2ml Vial SLOW IVP SCH (21:13)
[2021-11-26] MEDS: Levothyroxine 150 MCG TAB PO SCH (05:40)
[2021-11-26] MEDS: Gabapentin 300 MG CAP PO SCH ×2 (09:04→20:08)
[2021-11-26] MEDS: Docusate 100 MG CAP PO SCH ×2 (09:05→20:08)
[2021-11-26] MEDS: Apixaban 5 MG TAB PO SCH ×2 (09:05→20:08)
[2021-11-26] MEDS: Insulin Glargine 30 UNITS/0.3 ML VIAL SC SCH (09:06)
[2021-11-26] MEDS: Polyethylene Glycol 3350 17 GM Packet PO SCH ×2 (09:12→20:09)
[2021-11-26] MEDS: Empagliflozin 10 MG TAB PO SCH (09:13)
[2021-11-26] MEDS: HYDROcodone/Acetaminophen 5/325 mg Tablet PO PRN ×2 (11:38→20:15)
[2021-11-26] MEDS: Sodium Chloride 0.9% 1,000 ML IV SCH ×2 (12:23→16:26)
[2021-11-26] MEDS: Cholecalciferol 1,000 UNITS (25 MCG) TAB PO SCH (20:07)
[2021-11-26] MEDS: Rosuvastatin 10 MG TAB PO SCH (20:08)
[2021-11-26] MEDS: DULoxetine 30 MG CAP PO SCH (20:08)
[2021-11-26] MEDS: Vit A,C & E/Lutein/Minerals Tablet PO SCH (20:08)
[2021-11-26] MEDS: Cefdinir 300 MG CAP PO SCH (21:05)
[2021-11-27 01:44] LABS: Anion Gap 14 mmol/L (10-20); BUN (Urea Nitrogen) 7 mg/dL (9.8-20.1); Calc. Creatinine Clearance 59 mL/min (70-130); Carbon Dioxide 22 mmol/L (23-31); Chloride 109 mmol/L (98-107); Estimated GFR 68; Glucose 105 mg/dL (83-110); Magnesium 1.3 mg/dL (1.6-2.6); Potassium 3.7 mmol/L (3.5-5.1); Sodium 141 mmol/L (136-145)
[2021-11-27] MEDS ORDERED: Metoprolol Tartrate 5 MG/5 ML VIAL IVP SCH (01:45)
[2021-11-27] MEDS ORDERED: Magnesium 2 GM/50 ML(in water) 2 GM in Premix Bag 1 BAG IVPB SCH (02:45)
[2021-11-27] MEDS: Sodium Chloride 0.9% 1,000 ML IV SCH ×3 (05:00→21:29)
[2021-11-27] MEDS: Levothyroxine 150 MCG TAB PO SCH (05:04)
[2021-11-27] MEDS: Empagliflozin 10 MG TAB PO SCH (08:53)
[2021-11-27] MEDS: Docusate 100 MG CAP PO SCH ×2 (08:53→21:13)
[2021-11-27] MEDS: Polyethylene Glycol 3350 17 GM Packet PO SCH ×2 (08:53→21:16)
[2021-11-27] MEDS: Cefdinir 300 MG CAP PO SCH ×2 (08:54→21:14)
[2021-11-27] MEDS: Insulin Glargine 30 UNITS/0.3 ML VIAL SC SCH (08:54)
[2021-11-27] MEDS: Gabapentin 300 MG CAP PO SCH ×2 (08:54→21:14)
[2021-11-27] MEDS: Apixaban 5 MG TAB PO SCH ×2 (08:54→21:15)
[2021-11-27] MEDS ORDERED: Diltiazem HCl 125 MG in Premix Bag 1 BAG IVPB SCH ×2 (09:00→10:27)
[2021-11-27] MEDS ORDERED: Diltiazem 125 MG in Sodium Chloride 0.9% 100 ML IVPB SCH (11:45)
[2021-11-27] MEDS: HYDROcodone/Acetaminophen 5/325 mg Tablet PO PRN ×2 (14:15→21:31)
[2021-11-27] MEDS ORDERED: Magnesium Sulfate In Water 4 GM in Premix Bag 1 BAG IVPB SCH (21:00)
[2021-11-27] MEDS ORDERED: Electrolyte Replacement Protocol 1 EACH FS SCH (21:00)
[2021-11-27] MEDS: Vit A,C & E/Lutein/Minerals Tablet PO SCH (21:13)
[2021-11-27] MEDS: Rosuvastatin 10 MG TAB PO SCH (21:14)
[2021-11-27] MEDS: Cholecalciferol 1,000 UNITS (25 MCG) TAB PO SCH (21:14)
[2021-11-27] MEDS: DULoxetine 30 MG CAP PO SCH (21:15)
[2021-11-28] MEDS: Levothyroxine 150 MCG TAB PO SCH (05:29)
[2021-11-28] MEDS ORDERED: Insulin Glargine 30 UNITS/0.3 ML VIAL SC SCH (09:00)
[2021-11-28] MEDS: Gabapentin 300 MG CAP PO SCH ×2 (09:05→20:36)
[2021-11-28] MEDS: Docusate 100 MG CAP PO SCH ×2 (09:05→20:37)
[2021-11-28] MEDS: Apixaban 5 MG TAB PO SCH ×2 (09:05→20:36)
[2021-11-28] MEDS: Polyethylene Glycol 3350 17 GM Packet PO SCH ×2 (09:05→20:39)
[2021-11-28] MEDS: Empagliflozin 10 MG TAB PO SCH (09:05)
[2021-11-28] MEDS: Cefdinir 300 MG CAP PO SCH ×2 (09:05→20:36)
[2021-11-28 09:08] LABS: Anion Gap 13 mmol/L (10-20); BUN (Urea Nitrogen) 7 mg/dL (9.8-20.1); Calc. Creatinine Clearance 59 mL/min (70-130); Carbon Dioxide 21 mmol/L (23-31); Chloride 108 mmol/L (98-107); Estimated GFR 74; Glucose 90 mg/dL (83-110); Magnesium 1.6 mg/dL (1.6-2.6); Potassium 3.4 mmol/L (3.5-5.1); Sodium 139 mmol/L (136-145)
[2021-11-28] MEDS ORDERED: Ondansetron PF 4 MG/2 ML Vial IVP PRN (09:55)
[2021-11-28] MEDS ORDERED: Potassium Chloride 20 MEQ TAB PO SCH (10:00)
[2021-11-28] MEDS ORDERED: Magnesium 2 GM/50 ML(in water) 2 GM in Premix Bag 1 BAG IVPB SCH (10:00)
[2021-11-28] MEDS ORDERED: Furosemide 20 MG/2 ML VIAL SLOW IVP SCH (12:30)
[2021-11-28] MEDS: Diltiazem HCl 125 MG in Premix Bag 1 BAG IVPB SCH (14:25)
[2021-11-28] MEDS: Vit A,C & E/Lutein/Minerals Tablet PO SCH (20:36)
[2021-11-28] MEDS: Rosuvastatin 10 MG TAB PO SCH (20:36)
[2021-11-28] MEDS: Cholecalciferol 1,000 UNITS (25 MCG) TAB PO SCH (20:36)
[2021-11-28] MEDS: Famotidine/PF 20 mg/2ml Vial SLOW IVP SCH (20:37)
[2021-11-28] MEDS: DULoxetine 30 MG CAP PO SCH (20:37)
[2021-11-29] MEDS: Diltiazem HCl 125 MG in Premix Bag 1 BAG IVPB SCH (01:26)
[2021-11-29 05:14] LABS: Anion Gap 14 mmol/L (10-20); BUN (Urea Nitrogen) 8 mg/dL (9.8-20.1); Calc. Creatinine Clearance 55 mL/min (70-130); Carbon Dioxide 21 mmol/L (23-31); Chloride 106 mmol/L (98-107); Estimated GFR 67; Glucose 126 mg/dL (83-110); Magnesium 1.8 mg/dL (1.6-2.6); Potassium 3.9 mmol/L (3.5-5.1); Sodium 137 mmol/L (136-145)
[2021-11-29] MEDS: Sodium Chloride 0.9% 1,000 ML IV SCH (05:21)
[2021-11-29] MEDS: Levothyroxine 150 MCG TAB PO SCH (05:26)
[2021-11-29] MEDS ORDERED: Magnesium 2 GM/50 ML(in water) 2 GM in Premix Bag 1 BAG IVPB SCH (08:00)
[2021-11-29] MEDS: Gabapentin 300 MG CAP PO SCH ×2 (08:33→20:16)
[2021-11-29] MEDS: Empagliflozin 10 MG TAB PO SCH (08:35)
[2021-11-29] MEDS: Apixaban 5 MG TAB PO SCH ×2 (08:35→20:16)
[2021-11-29] MEDS: Docusate 100 MG CAP PO SCH ×3 (08:35→20:18)
[2021-11-29] MEDS: Cefdinir 300 MG CAP PO SCH ×2 (08:35→20:16)
[2021-11-29] MEDS: Polyethylene Glycol 3350 17 GM Packet PO SCH ×2 (08:35→20:18)
[2021-11-29] MEDS ORDERED: Diltiazem HCl 125 MG in Premix Bag 1 BAG IVPB SCH (08:56)
[2021-11-29] MEDS ORDERED: Nystatin Powder 15 GM BOT TOP PRN (19:40)
[2021-11-29] MEDS: DULoxetine 30 MG CAP PO SCH (20:16)
[2021-11-29] MEDS: Cholecalciferol 1,000 UNITS (25 MCG) TAB PO SCH (20:16)
[2021-11-29] MEDS: Rosuvastatin 10 MG TAB PO SCH (20:16)
[2021-11-29] MEDS: Vit A,C & E/Lutein/Minerals Tablet PO SCH (20:16)
[2021-11-29] MEDS: Famotidine/PF 20 mg/2ml Vial SLOW IVP SCH (20:17)
[2021-11-30] MEDS: Levothyroxine 150 MCG TAB PO SCH (05:21)
[2021-11-30] MEDS ORDERED: Diltiazem HCl 125 MG in Premix Bag 1 BAG IVPB SCH (06:23)
[2021-11-30 07:29] LABS: #Eosinphils 0.3 thou/uL (0.0-0.7); #Lymphocytes 2.3 thou/uL (1.20-3.40); #Monocytes 0.9 thou/uL (0.11-0.59); #Neutrophils 5.9 thou/uL (1.40-6.50); %Basophils 0.2 % (0.0-1.0); %Eosinophils 3.3 % (0.0-10.0); %Lymphocytes 24.4 % (21.0-51.0); %Monocytes 9.8 % (0.0-10.0); %Neutrophils 62.4 % (42.0-75.0); Mean Corpuscular HGB CONC 31.7 g/dL (32.0-36.0); Mean Corpuscular Volume 85.2 fL (78.0-98.0); Mean Platelet Volume 7.5 fL (7.4-10.4); Platelet Count 323 thou/uL (130-400); RBC Distribution Width 19.3 % (11.5-14.5); Red Blood Cell (RBC) Count 3.69 mill/uL (4.20-5.40); White Blood Cell (WBC) Count 9.4 thou/uL (4.8-10.8)
[2021-11-30 07:39] LABS: Anion Gap 15 mmol/L (10-20); BUN (Urea Nitrogen) 7 mg/dL (9.8-20.1); Calc. Creatinine Clearance 50 mL/min (70-130); Calcium 8.1 mg/dL (7.8-10.44); Carbon Dioxide 22 mmol/L (23-31); Chloride 105 mmol/L (98-107); Estimated GFR 60; Glucose 127 mg/dL (83-110); Potassium 3.6 mmol/L (3.5-5.1); Sodium 138 mmol/L (136-145)
[2021-11-30] MEDS ORDERED: Magnesium 2 GM/50 ML(in water) 2 GM in Premix Bag 1 BAG IVPB SCH (09:00)
[2021-11-30] MEDS: Polyethylene Glycol 3350 17 GM Packet PO SCH (09:21)
[2021-11-30] MEDS: Gabapentin 300 MG CAP PO SCH (09:22)
[2021-11-30] MEDS: Empagliflozin 10 MG TAB PO SCH (09:22)
[2021-11-30] MEDS: Cefdinir 300 MG CAP PO SCH (09:23)
[2021-11-30] MEDS: Apixaban 5 MG TAB PO SCH (09:23)
[2021-11-30 19:33] VITALS: BP 153/79; TEMP 98.7
== END 2021-11-30 19:30 | disposition home or self-care (01) | DRG 393 ==
LOC: ERS 11:32 → SURG B 17:15 → 2NO 11-27 04:19
PROVIDERS: ADMIT Internal Medicine; ATTEND Internal Medicine
DX: K43.3 Parastomal hernia with obstruction, without gangrene (principal); I50.33 Acute on chronic diastolic (congestive) heart failure; I48.19 Other persistent atrial fibrillation; N13.6 Pyonephrosis; N17.9 Acute kidney failure, unspecified; Z20.822 Contact with and (suspected) exposure to COVID-19; K59.00 Constipation, unspecified; I11.0 Hypertensive heart disease with heart failure; E11.40 Type 2 diabetes mellitus with diabetic neuropathy, unspecified; E03.9 Hypothyroidism, unspecified; E78.5 Hyperlipidemia, unspecified; D64.9 Anemia, unspecified; F03.90 Unspecified dementia, unspecified severity, without behavioral disturbance, psychotic disturbance, mood disturbance, and anxiety; F41.9 Anxiety disorder, unspecified; E83.42 Hypomagnesemia; E78.00 Pure hypercholesterolemia, unspecified; Z88.1 Allergy status to other antibiotic agents; Z88.0 Allergy status to penicillin; Z88.2 Allergy status to sulfonamides; Z79.899 Other long term (current) drug therapy; Z79.890 Hormone replacement therapy; Z79.01 Long term (current) use of anticoagulants; Z79.4 Long term (current) use of insulin; Z79.84 Long term (current) use of oral hypoglycemic drugs; Z85.038 Personal history of other malignant neoplasm of large intestine; Z87.440 Personal history of urinary (tract) infections; Z90.49 Acquired absence of other specified parts of digestive tract; Z74.01 Bed confinement status
CPT/HCPCS: 36415; 36416; 71045; 74018; 74177; 80048; 80053; 81001; 81003; 81015; 81025; 82140; 82550; 83605; 83690; 83735; 84443; 85025; 87040; 87077; 87086; 87186; 87811; 93005; 93010; 94640; 96361; 96365; J0696; J1815; J1940; J3010; J3475; J3490; J7050; J7620; Q9967; S0028; U0002

== ENCOUNTER 2022-03-05 20:36 | Inpatient (IN) | payer MEDICARE, BC ==
[2022-03-05 22:11] LABS: INR-International Normal Ratio 2.4; PTT 55.9 sec (22.9-36.1); Prothrombin Time 27.1 sec (12.0-14.7)
[2022-03-05 22:16] LABS: ALT (SGPT) Less than 7 U/L (8-55); AST (SGOT) 7 U/L (5-34); Albumin 2.9 g/dL (3.4-4.8); Alkaline Phosphatase 82 U/L (40-110); Anion Gap 16 mmol/L (10-20); BUN (Urea Nitrogen) 54 mg/dL (9.8-20.1); Bilirubin, Total 0.3 mg/dL (0.2-1.2); Calc. Creatinine Clearance 0 mL/min (70-130); Calcium 8.6 mg/dL (7.8-10.44); Carbon Dioxide 12 mmol/L (23-31); Chloride 113 mmol/L (98-107); Estimated GFR 22; Globulin 3.4 g/dL (2.4-3.5); Glucose 62 mg/dL (83-110); Potassium 4.9 mmol/L (3.5-5.1); Protein, Total 6.3 g/dL (5.8-8.1); Sodium 136 mmol/L (136-145)
[2022-03-05 22:24] LABS: Band 10 % (5-11); Hemoglobin 11.1 g/dL (12.0-16.0); Hypochromia SLIGHT = 6-15 cells (100X) (0-5/hpf); Lymphocytes 25 % (21-51); MDiff Complete? YES; Mean Corpuscular HGB CONC 31.9 g/dL (32.0-36.0); Mean Corpuscular Hemoglobin 30.2 pg (27.0-31.0); Mean Corpuscular Volume 94.6 fl (78.0-98.0); Mean Platelet Volume 9.4 fL (7.4-10.4); Monocytes 8 % (0-10); Neutrophil 54 % (42-75); Nucleated RBC 2 % (0); Platelet Count 144 10x3/uL (130-400); Platelet Morphology Comment Appears Adequate; RBC Distribution Width 22.4 % (11.5-14.5); Reactive Lymphocytes 3 % (0-10); Red Blood Cell (RBC) Count 3.69 mill/uL (4.20-5.40); White Blood Cell (WBC) Count 28.6 10x3/uL (4.8-10.8)
[2022-03-05] MEDS ORDERED: Diltiazem 125 MG/25 ML ONE (22:26)
[2022-03-05] MEDS ORDERED: Vancomycin 1 GM/200 ML (FROZEN) BAG ONE (22:56)
[2022-03-05] MEDS ORDERED: CEFAZOLIN 2 GM VIAL ONE (23:54)
[2022-03-06 00:45] LABS: Lactic Acid 1.4 mmol/L (0.5-2.2)
[2022-03-06] MEDS ORDERED: Cefepime 2 GM VIAL ONE (00:58)
[2022-03-06] MEDS ORDERED: Ondansetron PF 4 MG/2 ML Vial IVP PRN (02:06)
[2022-03-06] MEDS ORDERED: Acetaminophen 325 MG TAB PO PRN (02:06)
[2022-03-06] MEDS ORDERED: Dextrose 5% in Water 1,000 ML IV PRN (02:11)
[2022-03-06] MEDS ORDERED: Dextrose 50% Abboject 50 ML SYRINGE SLOW IVP PRN (02:11)
[2022-03-06] MEDS ORDERED: Dextrose 5 %-0.45 % NaCl 1,000 ML IV SCH (02:15)
[2022-03-06] MEDS ORDERED: Dextrose 5 % And 0.9 % NaCl 1,000 ML IV SCH ×2 (02:15→03:39)
[2022-03-06] MEDS ORDERED: Vancomycin Dose by Levels Sliding Scale (Wt <71) FS SCH (02:45)
[2022-03-06 05:10] LABS: Anion Gap 15 mmol/L (10-20); BUN (Urea Nitrogen) 54 mg/dL (9.8-20.1); Calc. Creatinine Clearance 16 mL/min (70-130); Calcium 8.2 mg/dL (7.8-10.44); Carbon Dioxide 15 mmol/L (23-31); Chloride 111 mmol/L (98-107); Estimated GFR 22; Glucose 128 mg/dL (83-110); Sodium 136 mmol/L (136-145)
[2022-03-06 05:15] LABS: Band 11 % (5-11); Hemoglobin 11.1 g/dL (12.0-16.0); Lymphocytes 2 % (21-51); MDiff Complete? YES; Mean Corpuscular HGB CONC 30.3 g/dL (32.0-36.0); Mean Corpuscular Hemoglobin 29.3 pg (27.0-31.0); Mean Corpuscular Volume 96.5 fl (78.0-98.0); Mean Platelet Volume 9.9 fL (7.4-10.4); Monocytes 12 % (0-10); Neutrophil 75 % (42-75); Platelet Count 142 10x3/uL (130-400); Platelet Morphology Comment Appears Adequate; RBC Distribution Width 22.7 % (11.5-14.5); RBC Morphology Normal; Red Blood Cell (RBC) Count 3.78 mill/uL (4.20-5.40); White Blood Cell (WBC) Count 27.1 10x3/uL (4.8-10.8)
[2022-03-06 05:16] LABS: Troponin I 0.021 ng/mL (< 0.028)
[2022-03-06 06:36] LABS: SARS-CoV-2 NAA Rapid Test Not Detected (NotDetected)
[2022-03-06 08:48] LABS: Troponin I 0.015 ng/mL (< 0.028)
[2022-03-06] MEDS ORDERED: Apixaban 5 MG TAB PO SCH (09:00)
[2022-03-06] MEDS ORDERED: Heparin 5,000 UNITS/ML VIAL SC SCH (09:00)
[2022-03-06] MEDS ORDERED: clonazePAM 0.5 MG TAB PO PRN (09:17)
[2022-03-06] MEDS ORDERED: Cefepime 1 GM in Sodium Chloride 0.9% 100 ML IVPB SCH (13:00)
[2022-03-06] MEDS ORDERED: Cefepime 1 GM VIAL ONE (13:00)
[2022-03-06] MEDS: Cefepime 1 GM in Sodium Chloride 0.9% 100 ML IVPB SCH (13:02)
[2022-03-06] MEDS ORDERED: Diltiazem 125 MG/25 ML ONE (15:34)
[2022-03-06 18:56] VITALS: BMI 22.6
[2022-03-06 20:31] LABS: Vancomycin, Random 12.3 ug/mL (See Comment)
[2022-03-06] MEDS ORDERED: Vancomycin HCl 500 MG in Sodium Chloride 0.9% 100 ML IV SCH (21:30)
[2022-03-06] MEDS: Cholecalciferol 1,000 UNITS (25 MCG) TAB PO SCH (22:01)
[2022-03-06] MEDS: Gabapentin 300 MG CAP PO SCH (22:02)
[2022-03-06] MEDS: Rosuvastatin 10 MG TAB PO SCH (22:02)
[2022-03-06] MEDS: DULoxetine 30 MG CAP PO SCH (22:03)
[2022-03-06] MEDS: Apixaban 5 MG TAB PO SCH (22:03)
[2022-03-07] MEDS: metroNIDAZOLE 500 MG in Premix Bag 1 BAG IVPB SCH ×3 (00:15→16:37)
[2022-03-07] MEDS ORDERED: Diltiazem 125 MG in Sodium Chloride 0.9% 100 ML IVPB SCH (00:45)
[2022-03-07] MEDS ORDERED: Electrolyte Replacement Protocol 1 EACH FS SCH (01:00)
[2022-03-07] MEDS: Cholecalciferol 1,000 UNITS (25 MCG) TAB PO SCH ×2 (04:30→21:24)
[2022-03-07 04:41] LABS: #Lymphocytes 1.1 thou/uL (1.20-3.40); #Monocytes 0.9 thou/uL (0.11-0.59); #Neutrophils 18.7 thou/uL (1.40-6.50); %Eosinophils 0.1 % (0.0-10.0); %Lymphocytes 5.3 % (21.0-51.0); %Monocytes 4.3 % (0.0-10.0); %Neutrophils 90.2 % (42.0-75.0); Hemoglobin 10.1 g/dL (12.0-16.0); Mean Corpuscular HGB CONC 31.1 g/dL (32.0-36.0); Mean Corpuscular Volume 96.4 fl (78.0-98.0); Platelet Count 138 10x3/uL (130-400); RBC Distribution Width 22.4 % (11.5-14.5); Red Blood Cell (RBC) Count 3.37 mill/uL (4.20-5.40); White Blood Cell (WBC) Count 20.7 10x3/uL (4.8-10.8)
[2022-03-07] MEDS: Rosuvastatin 10 MG TAB PO SCH ×2 (04:43→21:26)
[2022-03-07 05:13] LABS: Anion Gap 17 mmol/L (10-20); BUN (Urea Nitrogen) 50 mg/dL (9.8-20.1); Calc. Creatinine Clearance 20 mL/min (70-130); Calcium 8.4 mg/dL (7.8-10.44); Carbon Dioxide 12 mmol/L (23-31); Chloride 115 mmol/L (98-107); Estimated GFR 24; Glucose 228 mg/dL (83-110); Magnesium 1.6 mg/dL (1.6-2.6); Potassium 4.7 mmol/L (3.5-5.1); Sodium 139 mmol/L (136-145)
[2022-03-07] MEDS ORDERED: Magnesium 2 GM/50 ML(in water) 2 GM in Premix Bag 1 BAG IVPB SCH (08:00)
[2022-03-07] MEDS: Levothyroxine 150 MCG TAB PO SCH (08:11)
[2022-03-07] MEDS: Apixaban 5 MG TAB PO SCH ×2 (10:33→21:25)
[2022-03-07] MEDS: Gabapentin 300 MG CAP PO SCH ×2 (10:33→21:26)
[2022-03-07] MEDS: Furosemide 40 MG TAB PO SCH (10:35)
[2022-03-07] MEDS: Cefepime 1 GM in Sodium Chloride 0.9% 100 ML IVPB SCH (15:36)
[2022-03-07 15:59] LABS: Bacteria/HPF 2+ HPF (None Seen); Bilirubin Negative (Negative); Blood, Urine 3+ (Negative); CAUTI Indications for Culture Dysuria,urgency,freq; Clarity Extra Turbid (Clear); Glucose, Urine (Dipstick) Normal (Negative); Ketone, Urine Trace mg/dL (Negative); Leukocyte 500 Leu/uL (Negative); Nitrite Negative (Negative); Protein, Urine (Dipstick) 70 mg/dL (Neg-Trace); RBC/HPF Greater than 50 HPF (0-3); Specific Gravity, Urine 1.019 (1.002-1.036); Squamous Epithelial None Seen HPF (0-3); Urobilinogen Normal mg/dL (Less than 2); pH, Urine 5.5 (5.0-9.0)
[2022-03-07 16:05] LABS: WBC/HPF 21-50 HPF (0-3); Yeast-Budding 1+ HPF (None Seen)
[2022-03-07 16:06] LABS: Urine Culture Reflex Yes Yes; Yeast-Hyphae 1+ HPF (None Seen)
[2022-03-07 20:26] LABS: Vancomycin, Random 15.8 ug/mL (See Comment)
[2022-03-07] MEDS: DULoxetine 30 MG CAP PO SCH (21:24)
[2022-03-07] MEDS ORDERED: Vancomycin HCl 250 MG in Sodium Chloride 0.9% 100 ML IV SCH (21:30)
[2022-03-08] MEDS: metroNIDAZOLE 500 MG in Premix Bag 1 BAG IVPB SCH ×2 (01:58→09:09)
[2022-03-08 05:09] LABS: Hemoglobin 10.8 g/dL (12.0-16.0); Mean Corpuscular HGB CONC 32.1 g/dL (32.0-36.0); Mean Corpuscular Hemoglobin 30.6 pg (27.0-31.0); Mean Corpuscular Volume 95.3 fl (78.0-98.0); Mean Platelet Volume 10.3 fL (7.4-10.4); Platelet Count 108 10x3/uL (130-400); RBC Distribution Width 22.5 % (11.5-14.5); Red Blood Cell (RBC) Count 3.53 mill/uL (4.20-5.40); White Blood Cell (WBC) Count 17.4 10x3/uL (4.8-10.8)
[2022-03-08 05:26] LABS: Anion Gap 16 mmol/L (10-20); BUN (Urea Nitrogen) 50 mg/dL (9.8-20.1); Calc. Creatinine Clearance 19 mL/min (70-130); Calcium 8.5 mg/dL (7.8-10.44); Carbon Dioxide 12 mmol/L (23-31); Chloride 115 mmol/L (98-107); Estimated GFR 23; Glucose 319 mg/dL (83-110); Potassium 4.4 mmol/L (3.5-5.1); Sodium 139 mmol/L (136-145)
[2022-03-08 05:35] LABS: #Basophils 0.1 thou/uL (0.0-0.2); #Eosinphils 0.1 thou/uL (0.0-0.7); #Lymphocytes 1.3 thou/uL (1.20-3.40); #Monocytes 0.8 thou/uL (0.11-0.59); #Neutrophils 15.2 thou/uL (1.40-6.50); %Basophils 0.7 % (0.0-1.0); %Eosinophils 0.3 % (0.0-10.0); %Lymphocytes 7.3 % (21.0-51.0); %Monocytes 4.6 % (0.0-10.0); %Neutrophils 87.1 % (42.0-75.0); Anisocytosis MODERATE=16-30 cells (100X) (0-5/hpf); Elliptocytes SLIGHT = 2-5 cells (100X) (0-1/hpf); MDiff Complete? YES; Platelet Morphology Comment Appears Decreased; Target Cells SLIGHT = 2-5 cells (100X) (0-1/hpf); Tear Drops SLIGHT = 2-5 cells (100X) (0-1/hpf)
[2022-03-08] MEDS: Levothyroxine 150 MCG TAB PO SCH (05:41)
[2022-03-08] MEDS: Furosemide 40 MG TAB PO SCH (09:09)
[2022-03-08] MEDS: Gabapentin 300 MG CAP PO SCH ×2 (10:03→20:54)
[2022-03-08] MEDS: Apixaban 5 MG TAB PO SCH ×2 (10:05→20:53)
[2022-03-08] MEDS ORDERED: Acetaminophen 325 MG TAB PO PRN (11:44)
[2022-03-08] MEDS: HumaLOG 300 UNITS/3 ML VIAL SC PRN ×2 (11:46→18:19)
[2022-03-08] MEDS ORDERED: Morphine 4 MG/ML VIAL SLOW IVP PRN (11:57)
[2022-03-08] MEDS ORDERED: Dexamethasone 4 mg/ml Vial SLOW IVP SCH (13:45)
[2022-03-08] MEDS: Clindamycin/D5W 600 MG in Premix Bag 1 BAG IVPB SCH ×2 (15:06→22:44)
[2022-03-08] MEDS: Cefepime 1 GM in Sodium Chloride 0.9% 100 ML IVPB SCH (15:06)
[2022-03-08] MEDS ORDERED: Bisacodyl 5 MG TAB PO PRN (18:30)
[2022-03-08] MEDS: DULoxetine 30 MG CAP PO SCH (20:53)
[2022-03-08] MEDS: Rosuvastatin 10 MG TAB PO SCH (20:53)
[2022-03-08] MEDS: Cholecalciferol 1,000 UNITS (25 MCG) TAB PO SCH (20:53)
[2022-03-08] MEDS: Docusate 100 MG CAP PO SCH (20:53)
[2022-03-08 21:37] LABS: Vancomycin, Random 15.6 ug/mL (See Comment)
[2022-03-08] MEDS ORDERED: Vancomycin HCl 250 MG in Sodium Chloride 0.9% 100 ML IV SCH (22:30)
[2022-03-08] MEDS ORDERED: Vancomycin HCl 500 MG in Sodium Chloride 0.9% 100 ML IV SCH (22:30)
[2022-03-09 04:39] LABS: Anion Gap 15 mmol/L (10-20); BUN (Urea Nitrogen) 48 mg/dL (9.8-20.1); CRP (Inflammatory) 10.54 mg/dL (= or < 0.5); Calc. Creatinine Clearance 22 mL/min (70-130); Calcium 8.3 mg/dL (7.8-10.44); Carbon Dioxide 12 mmol/L (23-31); Chloride 112 mmol/L (98-107); Estimated GFR 28; Glucose 147 mg/dL (83-110); Magnesium 1.9 mg/dL (1.6-2.6); Potassium 3.7 mmol/L (3.5-5.1); Sodium 135 mmol/L (136-145)
[2022-03-09 05:37] LABS: #Eosinphils 0.1 thou/uL (0.0-0.7); #Lymphocytes 1.5 thou/uL (1.20-3.40); #Monocytes 0.6 thou/uL (0.11-0.59); %Basophils 0.1 % (0.0-1.0); %Eosinophils 1.1 % (0.0-10.0); %Lymphocytes 11.9 % (21.0-51.0); %Monocytes 5.1 % (0.0-10.0); %Neutrophils 81.9 % (42.0-75.0); Anisocytosis SLIGHT = 6-15 cells (100X) (0-5/hpf); Hemoglobin 10.1 g/dL (12.0-16.0); MDiff Complete? YES; Mean Corpuscular HGB CONC 30.4 g/dL (32.0-36.0); Mean Corpuscular Hemoglobin 30.2 pg (27.0-31.0); Mean Corpuscular Volume 99.5 fl (78.0-98.0); Mean Platelet Volume 9.4 fL (7.4-10.4); Platelet Count 119 10x3/uL (130-400); Platelet Morphology Comment Appears Decreased; RBC Distribution Width 22.5 % (11.5-14.5); Red Blood Cell (RBC) Count 3.34 mill/uL (4.20-5.40); White Blood Cell (WBC) Count 12.2 10x3/uL (4.8-10.8)
[2022-03-09] MEDS: Clindamycin/D5W 600 MG in Premix Bag 1 BAG IVPB SCH ×3 (06:04→22:09)
[2022-03-09] MEDS: Levothyroxine 150 MCG TAB PO SCH (06:04)
[2022-03-09] MEDS: Apixaban 5 MG TAB PO SCH ×2 (09:31→22:07)
[2022-03-09] MEDS: Gabapentin 300 MG CAP PO SCH ×2 (09:32→22:08)
[2022-03-09] MEDS: Docusate 100 MG CAP PO SCH ×2 (09:33→22:08)
[2022-03-09] MEDS: Dexamethasone 4 mg/ml Vial SLOW IVP SCH (09:33)
[2022-03-09] MEDS: Cefepime 1 GM in Sodium Chloride 0.9% 100 ML IVPB SCH (14:48)
[2022-03-09] MEDS: HumaLOG 300 UNITS/3 ML VIAL SC PRN (17:48)
[2022-03-09] MEDS: Cholecalciferol 1,000 UNITS (25 MCG) TAB PO SCH (22:07)
[2022-03-09] MEDS: DULoxetine 30 MG CAP PO SCH (22:08)
[2022-03-09] MEDS: Rosuvastatin 10 MG TAB PO SCH (22:08)
[2022-03-09 22:21] LABS: Vancomycin, Random 15.2 ug/mL (See Comment)
[2022-03-09] MEDS ORDERED: Vancomycin HCl 500 MG in Sodium Chloride 0.9% 100 ML IVPB SCH (23:00)
[2022-03-10 05:07] LABS: #Lymphocytes 0.7 thou/uL (1.20-3.40); #Monocytes 0.4 thou/uL (0.11-0.59); #Neutrophils 8.3 thou/uL (1.40-6.50); %Basophils 0.2 % (0.0-1.0); %Eosinophils 0.2 % (0.0-10.0); %Lymphocytes 7.8 % (21.0-51.0); %Monocytes 3.7 % (0.0-10.0); %Neutrophils 88.1 % (42.0-75.0); Hemoglobin 9.6 g/dL (12.0-16.0); Mean Corpuscular HGB CONC 32.3 g/dL (32.0-36.0); Mean Corpuscular Hemoglobin 30.7 pg (27.0-31.0); Mean Corpuscular Volume 95.2 fl (78.0-98.0); Mean Platelet Volume 10.4 fL (7.4-10.4); Platelet Count 99 10x3/uL (130-400); RBC Distribution Width 22.1 % (11.5-14.5); Red Blood Cell (RBC) Count 3.11 mill/uL (4.20-5.40); White Blood Cell (WBC) Count 9.5 10x3/uL (4.8-10.8)
[2022-03-10 05:11] LABS: Anion Gap 16 mmol/L (10-20); BUN (Urea Nitrogen) 46 mg/dL (9.8-20.1); Calc. Creatinine Clearance 23 mL/min (70-130); Calcium 8.1 mg/dL (7.8-10.44); Carbon Dioxide 14 mmol/L (23-31); Chloride 111 mmol/L (98-107); Estimated GFR 29; Glucose 243 mg/dL (83-110); Potassium 3.9 mmol/L (3.5-5.1); Sodium 137 mmol/L (136-145)
[2022-03-10] MEDS: Clindamycin/D5W 600 MG in Premix Bag 1 BAG IVPB SCH ×2 (05:48→13:36)
[2022-03-10] MEDS: Levothyroxine 150 MCG TAB PO SCH (05:56)
[2022-03-10] MEDS: HumaLOG 300 UNITS/3 ML VIAL SC PRN ×3 (08:19→18:31)
[2022-03-10] MEDS: Gabapentin 300 MG CAP PO SCH ×2 (09:56→22:00)
[2022-03-10] MEDS: Docusate 100 MG CAP PO SCH ×2 (09:56→22:00)
[2022-03-10] MEDS: Fluconazole In NaCl,Iso-Osm 100 MG, Admixture Fee 1 EACH in Premix Bag 1 BAG IVPB SCH (09:57)
[2022-03-10] MEDS: Apixaban 5 MG TAB PO SCH ×2 (09:57→22:00)
[2022-03-10] MEDS: Dexamethasone 4 mg/ml Vial SLOW IVP SCH (09:57)
[2022-03-10] MEDS: Cefepime 1 GM in Sodium Chloride 0.9% 100 ML IVPB SCH (12:46)
[2022-03-10] MEDS: Rosuvastatin 10 MG TAB PO SCH (21:59)
[2022-03-10] MEDS: Cholecalciferol 1,000 UNITS (25 MCG) TAB PO SCH (21:59)
[2022-03-10] MEDS: DULoxetine 30 MG CAP PO SCH (22:00)
[2022-03-10] MEDS: Insulin Glargine 30 UNITS/0.3 ML VIAL SC SCH (22:01)
[2022-03-11 00:05] LABS: Vancomycin, Random 17.9 ug/mL (See Comment)
[2022-03-11] MEDS ORDERED: Vancomycin HCl 500 MG in Sodium Chloride 0.9% 100 ML IVPB SCH (01:00)
[2022-03-11] MEDS: HumaLOG 300 UNITS/3 ML VIAL SC PRN ×3 (01:42→18:44)
[2022-03-11 05:16] LABS: #Eosinphils 0.1 thou/uL (0.0-0.7); #Lymphocytes 0.8 thou/uL (1.20-3.40); #Monocytes 0.5 thou/uL (0.11-0.59); #Neutrophils 9.7 thou/uL (1.40-6.50); %Basophils 0.2 % (0.0-1.0); %Eosinophils 0.7 % (0.0-10.0); %Lymphocytes 7.6 % (21.0-51.0); %Monocytes 4.2 % (0.0-10.0); %Neutrophils 87.3 % (42.0-75.0); Hemoglobin 9.2 g/dL (12.0-16.0); Mean Corpuscular HGB CONC 32.3 g/dL (32.0-36.0); Mean Corpuscular Volume 95.7 fl (78.0-98.0); Mean Platelet Volume 10.6 fL (7.4-10.4); Platelet Count 107 10x3/uL (130-400); RBC Distribution Width 22.2 % (11.5-14.5); Red Blood Cell (RBC) Count 2.98 mill/uL (4.20-5.40); White Blood Cell (WBC) Count 11.1 10x3/uL (4.8-10.8)
[2022-03-11 05:22] LABS: Anion Gap 14 mmol/L (10-20); BUN (Urea Nitrogen) 48 mg/dL (9.8-20.1); Calc. Creatinine Clearance 22 mL/min (70-130); Carbon Dioxide 15 mmol/L (23-31); Chloride 111 mmol/L (98-107); Estimated GFR 27; Glucose 309 mg/dL (83-110); Magnesium 1.7 mg/dL (1.6-2.6); Potassium 3.5 mmol/L (3.5-5.1); Sodium 136 mmol/L (136-145)
[2022-03-11] MEDS: Levothyroxine 150 MCG TAB PO SCH (06:23)
[2022-03-11] MEDS ORDERED: Magnesium 2 GM/50 ML(in water) 2 GM in Premix Bag 1 BAG IVPB SCH (08:00)
[2022-03-11] MEDS ORDERED: Potassium Chloride 20 MEQ TAB PO SCH (08:00)
[2022-03-11] MEDS: Gabapentin 300 MG CAP PO SCH ×2 (10:26→21:17)
[2022-03-11] MEDS: Apixaban 5 MG TAB PO SCH ×2 (10:28→21:16)
[2022-03-11] MEDS: Docusate 100 MG CAP PO SCH ×2 (10:30→21:17)
[2022-03-11] MEDS: Insulin Glargine 30 UNITS/0.3 ML VIAL SC SCH ×2 (10:32→22:38)
[2022-03-11] MEDS: Dexamethasone 4 mg/ml Vial SLOW IVP SCH (10:34)
[2022-03-11] MEDS: Fluconazole In NaCl,Iso-Osm 100 MG, Admixture Fee 1 EACH in Premix Bag 1 BAG IVPB SCH (10:34)
[2022-03-11] MEDS ORDERED: Ciprofloxacin 500 MG TAB PO SCH (16:15)
[2022-03-11] MEDS: DAPTOmycin 500 MG in Sodium Chloride 0.9% 100 ML IVPB SCH (17:19)
[2022-03-11] MEDS: Cholecalciferol 1,000 UNITS (25 MCG) TAB PO SCH (21:16)
[2022-03-11] MEDS: DULoxetine 30 MG CAP PO SCH (21:17)
[2022-03-11] MEDS: metroNIDAZOLE 500 MG TAB PO SCH (21:17)
[2022-03-11] MEDS: Rosuvastatin 10 MG TAB PO SCH (21:17)
[2022-03-12] MEDS: HumaLOG 300 UNITS/3 ML VIAL SC PRN ×4 (00:54→18:43)
[2022-03-12 05:56] LABS: Hemoglobin 9.1 g/dL (12.0-16.0); Mean Corpuscular HGB CONC 32.3 g/dL (32.0-36.0); Mean Corpuscular Hemoglobin 30.3 pg (27.0-31.0); Mean Corpuscular Volume 93.7 fl (78.0-98.0); Mean Platelet Volume 11.2 fL (7.4-10.4); Platelet Count 105 10x3/uL (130-400); RBC Distribution Width 21.8 % (11.5-14.5); White Blood Cell (WBC) Count 12.9 10x3/uL (4.8-10.8)
[2022-03-12 06:15] LABS: Anisocytosis SLIGHT = 6-15 cells (100X) (0-5/hpf); Lymphocytes 9 % (21-51); MDiff Complete? YES; Monocytes 3 % (0-10); Myelocyte 1 % (0-0); Neutrophil 87 % (42-75); Platelet Morphology Comment Appears Decreased
[2022-03-12 06:19] LABS: Albumin 2.6 g/dL (3.4-4.8); Anion Gap 12 mmol/L (10-20); BUN (Urea Nitrogen) 48 mg/dL (9.8-20.1); BUN/Creatinine Ratio 27.75; CK (CPK) Less than 9 U/L (29-168); Calc. Creatinine Clearance 22 mL/min (70-130); Calcium 7.9 mg/dL (7.8-10.44); Carbon Dioxide 16 mmol/L (23-31); Chloride 108 mmol/L (98-107); Estimated GFR 28; Glucose 347 mg/dL (83-110); Phosphorus 1.9 mg/dL (2.3-4.7); Potassium 4.2 mmol/L (3.5-5.1); Sodium 132 mmol/L (136-145)
[2022-03-12] MEDS: Levothyroxine 150 MCG TAB PO SCH (06:38)
[2022-03-12 07:13] LABS: Magnesium 2.1 mg/dL (1.6-2.6)
[2022-03-12] MEDS ORDERED: Ciprofloxacin 500 MG TAB PO SCH (09:00)
[2022-03-12] MEDS ORDERED: Insulin Glargine 30 UNITS/0.3 ML VIAL SC SCH (09:45)
[2022-03-12] MEDS: Insulin Glargine 30 UNITS/0.3 ML VIAL SC SCH ×2 (10:32→20:47)
[2022-03-12] MEDS: Gabapentin 300 MG CAP PO SCH ×2 (11:03→20:47)
[2022-03-12] MEDS: Apixaban 5 MG TAB PO SCH ×2 (11:04→20:45)
[2022-03-12] MEDS: metroNIDAZOLE 500 MG TAB PO SCH ×2 (11:04→16:06)
[2022-03-12] MEDS: Docusate 100 MG CAP PO SCH ×2 (11:04→20:46)
[2022-03-12] MEDS: Dexamethasone 4 mg/ml Vial SLOW IVP SCH (11:07)
[2022-03-12] MEDS: PHOS-NAK 1 PKT PACK PO SCH ×2 (11:10→16:05)
[2022-03-12] MEDS: Fluconazole In NaCl,Iso-Osm 100 MG, Admixture Fee 1 EACH in Premix Bag 1 BAG IVPB SCH (11:55)
[2022-03-12] MEDS: DAPTOmycin 500 MG in Sodium Chloride 0.9% 100 ML IVPB SCH (16:05)
[2022-03-12] MEDS ORDERED: Vancomycin HCl 500 MG in Sodium Chloride 0.9% 100 ML IVPB SCH (20:00)
[2022-03-12] MEDS: Cholecalciferol 1,000 UNITS (25 MCG) TAB PO SCH (20:46)
[2022-03-12] MEDS: DULoxetine 30 MG CAP PO SCH (20:47)
[2022-03-12] MEDS: Rosuvastatin 10 MG TAB PO SCH (20:47)
[2022-03-13] MEDS: HumaLOG 300 UNITS/3 ML VIAL SC PRN ×3 (00:50→18:05)
[2022-03-13 05:13] LABS: Anion Gap 13 mmol/L (10-20); BUN (Urea Nitrogen) 46 mg/dL (9.8-20.1); Calc. Creatinine Clearance 24 mL/min (70-130); Calcium 7.8 mg/dL (7.8-10.44); Carbon Dioxide 16 mmol/L (23-31); Chloride 110 mmol/L (98-107); Estimated GFR 30; Glucose 216 mg/dL (83-110); Magnesium 1.8 mg/dL (1.6-2.6); Phosphorus 2.6 mg/dL (2.3-4.7); Sodium 135 mmol/L (136-145)
[2022-03-13 05:29] LABS: #Lymphocytes 1.1 thou/uL (1.20-3.40); #Monocytes 0.7 thou/uL (0.11-0.59); #Neutrophils 8.9 thou/uL (1.40-6.50); %Basophils 0.1 % (0.0-1.0); %Eosinophils 0.3 % (0.0-10.0); %Lymphocytes 9.9 % (21.0-51.0); %Monocytes 6.2 % (0.0-10.0); %Neutrophils 83.4 % (42.0-75.0); Hemoglobin 9.2 g/dL (12.0-16.0); Mean Corpuscular HGB CONC 34.2 g/dL (32.0-36.0); Mean Corpuscular Volume 93.4 fl (78.0-98.0); Mean Platelet Volume 10.2 fL (7.4-10.4); Platelet Count 94 10x3/uL (130-400); RBC Distribution Width 21.8 % (11.5-14.5); Red Blood Cell (RBC) Count 2.86 mill/uL (4.20-5.40); White Blood Cell (WBC) Count 10.6 10x3/uL (4.8-10.8)
[2022-03-13] MEDS: Levothyroxine 150 MCG TAB PO SCH (06:38)
[2022-03-13] MEDS ORDERED: Magnesium 2 GM/50 ML(in water) 2 GM in Premix Bag 1 BAG IVPB SCH (08:00)
[2022-03-13] MEDS: Gabapentin 300 MG CAP PO SCH ×2 (10:31→21:08)
[2022-03-13] MEDS: Furosemide 20 MG TAB PO SCH (10:32)
[2022-03-13] MEDS: Apixaban 5 MG TAB PO SCH ×2 (10:33→21:07)
[2022-03-13] MEDS: Docusate 100 MG CAP PO SCH ×2 (10:38→21:08)
[2022-03-13] MEDS: Insulin Glargine 30 UNITS/0.3 ML VIAL SC SCH ×2 (10:38→21:06)
[2022-03-13] MEDS: Fluconazole In NaCl,Iso-Osm 100 MG, Admixture Fee 1 EACH in Premix Bag 1 BAG IVPB SCH (11:54)
[2022-03-13 18:36] LABS: Vancomycin, Random 20.6 ug/mL (See Comment)
[2022-03-13] MEDS: Cholecalciferol 1,000 UNITS (25 MCG) TAB PO SCH (21:07)
[2022-03-13] MEDS: DULoxetine 30 MG CAP PO SCH (21:08)
[2022-03-14] MEDS: Levothyroxine 150 MCG TAB PO SCH (05:38)
[2022-03-14] MEDS: Docusate 100 MG CAP PO SCH ×2 (09:46→20:49)
[2022-03-14] MEDS: Apixaban 5 MG TAB PO SCH (09:46)
[2022-03-14] MEDS: Insulin Glargine 30 UNITS/0.3 ML VIAL SC SCH ×2 (09:46→20:49)
[2022-03-14] MEDS: Gabapentin 300 MG CAP PO SCH ×2 (09:47→20:49)
[2022-03-14] MEDS: Furosemide 20 MG TAB PO SCH (09:47)
[2022-03-14] MEDS: Fluconazole In NaCl,Iso-Osm 100 MG, Admixture Fee 1 EACH in Premix Bag 1 BAG IVPB SCH (10:27)
[2022-03-14] MEDS: HumaLOG 300 UNITS/3 ML VIAL SC PRN ×2 (10:42→17:20)
[2022-03-14] MEDS ORDERED: DAPTOmycin 500 MG in Sodium Chloride 0.9% 100 ML IVPB SCH (13:00)
[2022-03-14] MEDS: DULoxetine 30 MG CAP PO SCH (20:49)
[2022-03-14] MEDS: Cholecalciferol 1,000 UNITS (25 MCG) TAB PO SCH (20:49)
[2022-03-14] MEDS: Apixaban 2.5 MG TAB PO SCH (20:49)
[2022-03-15] MEDS: Levothyroxine 150 MCG TAB PO SCH (05:45)
[2022-03-15 08:11] VITALS: TEMP 98.2
[2022-03-15] MEDS: Docusate 100 MG CAP PO SCH (09:28)
[2022-03-15] MEDS: Furosemide 20 MG TAB PO SCH (09:28)
[2022-03-15] MEDS: Gabapentin 300 MG CAP PO SCH (09:28)
[2022-03-15] MEDS: Apixaban 2.5 MG TAB PO SCH (09:28)
[2022-03-15] MEDS: Insulin Glargine 30 UNITS/0.3 ML VIAL SC SCH (09:29)
[2022-03-15] MEDS: Fluconazole In NaCl,Iso-Osm 100 MG, Admixture Fee 1 EACH in Premix Bag 1 BAG IVPB SCH (09:32)
[2022-03-15 15:13] VITALS: BP 122/78
== END 2022-03-15 15:24 | disposition home health service (06) | DRG 872 ==
LOC: ERS 20:36 → ERHOLD 03-06 00:42 → 2NO 03-06 00:51
PROVIDERS: ADMIT Internal Medicine; ATTEND Family Medicine
PROC: 3E03329 Introduction of Other Anti-infective into Peripheral Vein, Percutaneous Approach (ICD-10-PCS; 2022-03-05)
PROC: 02HV33Z Insertion of Infusion Device into Superior Vena Cava, Percutaneous Approach (ICD-10-PCS; principal; 2022-03-14)
PROC: B548ZZA Ultrasonography of Superior Vena Cava, Guidance (ICD-10-PCS; 2022-03-14)
DX: A41.02 Sepsis due to Methicillin resistant Staphylococcus aureus (principal); N17.9 Acute kidney failure, unspecified; B37.49 Other urogenital candidiasis; I13.0 Hypertensive heart and chronic kidney disease with heart failure and stage 1 through stage 4 chronic kidney disease, or unspecified chronic kidney disease; I50.32 Chronic diastolic (congestive) heart failure; Z66 Do not resuscitate; K11.21 Acute sialoadenitis; I48.91 Unspecified atrial fibrillation; R65.20 Severe sepsis without septic shock; E78.5 Hyperlipidemia, unspecified; K21.9 Gastro-esophageal reflux disease without esophagitis; E03.9 Hypothyroidism, unspecified; E11.649 Type 2 diabetes mellitus with hypoglycemia without coma; F03.90 Unspecified dementia, unspecified severity, without behavioral disturbance, psychotic disturbance, mood disturbance, and anxiety; N18.9 Chronic kidney disease, unspecified; D69.6 Thrombocytopenia, unspecified; Z85.038 Personal history of other malignant neoplasm of large intestine; Z90.49 Acquired absence of other specified parts of digestive tract; Z79.01 Long term (current) use of anticoagulants; Z88.1 Allergy status to other antibiotic agents; Z88.0 Allergy status to penicillin; Z88.2 Allergy status to sulfonamides; Z79.890 Hormone replacement therapy; Z79.899 Other long term (current) drug therapy; Z79.4 Long term (current) use of insulin; Z93.3 Colostomy status; Z95.2 Presence of prosthetic heart valve; Z83.49 Family history of other endocrine, nutritional and metabolic diseases; Z83.3 Family history of diabetes mellitus; Z87.891 Personal history of nicotine dependence; Z20.822 Contact with and (suspected) exposure to COVID-19
CPT/HCPCS: 36415; 36416; 36569; 70490; 71045; 80048; 80053; 80069; 80202; 81001; 82550; 83605; 83735; 83880; 84100; 84484; 85025; 85610; 85730; 86140; 87040; 87077; 87086; 87149; 87186; 87811; 93005; 96374; 96375; 96376; C1751; J0692; J0878; J1100; J1450; J1644; J1815; J2270; J3370; J3370-JW; J3475; J3490; J7042; U0002